=== PATIENT | female | born 1955 | race African-American/Black ===

== ENCOUNTER → 2016-11-12 | Outpatient (CLI) | payer MEDICARE, OTHER | LOC: RAD 16:34 | PROVIDERS: ATTEND Internal Medicine | DX: M25.561 Pain in right knee (principal); M17.11 Unilateral primary osteoarthritis, right knee ==

== ENCOUNTER → 2017-01-09 | Outpatient (CLI) | payer MEDICARE, OTHER ==
--- NOTE | 2017-01-10 13:13 | WOMENS IMAGING REPORT ---
EXAM DESCRIPTION: BILAT SCREENING MAMMO W/CAD COMPLETED DATE/TIME: 01/09/2017 8:06 am REASON FOR STUDY: Z12.31, ROUTINE SCREENING MAMMO Z12.31 ENCNTR SCREEN MAMMOGRAM FOR MALIGNANT NEOP LASM OF LISA COMPARISON: 2012, 2014 TECHNIQUE: Standard craniocaudal and mediolateral oblique views of each breast recorded using [employer] l acquisition. LIMITATIONS: None. FINDINGS: Findings present which are benign by mammographic criteria. No suspicious masses, calcifi cations or architectural distortion. Pertinent benign findings: Stable bilateral breast parenchymal calcifications Read with the assistance of CAD. .[facility] - R2 Cenova Version 1.3 .[facility] - R2 Cenova Version 1.3 .[facility] - R2 Cenova Version 2.4 .[facility]2 Cenova Version 2.4 .[facility] - R2 Music Artist Version 9.2 Benign mammographic findings may include one or more of the following: Smooth masses, popcorn/rim/co arse calcifications, asymmetries, post-procedure changes, and lesions with long-standing stability. IMPRESSION: BENIGN MAMMOGRAPHIC FINDINGS. BIRADS 2 BREAST DENSITY: b. There are scattered areas of fibroglandular density. BIRAD: 2 BENIGN FINDING(S) RECOMMENDATION: ROUTINE SCREENING Please consider bilateral screening tomosynthesis in January 2018 COMMENT: The patient has been notified of the results by letter per SA requirements. Additional no tification policies are in place for contacting patient with suspicious or incomplete findings. Quality ID #[id number]: The [employer] recommends an annual screening mammogram for women aged 40 years or over. This facility utilizes a reminder system to ensure that all patients receive reminder letters, and/or direct phone calls for appointments. This includes reminders for routine scr eening mammograms, diagnostic mammograms, or other Breast Imaging Interventions when appropriate. Th is patient will be placed in the appropriate reminder system. The [employer] (ACR) has developed recommendations for screening MRI of the breast s in certain patient populations, to be used in conjunction with mammography. Breast MRI surveillanc e may be appropriate for women with more than 20% lifetime risk of developing breast cancer as deter mined by genetic testing, significant family history of the disease, or history of mantle radiation f or Hodgkins Disease. ACR Practice Guidelines 2008. TECHNICAL DOCUMENTATION: FINDING NUMBER: (1) ASSESSMENT: (1) JOB ID: [id number] [employer]- All Rights Reserved
== END ==
LOC: WI 13:26
PROVIDERS: ATTEND Internal Medicine
DX: Z12.31 Encounter for screening mammogram for malignant neoplasm of breast (principal)
CPT/HCPCS: 77067; G0202

== ENCOUNTER → 2017-01-10 | Outpatient (CLI) | payer MEDICARE, OTHER ==
[2017-01-10 16:31] LABS: ANION GAP 10 (5-19); BLOOD UREA NITROGEN 34 mg/dL (7-20); CALCIUM 9.1 mg/dL (8.4-10.2); CARBON DIOXIDE 15 mmol/L (22-30); CHLORIDE 112 mmol/L (98-107); CREATININE RESULT 1.03 mg/dL (0.52-1.25); GLUCOSE 229 mg/dL (75-110); POTASSIUM 5.3 mmol/L (3.6-5.0); SODIUM 137.4 mmol/L (137-145)
== END ==
LOC: OD 15:22
PROVIDERS: ATTEND Internal Medicine
DX: E87.5 Hyperkalemia (principal)
CPT/HCPCS: 36415; 80048

== ENCOUNTER → 2017-01-20 | Outpatient (CLI) | payer MEDICARE, OTHER ==
--- NOTE | 2017-01-20 15:55 | RADIOLOGY REPORT (SQ) ---
EXAM DESCRIPTION: MRI CERVICAL SPINE WITHOUT COMPLETED DATE/TIME: 01/20/2017 12:50 pm REASON FOR STUDY: NERVE PAIN M89.9 DISORDER OF BONE, UNSPECIFIED COMPARISON: None. TECHNIQUE: Sagittal and Axial imaging includes T1, T2, STIR and gradient echo sequences. LIMITATIONS: None. FINDINGS: ALIGNMENT: Normal. VERTEBRAE: Intact. BONE MARROW: Fatty endplate changes along the inferior aspect of C6 and upper endplate of C7. DISCS: Disc space loss of height with mild anterior osteophyte formation at C6-7. Elsewhere, there i s decreased T2 weighted intervertebral disc signal with maintained disc space height. HARDWARE: None in the spine. CORD AND BASE OF BRAIN: Normal in size and signal intensity. SOFT TISSUES: No soft tissue masses. C1-C2: No significant spinal stenosis. C2-C3: No significant spinal stenosis or exit foraminal stenosis. C3-C4: No significant spinal stenosis or exit foraminal stenosis. Minimal posterior disc bulging. C4-C5: No significant spinal stenosis or exit foraminal stenosis. Minimal posterior disc bulging C5-C6: Tiny central disc protrusion/herniation with inferior migration of the extruded fragment. Th is partly effaces the ventral thecal sac and abuts the ventral cord without abnormal intrinsic cord s ignal. Minimal ventral cord flattening. Borderline central canal narrowing. No significant foramin al stenosis. C6-C7: Mild diffuse posterior disc bulge and bony spurring is present with ligamentum flavum thickeni ng. Borderline central canal narrowing with partial effacement of the CSF around the cervical cord. No cord flattening or abnormal intrinsic cord signal. Mild right foraminal narrowing from facet and uncovertebral hypertrophy. No significant left foraminal narrowing. C7-T1: No significant spinal stenosis or exit foraminal stenosis. OTHER: No other significant finding. IMPRESSION: Tiny central disc herniation with slight inferior migration of the extruded fragment at C5-6. This causes minimal ventral cord flattening without abnormal intrinsic cord signal. Borderlin e central canal narrowing. No foraminal narrowing. Broad diffuse posterior disc bulge and bony spurring at C6-7, with borderline central canal and mild right foraminal narrowing. TECHNICAL DOCUMENTATION: JOB ID: [id number]- All Rights Reserved
== END ==
LOC: RAD 11:28
PROVIDERS: ATTEND Internal Medicine
DX: M79.2 Neuralgia and neuritis, unspecified (principal); M50.222 Other cervical disc displacement at C5-C6 level
CPT/HCPCS: 72141

== ENCOUNTER → 2017-03-14 | Outpatient (CLI) | payer MEDICARE, OTHER ==
--- NOTE | 2017-03-14 12:02 | RADIOLOGY REPORT (SQ) ---
EXAM DESCRIPTION: CHEST PA/LATERAL COMPLETED DATE/TIME: 03/14/2017 11:39 am REASON FOR STUDY: PRE-OP COMPARISON: 01/06/2016 EXAM PARAMETERS: NUMBER OF VIEWS: two views TECHNIQUE: Digital Frontal and Lateral radiographic views of the chest acquired. RADIATION DOSE: NA LIMITATIONS: none FINDINGS: LUNGS AND PLEURA: No opacities, masses or pneumothorax. No pleural effusion. MEDIASTINUM AND HILAR STRUCTURES: No masses or contour abnormalities. HEART AND VASCULAR STRUCTURES: Heart normal size. No evidence for failure. BONES: No acute findings. HARDWARE: None in the chest. OTHER: No other significant finding. IMPRESSION: NO SIGNIFICANT RADIOGRAPHIC FINDING IN THE CHEST. TECHNICAL DOCUMENTATION: JOB ID: [id number] [employer]- All Rights Reserved
[2017-03-14 12:17] LABS: ABSOLUTE LYMPHOCYTES (AUTO) 1.3 10^3/uL (0.5-4.7); ABSOLUTE MONOCYTES (AUTO) 0.3 10^3/uL (0.1-1.4); BASOPHILS % (AUTO) 0.5 % (0-2); EOSINOPHILS % (AUTO) 0.4 % (0-6); HEMATOCRIT 31.9 % (36.0-47.0); HEMOGLOBIN 10.5 g/dL (12.0-15.5); HGB HCT DIFFERENCE -0.4; LYMPHOCYTES % (AUTO) 23.5 % (13-45); MEAN CORPUSCULAR HEMOGLOBIN 27.7 pg (27.0-33.4); MEAN CORPUSCULAR HGB CONC 32.7 g/dL (32.0-36.0); MEAN CORPUSCULAR VOLUME 85 fl (80-97); MONOCYTES % (AUTO) 5.8 % (3-13); RED BLOOD COUNT 3.77 10^6/uL (3.72-5.28); RED CELL DISTRIBUTION WIDTH 15.3 % (11.5-14.0); SEGMENTED NEUTROPHILS % (AUTO) 69.8 % (42-78); WHITE BLOOD COUNT 5.7 10^3/uL (4.0-10.5)
[2017-03-14 12:18] LABS: ABSOLUTE LYMPHOCYTES (AUTO) 1.3 10^3/uL (0.5-4.7); ABSOLUTE MONOCYTES (AUTO) 0.3 10^3/uL (0.1-1.4); BASOPHILS % (AUTO) 0.5 % (0-2); EOSINOPHILS % (AUTO) 0.4 % (0-6); HEMATOCRIT 31.9 % (36.0-47.0); HEMOGLOBIN 10.5 g/dL (12.0-15.5); HGB HCT DIFFERENCE -0.4; LYMPHOCYTES % (AUTO) 23.5 % (13-45); MEAN CORPUSCULAR HEMOGLOBIN 27.7 pg (27.0-33.4); MEAN CORPUSCULAR HGB CONC 32.7 g/dL (32.0-36.0); MEAN CORPUSCULAR VOLUME 85 fl (80-97); MONOCYTES % (AUTO) 5.8 % (3-13); RED BLOOD COUNT 3.77 10^6/uL (3.72-5.28); RED CELL DISTRIBUTION WIDTH 15.3 % (11.5-14.0); SEGMENTED NEUTROPHILS % (AUTO) 69.8 % (42-78); WHITE BLOOD COUNT 5.7 10^3/uL (4.0-10.5)
[2017-03-14 12:31] LABS: APPEARANCE,URINE SLIGHTLY-CLOUDY; BILIRUBIN,URINE NEGATIVE (NEGATIVE); GLUCOSE, URINE >=500 mg/dL (NEGATIVE); KETONES,URINE NEGATIVE (NEGATIVE); LEUKOCYTE ESTERASE,URINE NEGATIVE (NEGATIVE); NITRITE,URINE NEGATIVE (NEGATIVE); PROTEIN,URINE NEGATIVE (NEGATIVE); URINE SPECIFIC GRAVITY 1.018; UROBILINOGEN,URINE NEGATIVE mg/dL (<2.0)
[2017-03-14 12:45] LABS: ANION GAP 9 (5-19); BLOOD UREA NITROGEN 18 mg/dL (7-20); CALCIUM 10.3 mg/dL (8.4-10.2); CARBON DIOXIDE 25 mmol/L (22-30); CHLORIDE 107 mmol/L (98-107); CREATININE RESULT 0.97 mg/dL (0.52-1.25); GLUCOSE 98 mg/dL (75-110); MAGNESIUM 2.3 mg/dL (1.6-2.3); PHOSPHORUS 3.9 mg/dL (2.5-4.5); POTASSIUM 4.8 mmol/L (3.6-5.0); SODIUM 141.1 mmol/L (137-145)
[2017-03-14 12:46] LABS: APPEARANCE,URINE SLIGHTLY-CLOUDY; BILIRUBIN,URINE NEGATIVE (NEGATIVE); GLUCOSE, URINE >=500 mg/dL (NEGATIVE); KETONES,URINE NEGATIVE (NEGATIVE); LEUKOCYTE ESTERASE,URINE NEGATIVE (NEGATIVE); NITRITE,URINE NEGATIVE (NEGATIVE); PROTEIN,URINE NEGATIVE (NEGATIVE); URINE SPECIFIC GRAVITY 1.018; UROBILINOGEN,URINE NEGATIVE mg/dL (<2.0)
[2017-03-14 13:03] LABS: BLOOD UREA NITROGEN 18 mg/dL (7-20); CALCIUM 10.3 mg/dL (8.4-10.2); CREATININE RESULT 0.97 mg/dL (0.52-1.25); GLUCOSE 98 mg/dL (75-110); POTASSIUM 4.8 mmol/L (3.6-5.0)
[2017-03-14 13:04] LABS: ANION GAP 9 (5-19); CARBON DIOXIDE 25 mmol/L (22-30); CHLORIDE 107 mmol/L (98-107); SODIUM 141.1 mmol/L (137-145)
--- NOTE | 2017-03-14 13:16 | EKG REPORT ---
SEVERITY:- ABNORMAL ECG - SINUS RHYTHM PROBABLE LEFT VENTRICULAR HYPERTROPHY : Confirmed by: Justo Hinson MD 14-Mar-2017 13:15:36
== END ==
LOC: OD 10:16
PROVIDERS: ATTEND Surgery Trauma Surgery
DX: Z01.810 Encounter for preprocedural cardiovascular examination (principal); Z01.812 Encounter for preprocedural laboratory examination; Z01.818 Encounter for other preprocedural examination; E11.9 Type 2 diabetes mellitus without complications; Z79.899 Other long term (current) drug therapy
CPT/HCPCS: 36415; 71020; 80048; 80197; 81001; 83036; 83735; 84100; 85025; 93005; 93010

== ENCOUNTER → 2017-06-02 | Outpatient (CLI) | payer MEDICARE, OTHER ==
[2017-06-02 15:06] LABS: ABSOLUTE EOSINOPHILS # (AUTO) 0.1 10^3/uL (0.0-0.6); ABSOLUTE MONOCYTES (AUTO) 0.3 10^3/uL (0.1-1.4); ABSOLUTE NEUT (AUTO) 4.1 10^3/uL (1.7-8.2); BASOPHILS % (AUTO) 0.5 % (0-2); HEMOGLOBIN 10.6 g/dL (12.0-15.5); HGB HCT DIFFERENCE -1.2; LYMPHOCYTES % (AUTO) 18.1 % (13-45); MEAN CORPUSCULAR HEMOGLOBIN 26.8 pg (27.0-33.4); MEAN CORPUSCULAR HGB CONC 32.2 g/dL (32.0-36.0); MEAN CORPUSCULAR VOLUME 83 fl (80-97); MONOCYTES % (AUTO) 5.5 % (3-13); RED BLOOD COUNT 3.96 10^6/uL (3.72-5.28); RED CELL DISTRIBUTION WIDTH 15.3 % (11.5-14.0); SEGMENTED NEUTROPHILS % (AUTO) 74.9 % (42-78); WHITE BLOOD COUNT 5.4 10^3/uL (4.0-10.5)
[2017-06-02 15:09] LABS: APPEARANCE,URINE CLEAR; BILIRUBIN,URINE NEGATIVE (NEGATIVE); GLUCOSE, URINE NEGATIVE (NEGATIVE); KETONES,URINE NEGATIVE (NEGATIVE); LEUKOCYTE ESTERASE,URINE NEGATIVE (NEGATIVE); NITRITE,URINE NEGATIVE (NEGATIVE); PROTEIN,URINE NEGATIVE (NEGATIVE); URINE SPECIFIC GRAVITY 1.006; UROBILINOGEN,URINE NEGATIVE mg/dL (<2.0)
[2017-06-02 15:30] LABS: ANION GAP 12 (5-19); BLOOD UREA NITROGEN 19 mg/dL (7-20); CALCIUM 9.1 mg/dL (8.4-10.2); CARBON DIOXIDE 23 mmol/L (22-30); CHLORIDE 108 mmol/L (98-107); CREATININE RESULT 0.98 mg/dL (0.52-1.25); GLUCOSE 85 mg/dL (75-110); PHOSPHORUS 3.9 mg/dL (2.5-4.5); POTASSIUM 5.1 mmol/L (3.6-5.0); SODIUM 142.7 mmol/L (137-145)
== END ==
LOC: OD 14:03
PROVIDERS: ATTEND Surgery Trauma Surgery
DX: Z94.0 Kidney transplant status (principal)
CPT/HCPCS: 36415; 80048; 80197; 81001; 83735; 84100; 85025

== ENCOUNTER 2017-08-02 11:31 | Emergency (ER) | payer MEDICARE, OTHER ==
--- NOTE | 2017-08-02 12:11 | ER Document Report ---
ED General - General Chief Complaint: Knee Pain Stated Complaint: LEG PAIN Time Seen by Provider: 08/02/17 12:06 Mode of Arrival: Ambulatory Information source: Patient Notes: 61-year-old female presents with complaints of right knee calf swelling of 3 month duration. Patient notes symptoms started right after her surgery but she has not been evaluated for it except recently by primary care physician who was concerned about a possible blood clot, patient denies any chest pain sob TRAVEL OUTSIDE OF THE [place] IN LAST 30 DAYS: No - HPI Onset: Other Onset/Duration: Persistent Quality of pain: Achy Severity: Mild Pain Level: 1 Associated symptoms: Leg swelling Exacerbated by: Movement, Walking Relieved by: Denies Similar symptoms previously: No Recently seen / treated by doctor: No - Related Data Allergies/Adverse Reactions: No Known Allergies Allergy (Verified 08/02/17 11:31) Past Medical History - Social History Smoking Status: Never Smoker Cigarette use (# per day): No Chew tobacco use (# tins/day): No Smoking Education Provided: No Family History: Reviewed & Not Pertinent - Past Medical History Cardiac Medical History: Reports: Hx Hypercholesterolemia, Hx Hypertension, Hx Heart Murmur Denies: Hx Atrial Fibrillation, Hx Congestive Heart Failure, Hx Coronary Artery Disease, Hx Heart Attack, Hx Peripheral Vascular Disease, Hx Pulmonary Embolism Pulmonary Medical History: Reports: Hx Sleep Apnea - CPAP Denies: Hx Asthma, Hx Bronchitis, Hx COPD, Hx Pneumonia, Hx Respiratory Failure, Hx Tuberculosis Neurological Medical History: Denies: Hx Cerebrovascular Accident, Hx Seizures Endocrine Medical History: Reports: Hx Diabetes Mellitus Type 2. Denies: Hx Graves' Disease, Hx Hyperthyroidism, Hx Hypothyroidism Renal/ Medical History: Reports: Hx End Stage Renal Disease - prior to transplant, Hx Hemodialysis. Denies: Hx Kidney Stones, Hx Peritoneal Dialysis Malignancy Medical History: Denies: Hx Lung Cancer GI Medical History: Musculoskeltal Medical History: Reports Hx Arthritis, Denies Hx Fibromyalgia, Denies Hx Multiple Sclerosis, Denies Hx Muscular Dystrophy Psychiatric Medical History: Denies: Hx Dementia Traumatic Medical History: Denies: Hx Fractures Past Surgical History: Reports: Hx Abdominal Surgery - kidney transplant 2015, Hx Cholecystectomy, Hx Gastric Bypass Surgery, Hx Gynecologic Surgery - hysterectomy, Hx Hysterectomy, Hx Kidney (Renal Surgery) - renal transplant September 2015, Hx Orthopedic Surgery - rt knee 04/22, Hx Vascular Surgery - Left upper arm AV fistula, Other - Left vitrectomy, left carpal tunnel release, gastric bypass 04/17/2011. Denies: Hx Appendectomy, Hx Bowel Surgery, Hx Section, Hx Coronary Artery Bypass Graft, Hx Herniorrhaphy, Hx Mastectomy, Hx Pacemaker, Hx Tonsillectomy, Hx Tubal Ligation - Immunizations Immunizations up to date: Yes Hx Diphtheria, Pertussis, Tetanus Vaccination: Yes Hx Pneumococcal Vaccination: 03/07/14 Review of Systems - Review of Systems Notes: REVIEW OF SYSTEMS: CONSTITUTIONAL : Denies fever, chills, or sweats. Denies recent illness. EENT: Denies eye, ear, throat, or mouth pain or symptoms. Denies nasal or sinus congestion or discharge. Denies throat, tongue, or mouth swelling or difficulty swallowing. CARDIOVASCULAR: Denies chest pain. Denies palpitations or racing or irregular heart beat. Denies ankle edema. RESPIRATORY: Denies cough, cold, or chest congestion. Denies shortness of breath, difficulty breathing, or wheezing. GASTROINTESTINAL: Denies abdominal pain or distention. Denies nausea, vomiting , or diarrhea. Denies blood in vomitus, stools, or per rectum. Denies black, tarry stools. Denies constipation. GENITOURINARY: Denies difficulty urinating, painful urination, burning, frequency, blood in urine, or discharge. FEMALE GENITOURINARY: Denies vaginal bleeding, heavy or abnormal periods, irregular periods. Denies vaginal discharge or odor. MUSCULOSKELETAL: leg pain SKIN: Denies rash, lesions or sores. HEMATOLOGIC : Denies easy bruising or bleeding. LYMPHATIC: Denies swollen, enlarged glands. NEUROLOGICAL: Denies confusion or altered mental status. Denies passing out or loss of consciousness. Denies dizziness or lightheadedness. Denies headache. Denies weakness or paralysis or loss of use of either side. Denies problems with gait or speech. Denies sensory loss, numbness, or tingling. Denies seizures. PSYCHIATRIC: Denies anxiety or stress. Denies depression, suicidal ideation, or homicidal ideation. ALL OTHER SYSTEMS REVIEWED AND NEGATIVE. PHYSICAL EXAMINATION: GENERAL: Well-appearing, well-nourished and in no acute distress. HEAD: Atraumatic, normocephalic. EYES: Pupils equal round and reactive to light, extraocular movements intact, conjunctiva are normal. ENT: Nares patent, oropharynx clear without exudates. Moist mucous membranes. NECK: Normal range of motion, supple without lymphadenopathy LUNGS: Breath sounds clear to auscultation bilaterally and equal. No wheezes rales or rhonchi. HEART: Regular rate and rhythm without murmurs ABDOMEN: Soft, nontender, nondistended abdomen. No guarding, no rebound. No masses appreciated. Female : deferred Musculoskeletal: right leg edema, knee pain with rom NEUROLOGICAL: Cranial nerves grossly intact. Normal speech, normal gait. Normal sensory, motor exams PSYCH: Normal mood, normal affect. SKIN: post surgical Dictation was performed using [employer] recognition software Physical Exam - Vital signs Vitals: Temp Pulse Resp BP Pulse Ox 98.5 F 66 16 169/53 H 96 08/02/17 11:36 08/02/17 11:36 08/02/17 11:36 08/02/17 11:36 08/02/17 11:36 Course - Re-evaluation Re-evalutation: 08/02/17 12:11 Doppler pending this appears to be chronic for the past 4 months 08/02/17 13:43 Doppler was negative for DVT, patient will be discharged home to follow-up with orthopedics and primary care physician After performing a Medical Screening Examination, I estimate there is LOW risk for RUPTURED ESOPHAGUS, PNEUMOTHORAX, PULMONARY EMBOLISM, ACUTE CORONARY SYNDROME, OR THORACIC AORTIC DISSECTION, thus I consider the discharge disposition reasonable. I have reevaluated this patient multiple times and no significant life threatening changes are noted. The patient and I have discussed the diagnosis and risks, and we agree with discharging home with close follow-up. We also discussed returning to the Emergency Department immediately if new or worsening symptoms occur. We have discussed the symptoms which are most concerning (e.g., bloody sputum, worsening pain or shortness of breath) that necessitate immediate return. - Vital Signs Vital signs: Temp Pulse Resp BP Pulse Ox 98.5 F 66 16 169/53 H 96 08/02/17 11:36 08/02/17 11:36 08/02/17 11:36 08/02/17 11:36 08/02/17 11:36 - Diagnostic Test Radiology reviewed: Image reviewed, Reports reviewed Discharge - Discharge Clinical Impression: Right leg pain Right knee pain Qualifiers: Chronicity: acute Qualified Code(s): M25.561 - Pain in right knee Condition: Stable Disposition: HOME, SELF-CARE Instructions: Leg Pain Nonspecific ([facility]) Referrals: ESTELA MOLINA MD [ACTIVE STAFF] - Follow up tomorrow
[2017-08-02 13:54] VITALS: BP 141/51
--- NOTE | 2017-08-02 14:15 | RADIOLOGY REPORT (SQ) ---
EXAM DESCRIPTION: VENOUS UNILATERAL LOWER COMPLETED DATE/TIME: 08/02/2017 1:56 pm REASON FOR STUDY: right leg edema, replacement knee 3 months ago COMPARISON: 10/17/2015. TECHNIQUE: Dynamic and static chavez scale and color images acquired of the right leg venous system. S elected spectral images acquired with additional compression and augmentation maneuvers. The contrala teral common femoral vein and saphenofemoral junction were also imaged. Images stored on PACS. LIMITATIONS: None. FINDINGS: COMMON FEMORAL: Normal phasicity, compression and augmentation. No visualized echogenic ma terial on chavez scale. No defects on color images. FEMORAL: Normal compression and augmentation. No visualized echogenic material on chavez scale. No defe cts on color images. POPLITEAL: Normal compression, augmentation. No visualized echogenic material on chavez scale. No defec ts on color images. CALF VESSELS: Normal compression, augmentation. No visualized echogenic material on chavez scale. No de fects on color images. GSV and SSV: Normal compression, augmentation. No visualized echogenic material on chavez scale. No def ects on color images. OTHER: Minimal soft tissue interstitial edema noted right lower leg. CONTRALATERAL COMMON FEMORAL VEIN AND SAPHENOFEMORAL JUNCTION: Normal phasicity, compression and augmentation. No visualized echogenic material on chavez scale. No de fects on color images. IMPRESSION: MINIMAL SOFT TISSUE EDEMA RIGHT LOWER LEG. NO EVIDENCE OF DEEP VEIN THROMBOSIS. TECHNICAL DOCUMENTATION: JOB ID: [id number] [employer]- All Rights Reserved
== END 2017-08-02 13:54 | disposition home or self-care (01) ==
LOC: ER 11:31
DX: M25.561 Pain in right knee (principal); M79.604 Pain in right leg; R60.0 Localized edema; I10 Essential (primary) hypertension; E11.9 Type 2 diabetes mellitus without complications; Z94.0 Kidney transplant status
CPT/HCPCS: 93971; 99283

== ENCOUNTER → 2017-09-01 | Outpatient (CLI) | payer MEDICARE, OTHER ==
--- NOTE | 2017-09-01 13:43 | RADIOLOGY REPORT (SQ) ---
EXAM DESCRIPTION: MRI THORACIC SPINE COMBO COMPLETED DATE/TIME: 09/01/2017 11:08 am REASON FOR STUDY: ABN FINDINGS ON DX IMAGING OF OTHER SPECIFIED BODY STRUCTURES (R93.8) R93.8 ABNOR MAL FINDINGS ON DIAGNOSTIC IMAGING OF BODY STRUCT COMPARISON: Bone scan 06/27/2014, 08/16/2015 CT lumbar spine 01/31/2015 Lumbar spine plain films 02/14/2015 MRI lumbar spine 09/01/2017 MRI cervical spine 01/20/2017 TECHNIQUE: Sagittal and Axial imaging includes T1, T2, STIR and gradient echo sequences. T1 post ga dolinium sequences. CONTRAST TYPE AND DOSE: 10 mL Multihance. RENAL FUNCTION: GFR > 60. LIMITATIONS: Mild motion artifact throughout the study FINDINGS: LOCALIZER: No worrisome findings. ALIGNMENT: Normal. VERTEBRAE: No compression deformities. There is patchy sclerosis in the T12 vertebral body, similar compared to prior studies BONE MARROW: Sclerosis in the T12 vertebral body without dorsal bowing of the bony cortex or epidural spread of tumor. Advanced fatty degenerative endplate changes at T8-9. HARDWARE: None in the spine. CORD: Normal in size and signal intensity. SOFT TISSUES: No soft tissue masses. THORACIC DISCS T1-T12: No significant central or foraminal stenosis. No disc herniation. LOWER CERVICAL: Not well-visualized UPPER LUMBAR: Please see MRI report from lumbar spine same date ENHANCEMENT: No abnormal thoracic cord or conus enhancement. No definite abnormal vertebral body enh ancement. OTHER: No other significant finding. IMPRESSION: No MR evidence of significant central canal stenosis or cord impingement. No abnormal c onus or thoracic cord contrast enhancement. TECHNICAL DOCUMENTATION: JOB ID: [id number] [employer]- All Rights Reserved Reading location - IP/workstation name: [email or web address]
--- NOTE | 2017-09-01 13:53 | RADIOLOGY REPORT (SQ) ---
EXAM DESCRIPTION: MRI LUMBAR SPINE COMBO COMPLETED DATE/TIME: 09/01/2017 11:08 am REASON FOR STUDY: ABN FINDINGS ON DX IMAGING OF OTHER SPECIFIED BODY STRUCTURES (R93.8) R93.8 ABNOR MAL FINDINGS ON DIAGNOSTIC IMAGING OF BODY STRUCT COMPARISON: Bone scan 06/27/2014, 08/16/2015 CT lumbar spine 01/31/2015, 06/01/2014 Lumbar spine plain films 02/14/2015 MRI thoracic spine 09/01/2017 MRI cervical spine 01/20/2017 TECHNIQUE: Sagittal and Axial imaging includes T1, T1 post gadolinium, T2, STIR and gradient echo se quences. Coronal T2/HASTE imaging. CONTRAST TYPE AND DOSE: 10 mL Multihance. RENAL FUNCTION: GFR > 60. LIMITATIONS: None. 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 SEGMENTATION: No transitional anatomy. The lowest well-developed disc space is labeled L5-S1. ALIGNMENT: Anatomic. VERTEBRAE: Diffuse sclerosis in the T12 vertebral body, similar compared to previous studies BONE MARROW: Stable sclerosis of the T12 vertebral body. Fatty marrow changes at the anterior superi or corner of L1, and L2, and along the inferior endplate of L4. DISC SIGNAL: Diffuse decreased T2 weighted intervertebral disc signal POSTERIOR ELEMENTS: Generally intact. No pars defect evident. HARDWARE: None in the spine. CORD AND CONUS: Normal in size and signal intensity. Conus at the L2 level. SOFT TISSUES: No aortic aneurysm seen. No bulky retroperitoneal adenopathy or mass. No paraspinal mas s or fluid. T10-11, T11-12 and T12-L1 exhibit bilateral facet arthropathy without central or foraminal encroachme nt. L1-L2: No significant spinal stenosis or exit foraminal stenosis. L2-L3: No significant spinal stenosis or exit foraminal stenosis. Mild bilateral facet arthropathy L3-L4: Minimal posterior disc bulging, mild bilateral facet arthropathy. No significant central or f oraminal encroachment. L4-L5: Broad diffuse posterior disc bulging right greater than left and moderate bilateral facet and ligament hypertrophy. Borderline central canal narrowing. Mild bilateral inferior foraminal narrowi ng without exiting L4 nerve root impingement. L5-S1: Mild posterior disc bulging is present, mild bilateral facet hypertrophy. No central or broderick inal encroachment. SACRUM: Visualized upper sacrum intact. ENHANCEMENT: No abnormal conus or lumbar nerve root enhancement. No abnormal vertebral body marrow e nhancement. OTHER: No other significant findings. IMPRESSION: Stable T12 vertebral body sclerosis compared to previous exams. No abnormal conus or lumbar nerve root enhancement or nodules TECHNICAL DOCUMENTATION: JOB ID: [id number] [employer]- All Rights Reserved Reading location - IP/workstation name: [email or web address]
== END ==
LOC: RAD 09:07
PROVIDERS: ATTEND Internal Medicine Medical Oncology
DX: G95.89 Other specified diseases of spinal cord (principal); R93.8 Abnormal findings on diagnostic imaging of other specified body structures
CPT/HCPCS: 82565; 72157; 72158; A9577

== ENCOUNTER → 2017-09-09 | Outpatient (CLI) | payer MEDICARE, OTHER ==
[2017-09-09 13:41] LABS: ABSOLUTE EOSINOPHILS # (AUTO) 0.1 10^3/uL (0.0-0.6); ABSOLUTE LYMPHOCYTES (AUTO) 1.1 10^3/uL (0.5-4.7); ABSOLUTE MONOCYTES (AUTO) 0.3 10^3/uL (0.1-1.4); ABSOLUTE NEUT (AUTO) 3.8 10^3/uL (1.7-8.2); BASOPHILS % (AUTO) 0.6 % (0-2); HEMATOCRIT 34.9 % (36.0-47.0); HEMOGLOBIN 11.3 g/dL (12.0-15.5); MEAN CORPUSCULAR HEMOGLOBIN 27.3 pg (27.0-33.4); MEAN CORPUSCULAR HGB CONC 32.3 g/dL (32.0-36.0); MEAN CORPUSCULAR VOLUME 85 fl (80-97); MONOCYTES % (AUTO) 6.2 % (3-13); PLATELET COUNT 176 10^3/uL (150-450); RED BLOOD COUNT 4.12 10^6/uL (3.72-5.28); RED CELL DISTRIBUTION WIDTH 16.4 % (11.5-14.0); SEGMENTED NEUTROPHILS % (AUTO) 71.2 % (42-78); TOTAL CELLS COUNTED % (AUTO) 100 %; WHITE BLOOD COUNT 5.4 10^3/uL (4.0-10.5)
[2017-09-09 13:43] LABS: ABSOLUTE EOSINOPHILS # (AUTO) 0.1 10^3/uL (0.0-0.6); ABSOLUTE MONOCYTES (AUTO) 0.3 10^3/uL (0.1-1.4); ABSOLUTE NEUT (AUTO) 3.7 10^3/uL (1.7-8.2); BASOPHILS % (AUTO) 0.5 % (0-2); HEMATOCRIT 34.9 % (36.0-47.0); HEMOGLOBIN 11.3 g/dL (12.0-15.5); MEAN CORPUSCULAR HEMOGLOBIN 27.6 pg (27.0-33.4); MEAN CORPUSCULAR HGB CONC 32.5 g/dL (32.0-36.0); MEAN CORPUSCULAR VOLUME 85 fl (80-97); MONOCYTES % (AUTO) 5.8 % (3-13); PLATELET COUNT 182 10^3/uL (150-450); RED CELL DISTRIBUTION WIDTH 16.3 % (11.5-14.0); SEGMENTED NEUTROPHILS % (AUTO) 71.7 % (42-78); TOTAL CELLS COUNTED % (AUTO) 100 %; WHITE BLOOD COUNT 5.2 10^3/uL (4.0-10.5)
[2017-09-09 14:02] LABS: ALANINE AMINOTRANSFERASE 30 U/L (9-52); ALBUMIN 4.1 g/dL (3.5-5.0); ALKALINE PHOSPHATASE 199 U/L (38-126); ANION GAP 9 (5-19); ASPARTATE AMINO TRANSFERASE 22 U/L (14-36); BILIRUBIN,DIRECT 0.4 mg/dL (0.0-0.4); BILIRUBIN,TOTAL 0.4 mg/dL (0.2-1.3); BLOOD UREA NITROGEN 20 mg/dL (7-20); CARBON DIOXIDE 26 mmol/L (22-30); CHLORIDE 104 mmol/L (98-107); GLUCOSE 175 mg/dL (75-110); PHOSPHORUS 3.6 mg/dL (2.5-4.5); POTASSIUM 5.2 mmol/L (3.6-5.0); SODIUM 138.8 mmol/L (137-145)
[2017-09-09 14:13] LABS: ANION GAP 9 (5-19); BLOOD UREA NITROGEN 20 mg/dL (7-20); CARBON DIOXIDE 26 mmol/L (22-30); CHLORIDE 104 mmol/L (98-107); GLUCOSE 175 mg/dL (75-110); PHOSPHORUS 3.6 mg/dL (2.5-4.5); POTASSIUM 5.2 mmol/L (3.6-5.0); SODIUM 138.8 mmol/L (137-145)
[2017-09-09 14:15] LABS: APPEARANCE,URINE SLIGHTLY-CLOUDY; BILIRUBIN,URINE NEGATIVE (NEGATIVE); COLOR,URINE YELLOW; GLUCOSE, URINE NEGATIVE (NEGATIVE); KETONES,URINE NEGATIVE (NEGATIVE); LEUKOCYTE ESTERASE,URINE NEGATIVE (NEGATIVE); NITRITE,URINE NEGATIVE (NEGATIVE); PROTEIN,URINE 30 mg/dL (NEGATIVE); URINE SPECIFIC GRAVITY 1.015; UROBILINOGEN,URINE NEGATIVE mg/dL (<2.0)
[2017-09-09 14:21] LABS: APPEARANCE,URINE SLIGHTLY-CLOUDY; BILIRUBIN,URINE NEGATIVE (NEGATIVE); COLOR,URINE YELLOW; GLUCOSE, URINE NEGATIVE (NEGATIVE); KETONES,URINE NEGATIVE (NEGATIVE); LEUKOCYTE ESTERASE,URINE NEGATIVE (NEGATIVE); NITRITE,URINE NEGATIVE (NEGATIVE); PROTEIN,URINE 30 mg/dL (NEGATIVE); URINE SPECIFIC GRAVITY 1.015; UROBILINOGEN,URINE NEGATIVE mg/dL (<2.0)
[2017-09-09 14:42] LABS: UR PRO/CREAT RATIO RESULT 0.3 mg/mg (0.0-0.2); URINE CREATININE 113.5 mg/dL (15-278); URINE PROTEIN 33.8 mg/dL (<12)
[2017-09-11 16:40] LABS: MYCOPHENOLIC ACID 3.8 ug/mL (1.0-3.5)
[2017-09-12 08:16] LABS: TACROLIMUS (FK506) 3.4 ng/mL (2.0-20.0)
== END ==
LOC: OD 12:54
PROVIDERS: ATTEND Surgery Trauma Surgery
DX: N18.2 Chronic kidney disease, stage 2 (mild) (principal); E11.29 Type 2 diabetes mellitus with other diabetic kidney complication; D63.1 Anemia in chronic kidney disease; R80.9 Proteinuria, unspecified; N25.81 Secondary hyperparathyroidism of renal origin; Z79.899 Other long term (current) drug therapy; Z94.0 Kidney transplant status
CPT/HCPCS: 36415; 80048; 80053; 80197; 81001; 82542; 82570; 83735; 83970; 84100; 84156; 85025

== ENCOUNTER → 2017-12-08 | Outpatient (CLI) | payer MEDICARE, OTHER ==
--- NOTE | 2017-12-09 08:22 | RADIOLOGY REPORT (SQ) ---
EXAM DESCRIPTION: MRI HEAD WITHOUT COMPLETED DATE/TIME: 12/08/2017 8:04 pm REASON FOR STUDY: R41.1 ANTEROGRADE AMNESIA R41.1 ANTEROGRADE AMNESIA COMPARISON: None. TECHNIQUE: Multiplanar imaging includes non-contrasted T1, T2, FLAIR, and diffusion with ADC map seq uences. Images stored on PACS. LIMITATIONS: None. FINDINGS: ANATOMY: No anomalies. Normal vascular flow voids. Pituitary fossa normal. CSF SPACES: Normal in size and contour. No hemorrhage. CEREBRUM: Sulci and gyri normal in size and contour. Normal white matter signal on FLAIR imaging. No evidence of hemorrhage, mass, or extraaxial fluid collection. POSTERIOR FOSSA: No signal alteration. No hemorrhage. No edema, masses or mass effect. Internal franklyn tory canals, cerebello-pontine angles, mastoids normal. DIFFUSION IMAGING: Negative for acute or sub-acute infarction. ORBITS: No masses. Globes normal. PARANASAL SINUSES: No fluid levels. Mucosa normal. OTHER: No other significant finding. IMPRESSION: NORMAL MRI OF THE BRAIN WITHOUT INTRAVENOUS GADOLINIUM CONTRAST. EVIDENCE OF ACUTE STROKE: NO. TECHNICAL DOCUMENTATION: JOB ID: [id number] [employer]- All Rights Reserved Reading location - IP/workstation name: [email or web address]
== END ==
LOC: RAD 19:23
PROVIDERS: ATTEND Internal Medicine
DX: R41.1 Anterograde amnesia (principal)
CPT/HCPCS: 70551

== ENCOUNTER 2018-02-11 08:51 | Inpatient (IN) | payer MEDICARE, OTHER ==
[2018-02-11] MEDS ORDERED: NORMAL SALINE 1000 ML 1,000 ML IV ONE (09:24)
[2018-02-11] MEDS ORDERED: ONDANSETRON HCL INJ/PF 4 MG/2 ML SDV IV ONE (09:24)
--- NOTE | 2018-02-11 09:25 | ER Document Report ---
ED General - General Stated Complaint: NAUSEA,VOMITING Time Seen by Provider: 02/11/18 09:18 Notes: This is a 62-year-old female patient emergency department chief complaint of nausea vomiting generally feeling weak. States that she does not feel well. Has been vomiting all day. Patient is status post renal transplant. Status post dialysis. Followed by Dr. Calix. Intermittent fevers at home. Having some low back pain as well. TRAVEL OUTSIDE OF THE [place] IN LAST 30 DAYS: No - HPI Onset: Yesterday Onset/Duration: Gradual, Persistent, Worse Quality of pain: Achy Severity: Moderate Pain Level: 3 Associated symptoms: Body/muscle aches, Nausea, Vomiting - Related Data Allergies/Adverse Reactions: No Known Allergies Allergy (Verified 08/02/17 11:31) Past Medical History - General Information source: Patient - Social History Smoking Status: Never Smoker Frequency of alcohol use: None Drug Abuse: None Lives with: Family Family History: Reviewed & Not Pertinent - Past Medical History Cardiac Medical History: Reports: Hx Hypercholesterolemia, Hx Hypertension, Hx Heart Murmur Denies: Hx Atrial Fibrillation, Hx Congestive Heart Failure, Hx Coronary Artery Disease, Hx Heart Attack, Hx Peripheral Vascular Disease, Hx Pulmonary Embolism Pulmonary Medical History: Reports: Hx Sleep Apnea - CPAP Denies: Hx Asthma, Hx Bronchitis, Hx COPD, Hx Pneumonia, Hx Respiratory Failure, Hx Tuberculosis Neurological Medical History: Denies: Hx Cerebrovascular Accident, Hx Seizures Endocrine Medical History: Reports: Hx Diabetes Mellitus Type 2. Denies: Hx Graves' Disease, Hx Hyperthyroidism, Hx Hypothyroidism Renal/ Medical History: Reports: Hx End Stage Renal Disease - prior to transplant, Hx Hemodialysis. Denies: Hx Kidney Stones, Hx Peritoneal Dialysis Malignancy Medical History: Denies: Hx Lung Cancer GI Medical History: Musculoskeletal Medical History: Reports Hx Arthritis, Denies Hx Fibromyalgia, Denies Hx Multiple Sclerosis, Denies Hx Muscular Dystrophy Psychiatric Medical History: Denies: Hx Dementia Traumatic Medical History: Denies: Hx Fractures Past Surgical History: Reports: Hx Abdominal Surgery - kidney transplant 2015, Hx Cholecystectomy, Hx Gastric Bypass Surgery, Hx Gynecologic Surgery - hysterectomy, Hx Hysterectomy, Hx Kidney (Renal Surgery) - renal transplant September 2015, Hx Orthopedic Surgery - rt knee 04/22, Hx Vascular Surgery - Left upper arm AV fistula, Other - Left vitrectomy, left carpal tunnel release, gastric bypass 04/17/2011. Denies: Hx Appendectomy, Hx Bowel Surgery, Hx Section, Hx Coronary Artery Bypass Graft, Hx Herniorrhaphy, Hx Mastectomy, Hx Pacemaker, Hx Tonsillectomy, Hx Tubal Ligation - Immunizations Immunizations up to date: Yes Hx Diphtheria, Pertussis, Tetanus Vaccination: Yes Hx Pneumococcal Vaccination: 03/07/14 Review of Systems - Review of Systems Constitutional: Malaise, Weakness. denies: Fever EENT: denies: Double vision, Difficulty swallowing, Throat swelling Cardiovascular: Syncope. denies: Chest pain, Palpitations, Heart racing, Dyspnea Respiratory: denies: Cough, Hurts to breathe, Short of breath Gastrointestinal: Diarrhea, Nausea, Vomiting. denies: Abdominal pain Genitourinary: Flank pain. denies: Burning, Dysuria, Discharge Musculoskeletal: Back pain, Muscle pain, Muscle stiffness. denies: Joint pain, Neck pain, Leg swelling Skin: denies: Dryness, Lesions, Lumps, Rash Hematologic/Lymphatic: denies: Anemia, Blood clots, Easy bleeding, Easy bruising Neurological/Psychological: Weakness. denies: Confusion, Numbness Physical Exam - Vital signs Vitals: Temp Resp BP Pulse Ox 98.1 F 14 154/85 H 96 02/11/18 09:15 02/11/18 09:15 02/11/18 09:15 02/11/18 09:15 Interpretation: Normal - General General appearance: Appears well, Alert - HEENT Head: Normocephalic, Atraumatic Eyes: Normal Pupils: PERRL - Respiratory Respiratory status: No respiratory distress Chest status: Nontender Breath sounds: Normal Chest palpation: Normal - Cardiovascular Rhythm: Regular Heart sounds: Normal auscultation Murmur: No - Abdominal Inspection: Normal Distension: No distension Bowel sounds: Normal Tenderness: Nontender Organomegaly: No organomegaly - Back Back: Normal, Nontender - Extremities General upper extremity: Normal inspection, Nontender, Normal color, Normal ROM , Normal temperature General lower extremity: Normal inspection, Nontender, Normal color, Normal ROM , Normal temperature, Normal weight bearing. No: Ashwin's sign - Neurological Neuro grossly intact: Yes Cognition: Normal Orientation: AAOx4 Lan Coma Scale Eye Opening: Spontaneous [place] Coma Scale Verbal: Oriented [place] Coma Scale Motor: Obeys Commands Lan Coma Scale Total: 15 Speech: Normal Motor strength normal: LUE, RUE, LLE, RLE Sensory: Normal - Psychological Associated symptoms: Normal affect, Normal mood - Skin Skin Temperature: Warm Skin Moisture: Dry Skin Color: Normal Course - Re-evaluation Re-evalutation: 02/11/18 12:40 Potassium elevated at 5.8. Starting potassium lowering measures at this time. Head CT negative. Possible infection. Will discuss the case with Dr. Calix with nephrology. Will discuss the case with Dr. Gamez. Patient has been given Kayexalate and albuterol at this time. 02/11/18 12:[address] Calix. She is comfortable consulting. Did speak with Dr. Gamez. Will admit at this time. - Vital Signs Vital signs: Temp Pulse Resp BP Pulse Ox 98.1 F 82 13 163/65 H 98 02/11/18 09:15 02/11/18 09:42 02/11/18 11:01 02/11/18 11:01 02/11/18 11:01 - Laboratory Result Diagrams: 02/11/18 09:43 02/11/18 09:43 Laboratory results interpreted by me: 02/11/18 02/11/18 02/11/18 09:43 09:43 10:48 Hgb 10.1 L Hct 32.6 L MCH 26.5 L MCHC 31.0 L RDW 16.6 H Seg Neutrophils % 84.7 H Lymphocytes % 12.6 L Monocytes % 2.4 L Potassium 5.8 H Chloride 108 H BUN 23 H Glucose 316 H Alkaline Phosphatase 187 H Urine Protein 30 H Urine Glucose (UA) >=500 H Urine Ketones TRACE H Ur Leukocyte Esterase TRACE H - EKG Interpretation by Dc EKG shows normal: Sinus rhythm, Intervals, QRS Complexes, ST-T Waves [place]/QRS: Left axis deviation When compared to previous EKG there are: No significant change Discharge - Discharge Clinical Impression: Hyperkalemia, Dehydration Urinary tract infection Qualifiers: Urinary tract infection type: site unspecified Hematuria presence: without hematuria Qualified Code(s): N39.0 - Urinary tract infection, site not specified Condition: Good Disposition: ADMITTED INPATIENT Admitting Provider: Dequan Unit Admitted: Telemetry Referrals: DAMIAN GAMEZ MD [Primary Care Provider] - Follow up as needed
[2018-02-11 10:26] LABS: ABSOLUTE LYMPHOCYTES (AUTO) 0.7 10^3/uL (0.5-4.7); ABSOLUTE MONOCYTES (AUTO) 0.1 10^3/uL (0.1-1.4); ABSOLUTE NEUT (AUTO) 4.7 10^3/uL (1.7-8.2); BASOPHILS % (AUTO) 0.3 % (0-2); HEMATOCRIT 32.6 % (36.0-47.0); HEMOGLOBIN 10.1 g/dL (12.0-15.5); LYMPHOCYTES % (AUTO) 12.6 % (13-45); MEAN CORPUSCULAR HEMOGLOBIN 26.5 pg (27.0-33.4); MEAN CORPUSCULAR VOLUME 86 fl (80-97); MONOCYTES % (AUTO) 2.4 % (3-13); PLATELET COUNT 186 10^3/uL (150-450); RED BLOOD COUNT 3.81 10^6/uL (3.72-5.28); RED CELL DISTRIBUTION WIDTH 16.6 % (11.5-14.0); SEGMENTED NEUTROPHILS % (AUTO) 84.7 % (42-78); TOTAL CELLS COUNTED % (AUTO) 100 %; WHITE BLOOD COUNT 5.5 10^3/uL (4.0-10.5)
[2018-02-11 10:29] LABS: ALANINE AMINOTRANSFERASE 15 U/L (9-52); ALKALINE PHOSPHATASE 187 U/L (38-126); ASPARTATE AMINO TRANSFERASE 17 U/L (14-36); BILIRUBIN,DIRECT 0.3 mg/dL (0.0-0.4); BILIRUBIN,TOTAL 0.5 mg/dL (0.2-1.3); CREATINE KINASE 41 U/L (30-135)
[2018-02-11 10:35] LABS: CREATINE KINASE MB 0.45 ng/mL (<4.55)
[2018-02-11 10:42] LABS: TROPONIN I < 0.012 ng/mL
[2018-02-11 10:49] LABS: ALBUMIN 4.3 g/dL (3.5-5.0); ANION GAP 11 (5-19); BLOOD UREA NITROGEN 23 mg/dL (7-20); CALCIUM 9.5 mg/dL (8.4-10.2); CARBON DIOXIDE 22 mmol/L (22-30); CHLORIDE 108 mmol/L (98-107); GLUCOSE 316 mg/dL (75-110); POTASSIUM 5.8 mmol/L (3.6-5.0); SODIUM 141.4 mmol/L (137-145); TOTAL PROTEIN 7.3 g/dL (6.3-8.2)
--- NOTE | 2018-02-11 11:15 | RADIOLOGY REPORT (SQ) ---
EXAM DESCRIPTION: CT HEAD WITHOUT COMPLETED DATE/TIME: 02/11/2018 10:37 am REASON FOR STUDY: lower ext weakness COMPARISON: MRI brain 12/08/2017 CT brain 03/01/2015 TECHNIQUE: Axial images acquired through the brain without intravenous contrast. Images reviewed wi th bone, brain and subdural windows. Additional sagittal and coronal reconstructions were generated. Images stored on PACS. All CT scanners at this facility use dose modulation, iterative reconstruction, and/or weight based d osing when appropriate to reduce radiation dose to as low as reasonably achievable (ALARA). [facility]: Dose Right [facility]: CareDose [facility]: Dose Right [facility]: Teradose 4D [facility]: Keemotion RADIATION DOSE: CT Rad equipment meets quality standard of care and radiation dose reduction techniq ues were employed. CTDIvol: 53.2 mGy. DLP: 991 mGy-cm. mGy. LIMITATIONS: None. FINDINGS: VENTRICLES: Normal size and contour. CEREBRUM: No masses. No hemorrhage. No midline shift. No evidence for acute infarction. Normal gra y/white matter differentiation. No areas of low density in the white matter. CEREBELLUM: No masses. No hemorrhage. No alteration of density. No evidence for acute infarction. EXTRAAXIAL SPACES: No fluid collections. No masses. ORBITS AND GLOBE: No intra- or extraconal masses. Normal contour of globe without masses. CALVARIUM: No fracture. PARANASAL SINUSES: No fluid or mucosal thickening. SOFT TISSUES: No mass or hematoma. OTHER: No other significant finding. IMPRESSION: NORMAL BRAIN CT WITHOUT CONTRAST. EVIDENCE OF ACUTE STROKE: NO. COMMENT: Quality ID # [id number]: Final reports with documentation of one or more dose reduction techniques (e.g., Automated exposure control, adjustment of the mA and/or kV according to patient size, use of iterative reconstruction technique) TECHNICAL DOCUMENTATION: JOB ID: [id number] [employer]- All Rights Reserved Reading location - IP/workstation name: [email or web address]
--- NOTE | 2018-02-11 11:32 | EKG REPORT ---
SEVERITY:- OTHERWISE NORMAL ECG - SINUS RHYTHM BORDERLINE LEFT AXIS DEVIATION : Confirmed by: Cecilia Thompson MD 11-Feb-2018 11:31:55
[2018-02-11] MEDS ORDERED: ALBUTEROL SULFATE 0.083% NEB 2.5 MG/3 ML AMPUL NEB ONE (11:33)
[2018-02-11] MEDS ORDERED: SODIUM POLYSTYRENE SULFONATE 15 GM/60 ML PO ONE (11:33)
[2018-02-11 11:42] LABS: APPEARANCE,URINE SLIGHTLY-CLOUDY; BILIRUBIN,URINE NEGATIVE (NEGATIVE); COLOR,URINE YELLOW; GLUCOSE, URINE >=500 mg/dL (NEGATIVE); KETONES,URINE TRACE mg/dL (NEGATIVE); LEUKOCYTE ESTERASE,URINE TRACE (NEGATIVE); NITRITE,URINE NEGATIVE (NEGATIVE); PROTEIN,URINE 30 mg/dL (NEGATIVE); URINE SPECIFIC GRAVITY 1.013; UROBILINOGEN,URINE NEGATIVE mg/dL (<2.0)
[2018-02-11] MEDS ORDERED: CEFTRIAXONE 1 GM/D5W RTU 1 GM/50 ML RTUPB IV ONE (12:23)
[2018-02-11] MEDS ORDERED: CEFTRIAXONE SODIUM 1,000 MG in DEXTROSE 5%-WATER 50 ML IV ONE (12:50)
[2018-02-11] MEDS ORDERED: GLUCAGON,HUMAN RECOMB 1 MG INJ IM PRN (17:22)
[2018-02-11] MEDS ORDERED: DEXTROSE 50%-WATER 25 GM/50 ML DISP.SYRIN IV PRN ×2 (17:22)
[2018-02-11] MEDS ORDERED: DEXTROSE 40% GEL 15 GM TUBE PO PRN ×2 (17:22)
[2018-02-11] MEDS ORDERED: (PENDING PHARMACY ID) (Liraglutide [Victoza 2-Pak] 1.2 MG) SQ SCH (17:30)
[2018-02-11] MEDS ORDERED: (PENDING PHARMACY ID) (Mycophenolate Sodium 360 MG) PO SCH (17:30)
[2018-02-11] MEDS ORDERED: (PENDING PHARMACY ID) (Diltiazem Hcl [Diltiazem Hcl] 120 MG) PO SCH (17:30)
[2018-02-11 18:43] LABS: INTERNATIONAL RATION (INR) 1.03
[2018-02-11 18:44] LABS: PARTIAL THROMBOPLASTIN TIME 28.4 SEC (23.5-35.8)
[2018-02-11 18:56] LABS: ALANINE AMINOTRANSFERASE 15 U/L (9-52); ALBUMIN 3.8 g/dL (3.5-5.0); ALKALINE PHOSPHATASE 148 U/L (38-126); AMYLASE 55 U/L (30-110); ANION GAP 12 (5-19); ASPARTATE AMINO TRANSFERASE 17 U/L (14-36); BILIRUBIN,DIRECT 0.2 mg/dL (0.0-0.4); BILIRUBIN,TOTAL 0.3 mg/dL (0.2-1.3); BLOOD UREA NITROGEN 20 mg/dL (7-20); CALCIUM 9.2 mg/dL (8.4-10.2); CARBON DIOXIDE 20 mmol/L (22-30); CHLORIDE 110 mmol/L (98-107); GLUCOSE 307 mg/dL (75-110); PHOSPHORUS 3.9 mg/dL (2.5-4.5); POTASSIUM 5.2 mmol/L (3.6-5.0); SODIUM 141.7 mmol/L (137-145); TOTAL PROTEIN 6.8 g/dL (6.3-8.2)
[2018-02-11] MEDS: METOPROLOL TARTRATE 50 MG TABLET PO SCH (19:06)
[2018-02-11] MEDS: DILTIAZEM HCL 120 MG CAP.SR.24H PO SCH (19:06)
[2018-02-11] MEDS: ASPIRIN 81 MG TABLET, ENT COATED PO SCH (19:06)
[2018-02-11 19:07] LABS: CREATINE KINASE MB 0.32 ng/mL (<4.55)
[2018-02-11] MEDS: INSULIN LISPRO 100 UNIT/ML 3 ML VIAL SUBCUT PRN (19:07)
[2018-02-11 19:10] LABS: FREE T4 (FREE THYROXINE) 1.15 ng/dL (0.78-2.19)
[2018-02-11 19:13] LABS: TROPONIN I < 0.012 ng/mL
[2018-02-11] MEDS: FUROSEMIDE 20 MG TABLET PO SCH (19:17)
[2018-02-11 19:24] LABS: THYROID STIMULATING HORMONE 0.39 uIU/mL (0.47-4.68)
[2018-02-11] MEDS ORDERED: ENOXAPARIN SODIUM INJ 40 MG/0.4 ML DISP.SYRIN SUBCUT ONE (19:30)
--- NOTE | 2018-02-11 19:39 | PDOC H&P ---
History of Present Illness Admission Date/PCP: 02/11/18 14:06 DAMIAN GAMEZ MD History of Present Illness: MONIQUE CRUZ is a 62 year old female,She came to the emergency room for evaluation of generalized body weakness/muscle weakness she said she woke up she could not move ,she had episode of nausea and vomiting, in the emergency room she was evaluated CT head was done which was negative she was found to UTI ,was given a dose of Rocephin. I saw patient in the emergency room the etiology of this generalized muscle weakness is not clear. She was also found to have hyperkalemia, she had a dose of Kayexalate in the ER subsequent basic metabolic panel was normal, history of kidney transplant, diabetes mellitus Past Medical History Cardiac Medical History: Reports: Hyperlipidema, Hypertension, Heart Murmur Pulmonary Medical History: Reports: Sleep Apnea - CPAP Endocrine Medical History: Reports: Diabetes Mellitus Type 2 Renal/ Medical History: Reports: End Stage Renal Disease - prior to transplant GI Medical History: Musculoskeltal Medical History: Reports: Arthritis Hematology: Reports: Anemia Past Surgical History Past Surgical History: Reports: Cholecystectomy, Gastric Bypass Surgery, Hysterectomy, Orthopedic Surgery - rt knee 04/22, Vascular Surgery - Left upper arm AV fistula, Other - Left vitrectomy, left carpal tunnel release, gastric bypass 04/17/2011 Social History Lives with: Family Smoking Status: Never Smoker Frequency of Alcohol Use: None Hx Recreational Drug Use: No Hx Prescription Drug Abuse: No Family History Family History: Reviewed & Not Pertinent Parental Family History Reviewed: Yes Children Family History Reviewed: Yes Sibling(s) Family History Reviewed.: Yes Medication/Allergy Home Medications: Insulin Detemir [Levemir Flextouch] 18 units SUBCUT BID 08/08/14 Metoprolol Tartrate [Lopressor] 100 mg PO Q12 10/17/15 Tacrolimus [Prograf] 4 mg PO Q12 10/17/15 Amlodipine Besylate 5 mg PO QHS 04/15/17 Diltiazem HCl 120 mg PO DAILY 04/15/17 Mycophenolate Sodium [Myfortic 180 mg Tablet.dr] 360 mg PO Q12 04/15/17 Aspirin [Aspirin EC] 81 mg PO DAILY 02/11/18 Furosemide [Lasix 20 mg Tablet] 20 mg PO QAM 02/11/18 Insulin Aspart [Novolog Flexpen] 0 units IM .SLIDING SCALE 02/11/18 Liraglutide [Victoza 2-Chrsi] 1.2 mg SQ DAILY 02/11/18 Allergies/Adverse Reactions: No Known Allergies Allergy (Verified 08/02/17 11:31) Review of Systems Eyes: ABSENT: visual disturbances Ears: ABSENT: hearing changes Cardiovascular: ABSENT: chest pain, dyspnea on exertion, edema, orthropnea, palpitations Respiratory: ABSENT: cough, hemoptysis Gastrointestinal: ABSENT: abdominal pain, constipation, diarrhea, hematemesis, hematochezia, nausea, vomiting Genitourinary: ABSENT: dysuria, hematuria Musculoskeletal: ABSENT: joint swelling Integumentary: ABSENT: rash, wounds Neurological: PRESENT: weakness. ABSENT: abnormal gait, abnormal speech, confusion, dizziness, focal weakness, syncope Psychiatric: ABSENT: anxiety, depression, homidical ideation, suicidal ideation Endocrine: ABSENT: cold intolerance, heat intolerance, menstrual abnormalities, polydipsia, polyuria Hematologic/Lymphatic: ABSENT: easy bleeding, easy bruising, lymphadenopathy Physical Exam Vital Signs: Temp Pulse Resp BP Pulse Ox 96.5 F L 87 23 H 156/68 H 100 02/11/18 16:07 02/11/18 16:07 02/11/18 16:07 02/11/18 16:07 02/11/18 16:07 General appearance: PRESENT: no acute distress, well-developed, well-nourished Head exam: PRESENT: atraumatic, normocephalic Eye exam: PRESENT: conjunctiva pink, EOMI, PERRLA Ear exam: PRESENT: normal external ear exam Mouth exam: PRESENT: moist, tongue midline Neck exam: PRESENT: full ROM Respiratory exam: PRESENT: clear to auscultation brennan Cardiovascular exam: PRESENT: RRR, +S1, +S2 Pulses: PRESENT: normal dorsalis pedis pul, +2 pedal pulses bilateral Vascular exam: PRESENT: normal capillary refill GI/Abdominal exam: PRESENT: normal bowel sounds, soft Rectal exam: PRESENT: deferred Neurological exam: PRESENT: alert, awake, oriented to person, oriented to place , oriented to time, oriented to situation, CN II-XII grossly intact. ABSENT: motor sensory deficit Psychiatric exam: PRESENT: appropriate affect, normal mood Skin exam: PRESENT: dry, intact, warm Results Laboratory Results: 02/11/18 18:20 08/02/2102/11/18 02/11/18 18:20 18:20 18:20 Sodium 141.7 Potassium 5.2 H Chloride 110 H Carbon Dioxide 20 L Anion Gap 12 BUN 20 Creatinine 0.85 Est GFR ( Amer) > 60 Est GFR (Non-Af Amer) > 60 Glucose 307 H Calcium 9.2 Phosphorus 3.9 Magnesium 2.1 Total Bilirubin 0.3 AST 17 ALT 15 Alkaline Phosphatase 148 H Ammonia < 8.7 L Total Protein 6.8 Albumin 3.8 Amylase 55 Lipase 94.0 TSH 0.39 L Free T4 1.15 02/11/18 02/11/18 18:20 18:20 Creatine Kinase 37 CK-MB (CK-2) 0.32 Troponin I < 0.012 Impressions: Head CT 02/11/18 09:23 IMPRESSION: NORMAL BRAIN CT WITHOUT CONTRAST. EVIDENCE OF ACUTE STROKE: NO. Assessment & Plan - Diagnosis (1) Generalized muscle weakness Is this a current diagnosis for this admission?: Yes Plan: The etiology of the generalized weakness is not clear (2) Urinary tract infection Qualifiers: Urinary tract infection type: site unspecified Hematuria presence: without hematuria Qualified Code(s): N39.0 - Urinary tract infection, site not specified Is this a current diagnosis for this admission?: Yes Plan: Start IV antibiotic (3) Renal transplant recipient Is this a current diagnosis for this admission?: Yes (4) Type 2 diabetes mellitus Qualifiers: Diabetes mellitus keno terminal operator insulin use: with penitentiary use Diabetes mellitus complication status: with kidney complications Diabetes mellitus complication detail: with other kidney complication Qualified Code(s): E11.29 - Type 2 diabetes mellitus with other diabetic kidney complication; Z79.4 - supervisor intermediates (current) use of insulin; Z79.4 - assisted (current) use of insulin; Z79.4 - supervisor intermediates (current) use of insulin; Z79.4 - assisted (current) use of insulin Is this a current diagnosis for this admission?: Yes (5) Hyperkalemia Is this a current diagnosis for this admission?: Yes
[2018-02-11] MEDS: MYCOPHENOLATE SODIUM 180 MG PO SCH (22:36)
[2018-02-11] MEDS: AMLODIPINE BESYLATE 5 MG TABLET PO SCH (22:37)
[2018-02-11] MEDS: TACROLIMUS ANHYDROUS 1 MG CAPSULE PO SCH (22:38)
[2018-02-11] MEDS: INSULIN DETEMIR 100 UNIT/ML 3 ML PEN SUBCUT SCH (22:39)
[2018-02-12] MEDS: LIRAGLUTIDE SUBCUT SCH ×2 (00:34→09:47)
[2018-02-12 00:57] LABS: CREATINE KINASE MB 0.35 ng/mL (<4.55)
[2018-02-12 01:01] LABS: TROPONIN I < 0.012 ng/mL
[2018-02-12 01:07] LABS: APPEARANCE,URINE CLOUDY; BILIRUBIN,URINE NEGATIVE (NEGATIVE); COLOR,URINE STRAW; GLUCOSE, URINE 150 mg/dL (NEGATIVE); KETONES,URINE NEGATIVE (NEGATIVE); LEUKOCYTE ESTERASE,URINE LARGE (NEGATIVE); NITRITE,URINE NEGATIVE (NEGATIVE); PROTEIN,URINE 30 mg/dL (NEGATIVE); UROBILINOGEN,URINE NEGATIVE mg/dL (<2.0)
[2018-02-12 01:14] LABS: URINE AMPHETAMINES SCREEN NEGATIVE; URINE BARBITURATES SCREEN NEGATIVE; URINE BENZODIAZEPINES SCREEN NEGATIVE; URINE COCAINE SCREEN NEGATIVE; URINE MARIJUANA (THC) SCREEN NEGATIVE; URINE METHADONE SCREEN NEGATIVE; URINE PHENCYCLIDINE SCREEN NEGATIVE
[2018-02-12 07:08] LABS: ABSOLUTE LYMPHOCYTES (AUTO) 1.2 10^3/uL (0.5-4.7); ABSOLUTE MONOCYTES (AUTO) 0.4 10^3/uL (0.1-1.4); BASOPHILS % (AUTO) 0.6 % (0-2); EOSINOPHILS % (AUTO) 0.3 % (0-6); HEMATOCRIT 30.6 % (36.0-47.0); HEMOGLOBIN 9.9 g/dL (12.0-15.5); LYMPHOCYTES % (AUTO) 18.8 % (13-45); MEAN CORPUSCULAR HEMOGLOBIN 27.2 pg (27.0-33.4); MEAN CORPUSCULAR HGB CONC 32.3 g/dL (32.0-36.0); MEAN CORPUSCULAR VOLUME 84 fl (80-97); MONOCYTES % (AUTO) 5.7 % (3-13); PLATELET COUNT 179 10^3/uL (150-450); RED BLOOD COUNT 3.63 10^6/uL (3.72-5.28); RED CELL DISTRIBUTION WIDTH 16.3 % (11.5-14.0); SEGMENTED NEUTROPHILS % (AUTO) 74.6 % (42-78); TOTAL CELLS COUNTED % (AUTO) 100 %; WHITE BLOOD COUNT 6.6 10^3/uL (4.0-10.5)
[2018-02-12 07:24] LABS: ALANINE AMINOTRANSFERASE 21 U/L (9-52); ALBUMIN 3.6 g/dL (3.5-5.0); ALKALINE PHOSPHATASE 134 U/L (38-126); ANION GAP 11 (5-19); ASPARTATE AMINO TRANSFERASE 14 U/L (14-36); BILIRUBIN,DIRECT 0.2 mg/dL (0.0-0.4); BILIRUBIN,TOTAL 0.3 mg/dL (0.2-1.3); BLOOD UREA NITROGEN 19 mg/dL (7-20); CALCIUM 9.2 mg/dL (8.4-10.2); CARBON DIOXIDE 23 mmol/L (22-30); CHLORIDE 109 mmol/L (98-107); CREATINE KINASE 37 U/L (30-135); GLUCOSE 113 mg/dL (75-110); POTASSIUM 4.5 mmol/L (3.6-5.0); SODIUM 143.3 mmol/L (137-145); TOTAL PROTEIN 6.4 g/dL (6.3-8.2); TRIGLYCERIDES 95 mg/dL (<150)
[2018-02-12 07:34] LABS: CREATINE KINASE MB 0.29 ng/mL (<4.55)
[2018-02-12 07:35] LABS: DIRECT LDL 86 mg/dL (<100)
[2018-02-12 07:39] LABS: TROPONIN I < 0.012 ng/mL
[2018-02-12] MEDS: FUROSEMIDE 20 MG TABLET PO SCH (08:50)
[2018-02-12] MEDS: METOPROLOL TARTRATE 50 MG TABLET PO SCH ×2 (09:44→22:44)
[2018-02-12] MEDS: TACROLIMUS ANHYDROUS 1 MG CAPSULE PO SCH ×2 (09:46→22:46)
[2018-02-12] MEDS: ASPIRIN 81 MG TABLET, ENT COATED PO SCH (09:46)
[2018-02-12] MEDS: MYCOPHENOLATE SODIUM 180 MG PO SCH ×2 (09:46→22:45)
[2018-02-12] MEDS: DILTIAZEM HCL 120 MG CAP.SR.24H PO SCH (09:46)
[2018-02-12] MEDS: ENOXAPARIN SODIUM INJ 40 MG/0.4 ML DISP.SYRIN SUBCUT SCH (09:47)
[2018-02-12] MEDS: INSULIN DETEMIR 100 UNIT/ML 3 ML PEN SUBCUT SCH ×2 (09:48→22:37)
[2018-02-12] MEDS ORDERED: CEFTRIAXONE 1 GM/D5W RTU 1 GM/50 ML RTUPB IV SCH (19:00)
--- NOTE | 2018-02-12 19:26 | PDOC CONSULTATION ---
Consultation Consult Date: 02/12/18 Attending physician:: DAMIAN GAMEZ Consult reason:: I was asked by Dr. Gamez to see the patient because of hyperkalemia in a patient with kidney transplant. History of Present Illness Admission Date/PCP: 02/11/18 14:06 DAMIAN GAMEZ MD History of Present Illness: MONIQUE CRUZ is a 62 year old female known to me with history of donor kidney transplant in September 2015 due to end-stage renal disease previously on hemodialysis, hypertension, diabetes mellitus type 2, and sleep apnea who presented to the emergency room yesterday because onset of generalized weakness associated with nausea and vomiting. Patient said that about 2 nights ago at around 11 PM she was trying to get out of bed and she could not move for hours so she needed to call her granddaughter to help her move a little bit. When she is finally able to move she had her granddaughter help her to the bathroom and she started having nausea, vomiting and diarrhea. She denies any dizziness or lightheadedness although she does have her chronic balance issues. She also complains of some headache and neck pains. She denies any fever no chills. Her symptoms persisted yesterday so she presented to the emergency room. She denies any significant precipitating factors or any eating anything unusual to her. In the emergency room patient was noted to have hyperkalemia with potassium of 5.8 and she was given Kayexalate and albuterol and started with IV fluids. Her kidney function is really within normal limits. She had a CT scan which was negative. Urine culture was sent and today it was going gram-negative rods. She was initially given a dose of IV ceftriaxone yesterday. Today the patient said she is able to move and at least go to the bathroom in her room. She still a bit nauseated somewhat but she ate a good dinner. She denies any other complaints today. 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 Endocrine Medical History: Reports: Diabetes Mellitus Type 2 Complications of Diabetes: Reports: Nephropathy, Retinopathy Renal/ Medical History: Reports: End Stage Renal Disease - prior to transplant , Renal Transplant GI Medical History: Musculoskeltal Medical History: Reports: Arthritis, Other - Chronic low back pain Hematology Medical History: Reports Anemia Past Surgical History Past Surgical History: Reports: Cholecystectomy, Dialysis Access Surgery AVF - Left upper arm, Gastric Bypass Surgery - April 17, 2011, Hysterectomy, Orthopedic Surgery - rt knee 04/22, Other - Left vitrectomy, left carpal tunnel release Social History Information Source: Patient, H Records Lives with: Family Smoking Status: Never Smoker Frequency of Alcohol Use: None Hx Recreational Drug Use: No Hx Prescription Drug Abuse: No - Advance Directive Resuscitation Status: Full Code Family History Family History: Reviewed & Not Pertinent Parental Family History Reviewed: Yes Children Family History Reviewed: Unknown Sibling(s) Family History Reviewed.: Unknown Medication/Allergy Home Medications: Insulin Detemir [Levemir Flextouch] 18 units SUBCUT BID 08/08/14 Metoprolol Tartrate [Lopressor] 100 mg PO Q12 10/17/15 Tacrolimus [Prograf] 4 mg PO Q12 10/17/15 Amlodipine Besylate 5 mg PO QHS 04/15/17 Diltiazem HCl 120 mg PO DAILY 04/15/17 Mycophenolate Sodium [Myfortic 180 mg Tablet.dr] 360 mg PO Q12 04/15/17 Aspirin [Aspirin EC] 81 mg PO DAILY 02/11/18 Furosemide [Lasix 20 mg Tablet] 20 mg PO QAM 02/11/18 Insulin Aspart [Novolog Flexpen] 0 units IM .SLIDING SCALE 02/11/18 Liraglutide [Victoza 2-Chris] 1.2 mg SQ DAILY 02/11/18 Allergies/Adverse Reactions: No Known Allergies Allergy (Verified 08/02/17 11:31) Review of Systems All systems: reviewed and no additional remarkable complaints except as stated Review of Systems: Constitutional: ABSENT: chills, fatigue, fever(s), weight gain, weight loss; admits headache Eyes: ABSENT: visual disturbances Ears: ABSENT: hearing changes Cardiovascular: ABSENT: chest pain, dyspnea on exertion, edema, orthropnea, palpitations Respiratory: ABSENT: cough, dyspnea, hemoptysis Gastrointestinal: ABSENT: abdominal pain, constipation, hematemesis, hematochezia; admits nausea, vomiting, and diarrhea Genitourinary: ABSENT: dysuria, hematuria Musculoskeletal: ABSENT: joint swelling Integumentary: ABSENT: rash, wounds Neurological: ABSENT: abnormal gait, abnormal speech, confusion, dizziness, focal weakness, numbness, syncope; admits generalized weakness per history Psychiatric: ABSENT: anxiety, depression Endocrine: ABSENT: Heat intolerance, polydipsia, polyuria; she has cold intolerance Hematologic/Lymphatic: ABSENT: easy bleeding, easy bruising, lymphadenopathy Physical Exam Vital Signs: Temp Pulse Resp BP Pulse Ox 98.5 F 80 14 134/55 H 95 02/12/18 15:59 02/12/18 15:59 02/12/18 15:59 02/12/18 15:59 02/12/18 15:59 Intake & Output 02/11/18 02/12/18 02/13/18 06:59 06:59 06:59 Intake Total 422 Output Total 800 250 Balance -800 172 Weight 59.2 kg Exam: General appearance: no acute distress, cooperative, well-developed, well- nourished Head exam: PRESENT: atraumatic, normocephalic Eye exam: PRESENT: Conjunctiva [place], EOMI, PERRLA. ABSENT: conjunctival injection, scleral icterus Mouth exam: PRESENT: moist, neck supple, tongue midline Neck exam: PRESENT: full ROM. ABSENT: carotid bruit, JVD, lymphadenopathy, thyromegaly Respiratory exam: PRESENT: Diminished butclear to auscultation bilaterally. ABSENT: rales, rhonchi, stridor, wheezes Cardiovascular exam: PRESENT: RRR, +S1, +S2. ABSENT: systolic murmur Pulses: PRESENT: normal radial pulses, normal dorsalis pedis pulses GI/Abdominal exam: PRESENT: normal bowel sounds, soft. Right kidney transplant graft without any tenderness or bruit ABSENT: guarding, mass, tenderness Rectal exam: deferred Extremities exam: PRESENT: full ROM. ABSENT: calf tenderness, pedal edema Musculoskeletal: PRESENT: full ROM. ABSENT: deformity Neurological exam: PRESENT: alert, Awake, Oriented to person, Oriented to place , Oriented to time, reflexes normal, CN II-XII grossly intact. ABSENT: motor sensory deficit Psychiatric exam: PRESENT: appropriate affect, normal mood. ABSENT: homicidal ideation, suicidal ideation Skin exam: PRESENT: intact, dry, warm. ABSENT: rash Results Laboratory Results: 02/12/18 06:51 02/12/18 06:51 02/11/18 02/11/18 02/11/18 18:20 18:20 22:15 WBC RBC Hgb Hct MCV MCH MCHC RDW Plt Count Seg Neutrophils % Lymphocytes % Monocytes % Eosinophils % Basophils % Absolute Neutrophils Absolute Lymphocytes Absolute Monocytes Absolute Eosinophils Absolute Basophils Sodium 141.7 Potassium 5.2 H Chloride 110 H Carbon Dioxide 20 L Anion Gap 12 BUN 20 Creatinine 0.85 Est GFR ( Amer) > 60 Est GFR (Non-Af Amer) > 60 Glucose 307 H Calcium 9.2 Phosphorus 3.9 Magnesium 2.1 Total Bilirubin 0.3 AST 17 ALT 15 Alkaline Phosphatase 148 H Total Protein 6.8 Albumin 3.8 Triglycerides Cholesterol LDL Cholesterol Direct VLDL Cholesterol HDL Cholesterol Amylase 55 Lipase 94.0 TSH 0.39 L Free T4 1.15 Urine Color STRAW Urine Appearance CLOUDY Urine pH 5.0 Ur Specific [place] 1.010 Urine Protein 30 H Urine Glucose (UA) 150 H Urine Ketones NEGATIVE Urine Blood SMALL H Urine Nitrite NEGATIVE Ur Leukocyte Esterase LARGE H Urine WBC (Auto) >182 Urine RBC (Auto) 4 02/12/18 02/12/18 06:51 06:51 WBC 6.6 RBC 3.63 L Hgb 9.9 L Hct 30.6 L MCV 84 MCH 27.2 MCHC 32.3 RDW 16.3 H Plt Count 179 Seg Neutrophils % 74.6 Lymphocytes % 18.8 Monocytes % 5.7 Eosinophils % 0.3 Basophils % 0.6 Absolute Neutrophils 5.0 Absolute Lymphocytes 1.2 Absolute Monocytes 0.4 Absolute Eosinophils 0.0 Absolute Basophils 0.0 Sodium 143.3 Potassium 4.5 Chloride 109 H Carbon Dioxide 23 Anion Gap 11 BUN 19 Creatinine 0.90 Est GFR ( Amer) > 60 Est GFR (Non-Af Amer) > 60 Glucose 113 H Calcium 9.2 Phosphorus Magnesium Total Bilirubin 0.3 AST 14 ALT 21 Alkaline Phosphatase 134 H Total Protein 6.4 Albumin 3.6 Triglycerides 95 Cholesterol 179.10 LDL Cholesterol Direct 86 VLDL Cholesterol 19.0 HDL Cholesterol 48 Amylase Lipase TSH Free T4 Urine Color Urine Appearance Urine pH Ur Specific [place] Urine Protein Urine Glucose (UA) Urine Ketones Urine Blood Urine Nitrite Ur Leukocyte Esterase Urine WBC (Auto) Urine RBC (Auto) 02/11/18 02/11/18 02/12/18 18:20 18:20 00:23 Creatine Kinase 37 37 CK-MB (CK-2) 0.32 Troponin I < 0.012 02/12/18 02/12/18 02/12/18 00:23 06:51 06:51 Creatine Kinase 37 CK-MB (CK-2) 0.35 0.29 Troponin I < 0.012 < 0.012 Impressions: Head CT 02/11/18 09:23 IMPRESSION: NORMAL BRAIN CT WITHOUT CONTRAST. EVIDENCE OF ACUTE STROKE: NO. Assessment & Plan - Diagnosis (1) Episode of generalized weakness Is this a current diagnosis for this admission?: Yes Plan: Etiology uncertain. Differential diagnosis could be due to urinary tract infection, atonic seizure, or any myopathic syndromes. Her electrolytes were within normal limits except for mild hyperkalemia. On the contrary hypokalemia can produce symptoms like this but patient has the opposite. Further workup may be needed as an outpatient. Agree with Neurology referral as an outpatient. (2) Hyperkalemia Is this a current diagnosis for this admission?: Yes Plan: Patient has tendency to have mild hyperkalemia even in the past post kidney transplant. Currently it is resolved. (3) Renal transplant recipient Is this a current diagnosis for this admission?: Yes (4) Urinary tract infection Qualifiers: Urinary tract infection type: site unspecified Hematuria presence: without hematuria Qualified Code(s): N39.0 - Urinary tract infection, site not specified Is this a current diagnosis for this admission?: Yes Plan: Due to Gram negative rods. Continue ceftriaxone IV daily while here in the hospital. Follow-up urine culture results. (5) Anemia Qualifiers: Anemia type: other cause Is this a current diagnosis for this admission?: Yes (6) Chronic low back pain Is this a current diagnosis for this admission?: Yes (7) Hypertension Qualifiers: Hypertension type: essential hypertension Qualified Code(s): I10 - Essential (primary) hypertension Is this a current diagnosis for this admission?: Yes (8) Type 2 diabetes mellitus Is this a current diagnosis for this admission?: Yes - Notes Notes: Thank you very much for this consultation. Discussed the case with Dr. Gamez. - Time Time Spent: 50 to 70 Minutes
--- NOTE | 2018-02-12 21:50 | PDOC PROGRESS REPORT ---
Subjective Progress Note for:: 02/12/18 Subjective:: Patient was seen by the bedside she has E. coli UTI on IV antibiotic the bacteria is resistant to fluoroquinolones Reason For Visit: GENERALIZED WEAKNESS,HYPERKALEMIA,S/P KIDNEY Physical Exam Vital Signs: Temp Pulse Resp BP Pulse Ox 98.7 F 85 20 155/53 H 96 02/12/18 19:17 02/12/18 19:17 02/12/18 19:17 02/12/18 19:17 02/12/18 19:17 Intake & Output 02/11/18 02/12/18 02/13/18 06:59 06:59 06:59 Intake Total 422 Output Total 800 250 Balance -800 172 Weight 59.2 kg General appearance: PRESENT: no acute distress, well-developed, well-nourished Head exam: PRESENT: atraumatic, normocephalic Eye exam: PRESENT: conjunctiva pink, EOMI, PERRLA. ABSENT: scleral icterus Ear exam: PRESENT: normal external ear exam Mouth exam: PRESENT: moist, tongue midline Neck exam: PRESENT: full ROM Respiratory exam: PRESENT: clear to auscultation [place]rennan Cardiovascular exam: PRESENT: RRR, +S1, +S2 Pulses: PRESENT: normal dorsalis pedis pul, +2 pedal pulses bilateral Vascular exam: PRESENT: normal capillary refill GI/Abdominal exam: PRESENT: normal bowel sounds, soft Rectal exam: PRESENT: deferred Neurological exam: PRESENT: alert, awake, oriented to person, oriented to place , oriented to time, oriented to situation, CN II-XII grossly intact Psychiatric exam: PRESENT: appropriate affect, normal mood Skin exam: PRESENT: dry, intact, warm. ABSENT: cyanosis, rash Results Laboratory Results: 02/12/18 06:51 02/12/18 06:51 02/11/18 02/12/18 02/12/18 22:15 06:51 06:51 WBC 6.6 RBC 3.63 L Hgb 9.9 L Hct 30.6 L MCV 84 MCH 27.2 MCHC 32.3 RDW 16.3 H Plt Count 179 Seg Neutrophils % 74.6 Lymphocytes % 18.8 Monocytes % 5.7 Eosinophils % 0.3 Basophils % 0.6 Absolute Neutrophils 5.0 Absolute Lymphocytes 1.2 Absolute Monocytes 0.4 Absolute Eosinophils 0.0 Absolute Basophils 0.0 Sodium 143.3 Potassium 4.5 Chloride 109 H Carbon Dioxide 23 Anion Gap 11 BUN 19 Creatinine 0.90 Est GFR ( Amer) > 60 Est GFR (Non-Af Amer) > 60 Glucose 113 H Calcium 9.2 Total Bilirubin 0.3 AST 14 ALT 21 Alkaline Phosphatase 134 H Total Protein 6.4 Albumin 3.6 Triglycerides 95 Cholesterol 179.10 LDL Cholesterol Direct 86 VLDL Cholesterol 19.0 HDL Cholesterol 48 Urine Color STRAW Urine Appearance CLOUDY Urine pH 5.0 Ur Specific [place] 1.010 Urine Protein 30 H Urine Glucose (UA) 150 H Urine Ketones NEGATIVE Urine Blood SMALL H Urine Nitrite NEGATIVE Ur Leukocyte Esterase LARGE H Urine WBC (Auto) >182 Urine RBC (Auto) 4 02/11/18 02/11/18 02/12/18 18:20 18:20 00:23 Creatine Kinase 37 37 CK-MB (CK-2) 0.32 Troponin I < 0.012 02/12/18 02/12/18 02/12/18 00:23 06:51 06:51 Creatine Kinase 37 CK-MB (CK-2) 0.35 0.29 Troponin I < 0.012 < 0.012 Impressions: Head CT 02/11/18 09:23 IMPRESSION: NORMAL BRAIN CT WITHOUT CONTRAST. EVIDENCE OF ACUTE STROKE: NO. Assessment & Plan - Diagnosis (1) Generalized muscle weakness Is this a current diagnosis for this admission?: Yes (2) Urinary tract infection Qualifiers: Urinary tract infection type: site unspecified Hematuria presence: without hematuria Qualified Code(s): N39.0 - Urinary tract infection, site not specified Is this a current diagnosis for this admission?: Yes (3) Renal transplant recipient Is this a current diagnosis for this admission?: Yes (4) Type 2 diabetes mellitus Qualifiers: Diabetes mellitus buttermaker continuous churn insulin use: with skilled nursing use Diabetes mellitus complication status: with kidney complications Diabetes mellitus complication detail: with other kidney complication Qualified Code(s): E11.29 - Type 2 diabetes mellitus with other diabetic kidney complication; Z79.4 - joint terminal attack controller (current) use of insulin; Z79.4 - alf (current) use of insulin; Z79.4 - alf (current) use of insulin; Z79.4 - joint terminal attack controller (current) use of insulin Is this a current diagnosis for this admission?: Yes (5) Hyperkalemia Is this a current diagnosis for this admission?: Yes (6) E. coli UTI Is this a current diagnosis for this admission?: Yes
[2018-02-12] MEDS ORDERED: CEFTRIAXONE SODIUM 1,000 MG in NORMAL SALINE 50 ML IV SCH (22:00)
[2018-02-12] MEDS ORDERED: CEFTRIAXONE SODIUM 1,000 MG in DEXTROSE 5%-WATER 50 ML IV SCH (22:00)
[2018-02-12] MEDS: AMLODIPINE BESYLATE 5 MG TABLET PO SCH (22:44)
[2018-02-13] MEDS ORDERED: ACETAMINOPHEN 325 MG TABLET ONE (04:07)
[2018-02-13] MEDS ORDERED: ACETAMINOPHEN 325 MG TABLET PO PRN (04:11)
[2018-02-13 06:49] LABS: ABSOLUTE EOSINOPHILS # (AUTO) 0.1 10^3/uL (0.0-0.6); ABSOLUTE LYMPHOCYTES (AUTO) 1.4 10^3/uL (0.5-4.7); ABSOLUTE MONOCYTES (AUTO) 0.3 10^3/uL (0.1-1.4); ABSOLUTE NEUT (AUTO) 2.8 10^3/uL (1.7-8.2); BASOPHILS % (AUTO) 0.4 % (0-2); EOSINOPHILS % (AUTO) 1.2 % (0-6); HEMOGLOBIN 9.6 g/dL (12.0-15.5); LYMPHOCYTES % (AUTO) 31.1 % (13-45); MEAN CORPUSCULAR HEMOGLOBIN 26.9 pg (27.0-33.4); MEAN CORPUSCULAR HGB CONC 31.9 g/dL (32.0-36.0); MEAN CORPUSCULAR VOLUME 85 fl (80-97); MONOCYTES % (AUTO) 6.7 % (3-13); PLATELET COUNT 174 10^3/uL (150-450); RED BLOOD COUNT 3.56 10^6/uL (3.72-5.28); SEGMENTED NEUTROPHILS % (AUTO) 60.6 % (42-78); TOTAL CELLS COUNTED % (AUTO) 100 %; WHITE BLOOD COUNT 4.5 10^3/uL (4.0-10.5)
[2018-02-13] MEDS: FUROSEMIDE 20 MG TABLET PO SCH (08:59)
[2018-02-13] MEDS: TACROLIMUS ANHYDROUS 1 MG CAPSULE PO SCH (10:59)
[2018-02-13] MEDS: MYCOPHENOLATE SODIUM 180 MG PO SCH (11:00)
[2018-02-13] MEDS: METOPROLOL TARTRATE 50 MG TABLET PO SCH (11:00)
[2018-02-13] MEDS: ASPIRIN 81 MG TABLET, ENT COATED PO SCH (11:00)
[2018-02-13] MEDS: DILTIAZEM HCL 120 MG CAP.SR.24H PO SCH (11:00)
[2018-02-13] MEDS: ENOXAPARIN SODIUM INJ 40 MG/0.4 ML DISP.SYRIN SUBCUT SCH (11:02)
[2018-02-13] MEDS: INSULIN DETEMIR 100 UNIT/ML 3 ML PEN SUBCUT SCH (11:03)
[2018-02-13] MEDS: INSULIN LISPRO 100 UNIT/ML 3 ML VIAL SUBCUT PRN ×2 (12:27→16:24)
[2018-02-13] MEDS: LIRAGLUTIDE SUBCUT SCH (16:27)
--- NOTE | 2018-02-13 17:17 | PDOC DISCHARGE SUMMARY ---
General - Admit/Disc Date/PCP Admission Date/Primary Care Provider: 02/11/18 14:06 DAMIAN GAMEZ MD Discharge Date: 02/13/18 - Discharge Diagnosis (1) Generalized muscle weakness Is this a current diagnosis for this admission?: Yes (2) Urinary tract infection Is this a current diagnosis for this admission?: Yes (3) Renal transplant recipient Is this a current diagnosis for this admission?: Yes (4) Type 2 diabetes mellitus Is this a current diagnosis for this admission?: Yes (5) Hyperkalemia Is this a current diagnosis for this admission?: Yes - Additional Information Resuscitation Status: Full Code Prescriptions: Nitrofurantoin Monohyd/M-Cryst [Macrobid 100 mg Capsule] 100 mg PO BID #14 capsule Home Medications: Insulin Detemir [Levemir Flextouch] 18 units SUBCUT BID 08/08/14 Metoprolol Tartrate [Lopressor] 100 mg PO Q12 10/17/15 Tacrolimus [Prograf] 4 mg PO Q12 10/17/15 Amlodipine Besylate 5 mg PO QHS 04/15/17 Diltiazem HCl 120 mg PO DAILY 04/15/17 Mycophenolate Sodium [Myfortic 180 mg Tablet.dr] 360 mg PO Q12 04/15/17 Aspirin [Aspirin EC] 81 mg PO DAILY 02/11/18 Furosemide [Lasix 20 mg Tablet] 20 mg PO QAM 02/11/18 Insulin Aspart [Novolog Flexpen] 0 units IM .SLIDING SCALE 02/11/18 Liraglutide [Victoza 2-Chris] 1.2 mg SQ DAILY 02/11/18 Nitrofurantoin Monohyd/M-Cryst [Macrobid 100 mg Capsule] 100 mg PO BID #14 capsule 02/13/18 History of Present Illness History of Present Illness: MONIQUE CRUZ is a 62 year old female,She came to the emergency room for evaluation of generalized body weakness/muscle weakness she said she woke up she could not move ,she had episode of nausea and vomiting, in the emergency room she was evaluated CT head was done which was negative she was found to UTI ,was given a dose of Rocephin. I saw patient in the emergency room the etiology of this generalized muscle weakness is not clear. She was also found to have hyperkalemia, she had a dose of Kayexalate in the ER subsequent basic metabolic panel was normal, history of kidney transplant, diabetes mellitus Hospital Course Hospital Course: Patient was admitted for the management of generalized muscle weakness of unknown etiology, the urine culture grew E. coli sensitive to ceftriaxone, resistant to fluoroquinolones, she was treated with IV ceftriaxone patient is much better she regained some of her muscle power this suggest that her symptoms is most likely related to UTI Physical Exam Vital Signs: Temp Pulse Resp BP Pulse Ox 98.1 F 88 20 124/49 L 97 02/13/18 15:42 02/13/18 15:42 02/13/18 15:42 02/13/18 15:42 02/13/18 15:42 Intake & Output 02/12/18 02/13/18 02/14/18 06:59 06:59 06:59 Intake Total 772 418 Output Total 800 250 500 Balance -800 522 -82 Weight 59.2 kg 60.7 kg General appearance: PRESENT: no acute distress, well-developed, well-nourished Head exam: PRESENT: atraumatic, normocephalic Eye exam: PRESENT: conjunctiva pink, EOMI, PERRLA. ABSENT: scleral icterus Ear exam: PRESENT: normal external ear exam Mouth exam: PRESENT: moist, tongue midline Neck exam: PRESENT: full ROM Respiratory exam: PRESENT: clear to auscultation brennan Cardiovascular exam: PRESENT: RRR, +S1, +S2 Pulses: PRESENT: normal dorsalis pedis pul, +2 pedal pulses bilateral Vascular exam: PRESENT: normal capillary refill GI/Abdominal exam: PRESENT: normal bowel sounds, soft Rectal exam: PRESENT: deferred Neurological exam: PRESENT: alert, awake, oriented to person, oriented to place , oriented to time, oriented to situation, CN II-XII grossly intact Psychiatric exam: PRESENT: appropriate affect, normal mood Skin exam: PRESENT: dry, intact, warm Results Laboratory Results: 02/13/18 06:22 02/12/18 06:51 02/13/18 06:22 WBC 4.5 RBC 3.56 L Hgb 9.6 L Hct 30.0 L MCV 85 MCH 26.9 L MCHC 31.9 L RDW 16.0 H Plt Count 174 Seg Neutrophils % 60.6 Lymphocytes % 31.1 Monocytes % 6.7 Eosinophils % 1.2 Basophils % 0.4 Absolute Neutrophils 2.8 Absolute Lymphocytes 1.4 Absolute Monocytes 0.3 Absolute Eosinophils 0.1 Absolute Basophils 0.0 02/11/18 02/11/18 02/12/18 18:20 18:20 00:23 Creatine Kinase 37 37 CK-MB (CK-2) 0.32 Troponin I < 0.012 02/12/18 02/12/18 02/12/18 00:23 06:51 06:51 Creatine Kinase 37 CK-MB (CK-2) 0.35 0.29 Troponin I < 0.012 < 0.012 Impressions: Head CT 02/11/18 09:23 IMPRESSION: NORMAL BRAIN CT WITHOUT CONTRAST. EVIDENCE OF ACUTE STROKE: NO. Qualifiers - * PATIENT BEING DISCHARGED WITH ANY OF THE FOLLOWING DIAGNOSIS: No
[2018-02-13 17:48] VITALS: BP 151/50
== END 2018-02-13 19:04 | disposition home or self-care (01) | DRG 690 ==
LOC: ER 08:51 → EH 14:06 → INTOOBSV 14:06 → UNDOADMOB 14:06 → EH 20:11 → 3S 20:11 → EH 02-13 14:31 → OBSVTOIN 02-13 14:31
PROVIDERS: ADMIT Internal Medicine; ATTEND Internal Medicine
DX: N39.0 Urinary tract infection, site not specified (principal); Z94.0 Kidney transplant status; I10 Essential (primary) hypertension; E87.5 Hyperkalemia; E78.5 Hyperlipidemia, unspecified; E86.0 Dehydration; E11.319 Type 2 diabetes mellitus with unspecified diabetic retinopathy without macular edema; D64.9 Anemia, unspecified; M54.5 Low back pain; B96.20 Unspecified Escherichia coli [E. coli] as the cause of diseases classified elsewhere; Z98.84 Bariatric surgery status; Z79.82 Long term (current) use of aspirin; Z79.4 Long term (current) use of insulin; Z79.899 Other long term (current) drug therapy
CPT/HCPCS: 36415; 70450; 80053; 80061; 80307; 81001; 82140; 82150; 82550; 82553; 82962; 83036; 83690; 83735; 84100; 84439; 84443; 84484; 85025; 85610; 85730; 87040; 87086; 87088; 87186; 93005; 93010; 94640; 96374; 99285; G0378; G8978-GP; G8979-GP; G8987-GO; G8988-GO; G8989-GO; J0696; J1650; J1815; J2405; J7030; J7507

== ENCOUNTER 2018-07-03 12:43 | Emergency (ER) | payer OTHER, MEDICARE ==
[2018-07-03] MEDS ORDERED: NORMAL SALINE 1000 ML 1,000 ML IV ONE (13:30)
--- NOTE | 2018-07-03 13:33 | ER Document Report ---
ED GI/ - General Chief Complaint: Flank Pain Stated Complaint: FLANK PAIN Time Seen by Provider: 07/03/18 13:27 Information source: Patient Notes: Patient is a 62-year-old female with past medical history as recorded including status post kidney transplant 2 years ago secondary to being on end-stage renal disease on dialysis, with the onset last night of some intermittent "sharp" abdominal discomfort just right of the umbilicus to the lower abdomen. She is afraid it is coming from her transplanted kidney. She has had no fevers, or vomiting. She had multiple bouts of nonbloody diarrhea yesterday with 2 bouts today. No recent antibiotics. No recent trips or travel. Patient states she has been compliant with her immunosuppressive medications. TRAVEL OUTSIDE OF THE [place] IN LAST 30 DAYS: No - HPI Patient complains to provider of: Other - See above Onset: Other - See above Timing/Duration: Gradual Quality of pain: Other - See above Severity at maximum: Mild Severity in ED: None Pain Level: Denies Location: Other - See above Associated symptoms: Other - See above Exacerbated by: Denies Relieved by: Denies Similar symptoms previously: Yes Recently seen / treated by doctor: No - Related Data Allergies/Adverse Reactions: No Known Allergies Allergy (Verified 07/03/18 12:46) Past Medical History - Social History Smoking Status: Never Smoker Frequency of alcohol use: None Drug Abuse: None Family History: Reviewed & Not Pertinent Patient has suicidal ideation: No Patient has homicidal ideation: No - Past Medical History Cardiac Medical History: Reports: Hx Hypercholesterolemia, Hx Hypertension, Hx Heart Murmur Denies: Hx Atrial Fibrillation, Hx Congestive Heart Failure, Hx Coronary Artery Disease, Hx Heart Attack, Hx Peripheral Vascular Disease, Hx Pulmonary Embolism Pulmonary Medical History: Reports: Hx COPD, Hx Sleep Apnea - CPAP Denies: Hx Asthma, Hx Bronchitis, Hx Pneumonia, Hx Respiratory Failure, Hx Tuberculosis Neurological Medical History: Denies: Hx Cerebrovascular Accident, Hx Seizures Endocrine Medical History: Reports: Hx Diabetes Mellitus Type 1, Hx Diabetes Mellitus Type 2. Denies: Hx Graves' Disease, Hx Hyperthyroidism, Hx Hypothyroidism Renal/ Medical History: Reports: Hx End Stage Renal Disease - prior to transplant, Hx Hemodialysis. Denies: Hx Kidney Stones, Hx Peritoneal Dialysis Malignancy Medical History: Denies: Hx Lung Cancer GI Medical History: Musculoskeletal Medical History: Reports Hx Arthritis, Denies Hx Fibromyalgia, Denies Hx Multiple Sclerosis, Denies Hx Muscular Dystrophy Psychiatric Medical History: Denies: Hx Dementia Traumatic Medical History: Denies: Hx Fractures Past Surgical History: Reports: Hx Abdominal Surgery - kidney transplant 2016, Hx Cholecystectomy, Hx Gastric Bypass Surgery, Hx Gynecologic Surgery - hysterectomy, Hx Hysterectomy, Hx Kidney (Renal Surgery) - right kidney transplant in 2016, Hx Orthopedic Surgery - rt knee 04/22, Hx Vascular Surgery - Left upper arm AV fistula, Other - Left vitrectomy, left carpal tunnel release, gastric bypass 04/17/2011. Denies: Hx Appendectomy, Hx Bowel Surgery, Hx Section, Hx Coronary Artery Bypass Graft, Hx Herniorrhaphy, Hx Mastectomy, Hx Pacemaker, Hx Tonsillectomy, Hx Tubal Ligation - Immunizations Immunizations up to date: Yes Hx Diphtheria, Pertussis, Tetanus Vaccination: Yes Hx Pneumococcal Vaccination: 03/07/14 Review of Systems - Review of Systems Constitutional: denies: Fever EENT: denies: Eye discharge, Nose discharge Respiratory: denies: Short of breath Gastrointestinal: denies: Vomiting Genitourinary: denies: Dysuria Musculoskeletal: denies: Leg swelling Skin: Other - no hives. denies: Rash Neurological/Psychological: Other - no slurred speech -: Yes All other systems reviewed and negative Physical Exam - Vital signs Vitals: Temp Pulse Resp BP Pulse Ox 98.6 F 77 18 151/61 H 97 07/03/18 12:50 07/03/18 12:50 07/03/18 12:50 07/03/18 12:50 07/03/18 12:50 Notes: Reviewed vital signs and nursing note as charted by RN. CONSTITUTIONAL: Alert and oriented and responds appropriately to questions. Well-appearing; well-nourished HEAD: Normocephalic; atraumatic EYES: Sclerae non-icteric CARD: Regular rate and rhythm; no murmurs; symmetric distal pulses RESP: Normal chest excursion without splinting or tachypnea; breath sounds clear and equal bilaterally; no wheezes, no rhonchi, no rales ABD/GI: Normal bowel sounds; non-distended; soft, non-tender currently to deep palpation of all 4 quadrants of the abdomen; no palpable organomegaly or masses BACK: The back appears normal and is non-tender to palpation EXT: Normal ROM in all joints; non-tender to palpation; no edema SKIN: No acute lesions noted NEURO: CN 2-12 intact; 5/5 bilateral upper and lower extremity strength with sensation intact to light touch PSYCH: The patient's mood and manner are appropriate. Grooming and personal hyg iene are appropriate. Course - Re-evaluation Re-evalutation: 07/03/18 13:32 Given the above history and physical examination, we will obtain basic labs, liver panel and lipase, white blood cell count, and stool studies. Patient cur rently has no abdominal pain. Vital signs are stable. No recent trips, travel, recent antibiotics. Given the possibility of the immunosuppressive state, we will order ova and parasites. 07/03/18 14:59 Labs as recorded. Still no pain. Vital signs are stable. Given the history of kidney transplant, I will obtain a noncontrast CT scan of the abdomen and pelvis. 07/03/18 16:[address] as recorded. Normal appendix. We will perform an ultrasound of the abdominal kidney. 07/03/18 17:48 I was able to talk with the covering magazine hand at [facility], Dr Soria. I explained the full history and physical examination, creatinine level, CT scan, and urine analysis. He actually does not believe that ultrasound would be beneficial at this time. Patient is already had ultrasound. Patient currently denies any and all pain. Vital signs are stable. White count as recorded. Urine analysis shows no infection. CT scan shows a normal appendix. Patient will be discharged home with strict return precautions and follow-up. Patient was not able to provide a stool sample here during her stay. - Vital Signs Vital signs: Temp Pulse Resp BP Pulse Ox 98.6 F 77 19 151/61 H 97 07/03/18 12:50 07/03/18 12:50 07/03/18 15:00 07/03/18 12:50 07/03/18 15:00 - Laboratory Result Diagrams: 07/03/18 13:30 07/03/18 14:34 Laboratory results interpreted by me: 07/03/18 07/03/18 07/03/18 13:30 14:34 16:00 Hgb 11.0 L Hct 34.1 L RDW 17.6 H Chloride 108 H BUN 24 H Est GFR (Non-Af Amer) 53 L Glucose 211 H Alkaline Phosphatase 157 H Urine Glucose (UA) 50 H Discharge - Discharge Clinical Impression: Abdominal tenderness Qualifiers: Abdominal location: right lower quadrant Presence of rebound: absent Qualified Code(s): R10.813 - Right lower quadrant abdominal tenderness Condition: Good Disposition: HOME, SELF-CARE Additional Instructions: Come back immediately with any return of pain, fevers, vomiting, return or worsening diarrhea, inability or difficulty urinating, or any other acute problems. I called and spoke directly to you magazine hand who states that they will attempt to call you to have you be reseen for reevaluation and laboratory work this coming week. Referrals: DAMIAN GAMEZ MD [Primary Care Provider] - Follow up as needed
[2018-07-03 13:55] LABS: ABSOLUTE EOSINOPHILS # (AUTO) 0.1 10^3/uL (0.0-0.6); ABSOLUTE LYMPHOCYTES (AUTO) 1.4 10^3/uL (0.5-4.7); ABSOLUTE MONOCYTES (AUTO) 0.3 10^3/uL (0.1-1.4); ABSOLUTE NEUT (AUTO) 3.5 10^3/uL (1.7-8.2); BASOPHILS % (AUTO) 0.7 % (0-2); EOSINOPHILS % (AUTO) 1.3 % (0-6); HEMATOCRIT 34.1 % (36.0-47.0); LYMPHOCYTES % (AUTO) 26.6 % (13-45); MEAN CORPUSCULAR HEMOGLOBIN 27.7 pg (27.0-33.4); MEAN CORPUSCULAR HGB CONC 32.3 g/dL (32.0-36.0); MEAN CORPUSCULAR VOLUME 86 fl (80-97); MONOCYTES % (AUTO) 5.8 % (3-13); PLATELET COUNT 205 10^3/uL (150-450); RED BLOOD COUNT 3.97 10^6/uL (3.72-5.28); RED CELL DISTRIBUTION WIDTH 17.6 % (11.5-14.0); SEGMENTED NEUTROPHILS % (AUTO) 65.6 % (42-78); TOTAL CELLS COUNTED % (AUTO) 100 %; WHITE BLOOD COUNT 5.3 10^3/uL (4.0-10.5)
[2018-07-03 14:55] LABS: ALANINE AMINOTRANSFERASE 17 U/L (9-52); ALBUMIN 3.5 g/dL (3.5-5.0); ALKALINE PHOSPHATASE 157 U/L (38-126); ANION GAP 5 (5-19); ASPARTATE AMINO TRANSFERASE 21 U/L (14-36); BILIRUBIN,DIRECT 0.2 mg/dL (0.0-0.4); BILIRUBIN,TOTAL 0.3 mg/dL (0.2-1.3); BLOOD UREA NITROGEN 24 mg/dL (7-20); CARBON DIOXIDE 25 mmol/L (22-30); CHLORIDE 108 mmol/L (98-107); GLUCOSE 211 mg/dL (75-110); LIPASE 111.2 U/L (23-300); POTASSIUM 4.8 mmol/L (3.6-5.0); SODIUM 138.2 mmol/L (137-145); TOTAL PROTEIN 6.3 g/dL (6.3-8.2)
--- NOTE | 2018-07-03 15:33 | RADIOLOGY REPORT (SQ) ---
EXAM DESCRIPTION: CT ABD/PELVIS NO ORAL OR IV COMPLETED DATE/TIME: 07/03/2018 3:22 pm REASON FOR STUDY: 19; right lower quadrant pain; history of a kidney COMPARISON: None. TECHNIQUE: CT scan of the abdomen and pelvis performed without intravenous or oral contrast. Images reviewed with lung, soft tissue, and bone windows. Reconstructed coronal and sagittal MPR images revi ewed. All images stored on PACS. All CT scanners at this facility use dose modulation, iterative reconstruction, and/or weight based d osing when appropriate to reduce radiation dose to as low as reasonably achievable (ALARA). [facility]: Dose Right [facility]: CareDose [facility]: Dose Right [facility]: Teradose 4D [facility]: Smart Cydcor RADIATION DOSE: CT Rad equipment meets quality standard of care and radiation dose reduction techniq ues were employed. CTDIvol: 7.4 mGy. DLP: 369 mGy-cm.mGy. LIMITATIONS: None. FINDINGS: LOWER CHEST: Coronary artery calcifications. NON-CONTRASTED LIVER, SPLEEN, ADRENALS: Evaluation limited by lack of IV contrast. No identified sign ificant masses. PANCREAS: No masses. No peripancreatic inflammatory changes. GALLBLADDER: Surgically absent. RIGHT KIDNEY AND URETER: Atrophic. No suspicious masses. Assessment limited by lack of IV contrast. No significant calcifications. No hydronephrosis or hydroureter. LEFT KIDNEY AND URETER: Atrophic. No suspicious masses. Assessment limited by lack of IV contrast. No significant calcifications. No hydronephrosis or hydroureter. AORTA AND RETROPERITONEUM: No aneurysm. No retroperitoneal masses or adenopathy. Pipe like atheroscl erosis. BOWEL AND PERITONEAL CAVITY: Status post Josefina-en-Y gastric bypass. No obvious masses or inflammator y changes. No free fluid. APPENDIX: Normal. PELVIS, BLADDER, AND ABDOMINAL WALL:Right lower quadrant renal transplant graft. No abnormal masses. No free fluid. Bladder normal. BONES: No significant findings. OTHER: No other significant finding. IMPRESSION: 1. Normal appendix in the right lower quadrant. 2. Right lower quadrant renal transplant graft, unremarkable in noncontrast CT appearance. Renal tr ansplant may be further evaluated by ultrasound if desired. 3. Status post Josefina-en-Y gastric bypass. COMMENT: Quality ID # [id number]: Final reports with documentation of one or more dose reduction techniques (e.g., Automated exposure control, adjustment of the mA and/or kV according to patient size, use of iterative reconstruction technique) TECHNICAL DOCUMENTATION: JOB ID: [id number] [employer]- All Rights Reserved Reading location - IP/workstation name: [email or web address]
[2018-07-03 16:29] LABS: APPEARANCE,URINE CLEAR; BILIRUBIN,URINE NEGATIVE (NEGATIVE); COLOR,URINE YELLOW; GLUCOSE, URINE 50 mg/dL (NEGATIVE); KETONES,URINE NEGATIVE (NEGATIVE); LEUKOCYTE ESTERASE,URINE NEGATIVE (NEGATIVE); NITRITE,URINE NEGATIVE (NEGATIVE); PROTEIN,URINE NEGATIVE (NEGATIVE); URINE SPECIFIC GRAVITY 1.012; UROBILINOGEN,URINE NEGATIVE mg/dL (<2.0)
--- NOTE | 2018-07-03 18:28 | RADIOLOGY REPORT (SQ) ---
EXAM DESCRIPTION: U/S RETROPERITON LTD COMPLETED DATE/TIME: 07/03/2018 6:12 pm REASON FOR STUDY: 19; evaluate abdominal transplant kidney COMPARISON: None. TECHNIQUE: Dynamic and static grayscale images acquired of the [place] kidneys, right lower quadrant transplant graft, and bladder and recorded on PACS. Additional selected color Doppler and spectral im ages recorded. LIMITATIONS: None. FINDINGS: RIGHT LOWER QUADRANT TRANSPLANT GRAFT: Normal in size and appearance. No hydronephrosis; anastomotic urinary jet is visualized. Patent Doppler flow in the main graft renal artery and vein. No perinephric fluid collection. RIGHT KIDNEY: Very atrophic. No solid or suspicious masses. No hydronephrosis. No calcification s. LEFT KIDNEY: Very atrophic. No solid or suspicious masses. No hydronephrosis. No calcifications . BLADDER: No masses. OTHER FINDINGS: No other significant finding. IMPRESSION: No ultrasound abnormality of the right lower quadrant renal transplant graft. No hydron ephrosis. Anastomotic urinary jet is visualized. Patent Doppler flow in the main graft renal artery and vein. No perinephric fluid collection. Complete Doppler evaluation including branch resistive indices is not performed on this limited examination. TECHNICAL DOCUMENTATION: JOB ID: [id number] [employer]- All Rights Reserved Reading location - IP/workstation name: [email or web address]
[2018-07-03 18:45] VITALS: BP 152/63
== END 2018-07-03 18:49 | disposition home or self-care (01) ==
LOC: ER 12:43
DX: R10.813 Right lower quadrant abdominal tenderness (principal); E78.00 Pure hypercholesterolemia, unspecified; I10 Essential (primary) hypertension; J44.9 Chronic obstructive pulmonary disease, unspecified; E11.9 Type 2 diabetes mellitus without complications; Z90.49 Acquired absence of other specified parts of digestive tract; Z94.0 Kidney transplant status; Z98.84 Bariatric surgery status
CPT/HCPCS: 99284; 96360; 96361; 36415; 83690; 85025; 80053; 81001; 76775; 74176; J7030

== ENCOUNTER → 2018-07-16 | Outpatient (CLI) | payer MEDICARE, OTHER ==
--- NOTE | 2018-07-16 10:00 | WOMENS IMAGING REPORT ---
EXAM DESCRIPTION: 3D SCREENING MAMMO BILAT COMPLETED DATE/TIME: 07/16/2018 9:29 am REASON FOR STUDY: ROUTINE BILATERAL SCREENING;Z12.31 Z12.31 ENCNTR SCREEN MAMMOGRAM FOR MALIGNANT N EOPLASM OF LISA COMPARISON: 2012- 2016 TECHNIQUE: Standard craniocaudal and mediolateral oblique views of each breast recorded using digita l acquisition and breast tomosynthesis. LIMITATIONS: None. FINDINGS: RIGHT BREAST MASSES: No suspicious masses. CALCIFICATIONS: No new or suspicious calcifications. ARCHITECTURAL DISTORTION: None. DEVELOPING DENSITY: None. ASYMMETRY: None noted. OTHER: No other significant findings. LEFT BREAST MASSES: No suspicious masses. CALCIFICATIONS: 6 o'clock position about 5.5 cm deep to the nipple. ARCHITECTURAL DISTORTION: None. DEVELOPING DENSITY: None. ASYMMETRY: None noted. OTHER: No other significant findings. Read with the assistance of CAD. .[facility] - R2 Cenova Version 1.3 .[facility] Imaging - R2 Cenova Version 1.3 .[facility] Imaging - R2 Cenova Version 2.4 .[facility] - R2 Cenova Version 2.4 .[facility] - R2 Washcloth Folder Version 9.2 IMPRESSION: Calcifications left breast. BREAST DENSITY: b. There are scattered areas of fibroglandular density. BIRAD: 0 Incomplete: Needs Additional Imaging Evaluation and/or prior Mammograms for Comparison. RECOMMENDATION: RECOMMENDED FOLLOW-UP: True lateral and magnification views left breast. The patient will be contacted for additional imaging. COMMENT: The patient has been notified of the results by letter per SA requirements. Additional no tification policies are in place for contacting patient with suspicious or incomplete findings. Quality ID #225: The [employer] recommends an annual screening mammogram for women aged 40 years or over. This facility utilizes a reminder system to ensure that all patients receive reminder letters, and/or direct phone calls for appointments. This includes reminders for routine scr eening mammograms, diagnostic mammograms, or other Breast Imaging Interventions when appropriate. Th is patient will be placed in the appropriate reminder system. The [employer] (ACR) has developed recommendations for screening MRI of the breast s in certain patient populations, to be used in conjunction with mammography. Breast MRI surveillanc e may be appropriate for women with more than 20% lifetime risk of developing breast cancer as deter mined by genetic testing, significant family history of the disease, or history of mantle radiation f or Hodgkins Disease. ACR Practice Guidelines 2008. DBT Technology DBT is a type of tomographic mammography. With conventional mammography, overlapping breast tissue ma y make lesions difficult to detect, even with good compression. DBT uses an x-ray tube that rotates a round the breast, taking images at different angles. These images are then combined to create thin sl ices of the breast that the radiologist can view as a 3D reconstruction. The Kik unit can perform full-field digital mammograms (2D imaging); or DBT (3D imaging); or both, in a combination mode that quickly performs both the mammogram and the tomosynthesis scan while the breast is still compressed. PQRS 6045F: Fluoroscopic imaging is not utilized for breast tomosynthesis. TECHNICAL DOCUMENTATION: FINDING NUMBER: (1) ASSESSMENT: (1) JOB ID: [id number] [employer]- All Rights Reserved Reading location - IP/workstation name: [email or web address]
== END ==
LOC: WI 09:26
PROVIDERS: ATTEND Internal Medicine
DX: Z12.31 Encounter for screening mammogram for malignant neoplasm of breast (principal); R92.0 Mammographic microcalcification found on diagnostic imaging of breast
CPT/HCPCS: 77063; 77067

== ENCOUNTER → 2018-07-24 | Outpatient (CLI) | payer MEDICARE, OTHER ==
--- NOTE | 2018-07-27 17:23 | WOMENS IMAGING REPORT ---
EXAM DESCRIPTION: LEFT DIAGNOSTIC MAMMO W/CAD COMPLETED DATE/TIME: 07/24/2018 1:30 pm REASON FOR STUDY: R92.0 MAMMOGRAPHIC MICROCALCIFICATION FOUND ON DIAGNOSTIC IMAGING OF BREAST R92.0 MAMMOGRAPHIC MICROCALCIFICATION FOUND ON DX IMAGING OF COMPARISON: Multiple since 2015 TECHNIQUE: Compression magnification craniocaudal, 90 mediolateral and whole breast 90 mediolatera l images of the left breast recorded with digital acquisition. LIMITATIONS: None. FINDINGS: BREAST: Left MASSES: No suspicious masses. CALCIFICATIONS: Cluster of calcifications in the left breast deep central 6 o'clock position, 5 cm fr om the nipple, marked with a triangle. These are variable in size shape and density. Stereotactic b iopsy of these calcifications should be considered (BI-RADS 4A). Coarse dense benign appearing calcifications are present in the far upper outer quadrant left breast, 7 cm from the nipple these are benign in appearance and similar compared to prior films from 2015. ARCHITECTURAL DISTORTION: None. DEVELOPING DENSITY: None. ASYMMETRY: None noted. OTHER: No other significant findings. Read with the assistance of CAD. .[facility] - R2 Cenova Version 1.3 .[facility] Imaging - R2 Cenova Version 1.3 .[facility] Imaging - R2 Cenova Version 2.4 .[facility] - R2 Cenova Version 2.4 .[facility] - R2 Box [employer] Buffer Version 9.2 IMPRESSION: Calcifications in the deep left 6 o'clock position 5 cm from the nipple, for which stere otactic biopsy is indicated. BREAST DENSITY: b. There are scattered areas of fibroglandular density. BIRAD: 4 Suspicious. Biopsy should be considered. RECOMMENDATION: RECOMMENDED FOLLOW UP: Stereotactic biopsy recommended, left breast deep central lea cifications 6 o'clock position SPECIFIC INTERVENTION/IMAGING/CONSULTATION RECOMMENDED:No additional intervention/ imaging/consultati on needed at this time. COMMUNICATION:Patient notified by letter COMMENT: The patient has been notified of the results by letter per SA requirements. Additional no tification policies are in place for contacting patient with suspicious or incomplete findings. Quality ID #225: The [employer] recommends an annual screening mammogram for women aged 40 years or over. This facility utilizes a reminder system to ensure that all patients receive reminder letters, and/or direct phone calls for appointments. This includes reminders for routine scr eening mammograms, diagnostic mammograms, or other Breast Imaging Interventions when appropriate. Th is patient will be placed in the appropriate reminder system. The [employer] (ACR) has developed recommendations for screening MRI of the breast s in certain patient populations, to be used in conjunction with mammography. Breast MRI surveillanc e may be appropriate for women with more than 20% lifetime risk of developing breast cancer as deter mined by genetic testing, significant family history of the disease, or history of mantle radiation f or Hodgkins Disease. ACR Practice Guidelines 2008. TECHNICAL DOCUMENTATION: FINDING NUMBER: (1) ASSESSMENT: (1) JOB ID: [id number] [employer]- All Rights Reserved Reading location - IP/workstation name: [email or web address]
== END ==
LOC: WI 13:08
PROVIDERS: ATTEND Internal Medicine
DX: R92.0 Mammographic microcalcification found on diagnostic imaging of breast (principal)

== ENCOUNTER → 2018-08-12 | Day surgery (SDC) | payer MEDICARE, OTHER ==
[~2018-08-12] MED LIST: LIDOCAINE 1%/EPINEPHRINE INJ 20 ML VIAL ONE; LIDOCAINE 2% INJ (20 MG/ML) 20 ML MDV ONE
--- NOTE | 2018-08-14 12:23 | RADIOLOGY REPORT (SQ) ---
EXAM DESCRIPTION: STEREO BREAST BX; LEFT DIG DX MAMMO NO CHG COMPLETED DATE/TIME: 08/12/2018 12:18 pm; 08/12/2018 11:06 am REASON FOR STUDY: N63.21 UNSPECIFIED LUMP IN THE LEFT BREAST, UPPER OUTER QUADRANT; POST STEREO N63. 21 UNSPECIFIED LUMP IN THE LEFT BREAST, UPPER OUTER QUAD R92.0 MAMMOGRAPHIC MICROCALCIFICATION FOUN D ON DX IMAGING OF COMPARISON: Multiple previous mammograms most recently 07/24/2018 TECHNIQUE: Vacuum-assisted stereotactic-guided biopsy of the lesion in the left breast. Serial progr ess stereotactic and single digital images acquired. PROCEDURE: The procedure was discussed with the patient, including possible complications such as bleeding, infection, nondiagnostic sample or possible findings such as atypical ductal hyperplasia wh ich would require additional surgery. Possible clip placement was explained. The patient agreed t o the procedure. The patient was placed prone on the stereotactic table. The lesion in the breast was localized ster eotactically. The skin of the breast was prepped in sterile fashion. Superficial and deep local an esthesia was provided. A small incision was made in the skin and the biopsy probe was advanced to t he target. Using the vacuum-assisted core biopsy device, multiple core specimens were obtained. Continuous low dose infusion of local anesthesia was used during the procedure. A specimen radiograph was obtained. The radiograph demonstrated calcifications of concern in the bio psy tissue. Using [id number] technique a pellet clip was deployed at the biopsy site. Mammographic image confirmed presence of the clip. The probe was then removed and hemostasis obtained with manua l compression. A compression bandage was applied. Postoperative instructions were explained to th e patient. POST-PROCEDURE TWO VIEW DIGITAL MAMMOGRAM: An additional two view mammogram was recorded in the [facility] mammographic suite. Marker clip is present at the biopsy site. LIMITATIONS: None. FINDINGS: PATHOLOGY: Benign stromal microcalcifications. No carcinoma in situ or invasive carcinoma identified. CONCORDANT: Yes POST PROCEDURE MAMMOGRAMS FOR MARKER PLACEMENT: Yes IMPRESSION: SUCCESSFUL STEREOTACTIC-GUIDED BIOPSY OF THE LESION IN THE LEFT BREAST. BIOPSY RESULTS ARE CONCORDANT WITH IMAGING FINDINGS. BI-RADS 2, BENIGN FINDINGS FOLLOW-UP: PATIENT SHOULD CONTINUE YEARLY BILATERAL SCREENING MAMMOGRAPHY/ TOMOSYNTHESIS IN JULY 08. NOTIFICATION: THESE RESULTS HAVE BEEN DISCUSSED DIRECTLY WITH THE PATIENT, 08/13/2018 1600 HOURS. SHE UNDERSTANDS THIS WAS A BENIGN BIOPSY AND THAT SHE IS TO RETURN TO YEARLY SCREENING COMMENT: Patient medication list reviewed: Yes- Quality ID# [id number]:Eligible professional attests to doc umenting in the medical record they obtained, updated, or reviewed the patient's current medications. TECHNICAL DOCUMENTATION: JOB ID: [id number] [employer]- All Rights Reserved Reading location - IP/workstation name: [email or web address]
== END ==
LOC: RAD 09:19
PROVIDERS: ATTEND Internal Medicine
DX: N63.21 Unspecified lump in the left breast, upper outer quadrant (principal); R92.0 Mammographic microcalcification found on diagnostic imaging of breast; Z12.31 Encounter for screening mammogram for malignant neoplasm of breast
CPT/HCPCS: 88305 ×2; 88342; 19081; J3490 ×2

== ENCOUNTER → 2020-05-18 | Outpatient (CLI) | payer MEDICARE, OTHER ==
--- NOTE | 2020-05-18 08:43 | WOMENS IMAGING REPORT ---
EXAM DESCRIPTION: 3D SCREENING MAMMO BILAT IMAGES COMPLETED DATE/TIME: 05/18/2020 7:13 am REASON FOR STUDY: ROUTINE BILATERAL SCREENING;Z12.31 Z12.31 ENCNTR SCREEN MAMMOGRAM FOR MALIGNANT N EOPLASM OF LISA COMPARISON: Priors back to 2014 EXAM PARAMETERS: Views: Standard craniocaudal and mediolateral oblique views of each breast recorded using digital acquisition and breast tomosynthesis. Read with the assistance of CAD. .[facility] - [employer] Version 9.2 LIMITATIONS: None. FINDINGS: No suspicious masses, suspicious calcifications or architectural distortion. No areas of c oncern. IMPRESSION: NEGATIVE MAMMOGRAM. BIRADS 1. BREAST DENSITY: b. There are scattered areas of fibroglandular density. BIRAD: ASSESSMENT: 1 NEGATIVE RECOMMENDATION: ROUTINE SCREENING COMMENT: The patient has been notified of the results by letter per MQSA requirements. Additional no tification policies are in place for contacting patient with suspicious or incomplete findings. Quality ID #225: The [employer] recommends an annual screening mammogram for women aged 40 years or over. This facility utilizes a reminder system to ensure that all patients receive reminder letters, and/or direct phone calls for appointments. This includes reminders for routine scr eening mammograms, diagnostic mammograms, or other Breast Imaging Interventions when appropriate. Th is patient will be placed in the appropriate reminder system. TECHNICAL DOCUMENTATION: FINDING NUMBER: (1) ASSESSMENT: (1) JOB ID: [id number] [employer]- All Rights Reserved Reading location - IP/workstation name: [email or web address]
--- OUTSIDE RECORDS SUMMARY | 2020-05-19 15:18 | XMS REPORT ---
:1955 [facility] [address] [place] [id number] Care Team Providers Name Role Phone MaryanicolekielgricelTamiko Primary Care Physician Unavailable Rashmi Attending Clinician Unavailable Gage Attending Clinician Unavailable Peter Attending Clinician Unavailable Dakotah Attending Clinician Unavailable Geo Attending Clinician Unavailable Jonh Attending Clinician Unavailable Allergies, Adverse Reactions, Alerts This patient has no known allergies or adverse reactions. Medications Ordered Filled Start Stop Current Ordering Indication Dosage Frequency Signature Comments Components Medication Medication Date Date Medication? Clinician (SIG) Name Name Cyanocobala No QD 1 tablet min 1000 6-27 under the MCG 00:00: tongue and 00 allow to dissolve Sublingual Once a day Ergocalcife 0 No 1 capsule rol 26262 6-27 Orally UNIT 00:00: weekly 00 Atorvastati 0 No QD 1 tablet n Calcium 2-12 Orally 40 mg 00:00: Once a day 00 Victoza 18 0 No QD 1.8 mg MG/3ML 6-26 Subcutaneo 00:00: us daily 00 Synjardy XR 0 No QD 1 tablet 25-1000 MG 6-26 with 00:00: breakfast 00 Orally Once a day diltiazem No 1 TID diltiazem 120 mg 120 mg tablet Take tablet 1 tablet 3 Take 1 times a day tablet 3 by oral times a route. day by oral route. Mobic 7.5 No 1 Q1D Mobic 7.5 mg tablet mg tablet Take 1 Take 1 tablet tablet every day every day by oral by oral route for route for 30 days. 30 days. NovoLog Yes TID 1 units Flexpen 100 with meals UNIT/ML Subcutaneo us/250.62 three times a day Lisinopril No QD 1 tablet 10 MG Orally Once a day Prograf 1 No BID 3 tablets MG Orally twice a day Amlodipine No QD 1 tablet Besylate 5 Orally MG Once a day Levemir No BID 13 units FlexTouch Subcutaneo 100 UNIT/ML us twice a day Diltiazem No QD 1 capsule HCl ER 120 Orally MG Once a day Famotidine No QD 1 tablet 20 MG Orally Once a day Docusate No BID 1 capsule Sodium 100 as needed MG Orally twice a day Aspirin 81 No BID 1/2 tablet MG Orally Twice a day Metoprolol No BID 1 tablet Tartrate with food 100 MG Orally Twice a day PredniSONE No QD 1 tablet 5 MG Orally Once a day Myfortic No BID 4 tablets 180 MG Orally twice a day Problems Condition Condition Condition Status Onset Resolution Last Treatin g Comments Name Details Category Date Date Treatment Clinician Date Vaccination Encounter Problem Active given for 04-01 immunizatio 00:00: n 00 Screening Encounter Problem Active for for 03-08 malignant screening 00:00: neoplasm of mammogram 00 breast for malignant neoplasm of breast Anterograde Anterograde Problem Active amnesia amnesia 12-04 00:00: 00 Limitation Limitation Problem Active 2016-07 of joint of Joint 07-13 movement Movement 00:00: 00 Difficulty Difficulty Problem Active 2016-07 walking up Walking up 1-07 stairs Stairs 00:00: 00 Difficulty Difficulty Problem Active 2016-07 walking Walking 107 down stairs Down Stairs 00:00: 00 Pain in Pain in Problem Active 2016-07 right knee Right Knee 07-13 00:00: 00 Pain in Pain in Problem Active right knee right knee 12-21 00:00: 00 History of Kidney Problem Active renal transplant 12-21 transplant status 00:00: 00 Diabetes Diabetes Problem Active mellitus Mellitus 11-28 00:00: 00 Hypertensiv Hypertensiv Problem Active e disorder e Disorder 11-28 00:00: 00 History of History of Problem Active renal Renal 11-28 transplant Transplant 00:00: 00 Polyneuropa 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 09-26 type 2 mellitus 00:00: diabetes with 00 mellitus diabetic polyneuropa thy Essential Essential Problem Active hypertensio (primary) 8-27 n hypertensio 00:00: n 00 Depression Depression Problem Active 03-09 00:00: 00 Hypertensio Hypertensio Problem Active n n 03-09 00:00: 00 Pure hypercholes Problem Active hypercholes terolemai 03-09 terolemia 00:00: 00 Hemodialysi Hemodialysi Problem Active s s 03-09 00:00: 00 Anemia in Anemia in Problem Active chronic chronic 03-09 kidney kidney 00:00: disease disease 00 Diabetic Diabetes Problem Active renal with renal 03-09 disease manifestati 00:00: ons, type 00 II or unspecified type, not stated as uncontrolle d Nephrotic Nephrotic Problem Active syndrome syndrome 03-09 with 00:00: unspecified 00 pathologica l lesion in kidney End stage End stage Problem Active renal renal 03-09 disease disease 00:00: 00 Neurologic Diabetes Problem Active disorder with 06 associated neurologica 00:00: with type l 00 II diabetes manifestati mellitus ons, type II or unspecified type, uncontrolle d Diabetic Diabetes Problem Active oculopathy with 4-19 ophthalmic 00:00: manifestati 00 ons, type II or unspecified type, not stated as uncontrolle d Procedures Procedure Date / Time Performed Performing Clinician Devic e ADMN PNEUMCOC VAC NO FEE 2019-04-01 00:00:00 PNEUMOCOCCAL VACC, 13 ALICIA IM 2019-04-01 00:00:00 ADMN FLU VAC NO FEE SCHED 2019-04-01 00:00:00 FLU VAC NO PRSV 4 ALICIA 3 YRS+ 2019-04-01 00:00:00 DSCHRG MED/CURRENT MED MERGE 2018-12-31 00:00:00 RADIOLOGIC EXAM KNEE 1 OR 2 VIEWS 2018-06-19 00:00:00 OFFICE OUTPATIENT VISIT 40 MINUTES 2017-06-16 09:31:00 Total Knee Arthroplasty 2017-04-21 00:00:00 OFFICE OUTPATIENT VISIT 40 MINUTES 2017-04-10 10:48:00 MRI neck limited ([id number]) 2017-01-08 13:58:00 OFFICE OUTPATIENT VISIT 40 MINUTES 2017-01-08 13:20:00 Bone Density ([id number]) 2016-11-18 16:13:00 OFFICE OUTPATIENT VISIT 40 MINUTES 2016-07-18 09:50:00 JERROD Appointment for Procrit ([id number]) 2016-01-02 10:37:00 Administration of EPO ([id number]) 2016-01-02 10:31:00 JERROD Appointment for Procrit ([id number]) 2015-12-19 11:51:00 Administration of JERROD ([id number]) 2015-12-19 11:50:00 JERROD Appointment for Procrit ([id number]) 2015-12-12 11:21:00 Administration of EPO ([id number]) 2015-12-12 11:21:00 JERROD Appointment for Procrit ([id number]) 2015-12-05 13:21:00 Administration of EPO ([id number]) 2015-12-05 13:21:00 JERROD Appointment for Procrit ([id number]) 2015-11-21 10:57:00 Administration of EPO ([id number]) 2015-11-21 10:56:00 JERROD Appointment for Procrit ([id number]) 2015-10-10 11:40:00 Administration of EPO ([id number]) 2015-10-10 11:39:00 KIDNEY ENDOSCOPY 2015-07-07 00:00:00 LAP GASTRIC BYPASS/MICHAEL-EN-Y 2010-07-07 00:00:00 Cataract Surgery 2003-07-07 00:00:00 Gallbladder Surgery 2001-07-07 00:00:00 Hysterectomy 1991-07-07 00:00:00 Results Test Description Test Time Test Comments Text Results Atomic Results Result Comments CBC + AUTOMATED DIFF 2019-04-01 00:00:00 Test Item Value Reference Range Comments WBC (test code = WBC) 5.2 4.2-11.8 RBC (test code = RBC) 3.68 3.8-5.0 HEMOGLOBIN (test code = HEMOGLOBIN) 10.0 11.3-14.9 HEMATOCRIT (test code = HEMATOCRIT) 33 34-44.3 MCV (test code = MCV) 89 80.8-97.4 MCH (test code = MCH) 27.2 26.6-33.0 MCHC (test code = MCHC) 30.6 32-34.9 RDW (test code = RDW) 17.9 11.8-15.5 PLATELET (test code = PLATELET) 213 147-365 MPV (test code = MPV) 8.13 6.00-12.00 SEGMENTED% (test code = SEGMENTED%) 71.8 43.7-73.5 SEGMENTED# (test code = SEGMENTED#) 3.7 1.9-7.5 LYMPHOCYTES% (test code = LYMPHOCYTES%) 21.18 17.9-45. 1 LYMPHOCYTES# (test code = LYMPHOCYTES#) 1.1 1-4 MONOCYTES% (test code = MONOCYTES%) 5.9 3.8-10 MONOCYTES# (test code = MONOCYTES#) 0.3 0.2-0.9 EOSINOPHILS% (test code = EOSINOPHILS%) 0.85 0.0-6.1 EOSINOPHILS# (test code = EOSINOPHILS#) 0.04 0.0-0.5 BASOPHILS% (test code = BASOPHILS%) 0.27 0.0-0.9 BASOPHILS# (test code = BASOPHILS#) 0.01 0.0-0.1 [facility] [id number] 00:00:00 Test Item Value Reference Range Comments SODIUM (test code = SODIUM) 143 136-145 POTASSIUM (test code = POTASSIUM) 4.7 3.5-5.1 CHLORIDE (test code = CHLORIDE) 111 98-107 CARBONDIOXIDE (test code = CARBONDIOXIDE) 23.0 17-32 GLUCOSE (test code = GLUCOSE) 63 70-99 BUN (test code = BUN) 28 7-25 CREATININESERUM (test code = CREATININESERUM) 0.96 0. 5-1.2 BUN/CREATININERATIO (test code = BUN/CREATININERATIO) 29 8-28 BILIRUBIN,Total (test code = BILIRUBIN,Total) 0.3 0. 2-1.0 CALCIUM (test code = CALCIUM) 9.1 8.6-10.5 PROTEINTOTAL (test code = PROTEINTOTAL) 6.5 6.6-8.2 ALBUMIN (test code = ALBUMIN) 3.9 3.5-5.7 ALK.PHOSPHATASE (test code = ALK.PHOSPHATASE) 134 34 -104 ALT(SGPT) (test code = ALT(SGPT)) 11 7-52 AST(SGOT) (test code = AST(SGOT)) 14 11-39 GLOBULIN (test code = GLOBULIN) 2.6 1.8-4.0 A/GRATIO (test code = A/GRATIO) 1.5 0.8-2.7 GLOMERULARFILT.RATE (test code = GLOMERULARFILT.RATE) 62 >60 HEMOGLOBIN A1c (HGB AIC)2019-04-01 00:00:00 Test Item Value Reference Range Comments [id number](HGBAIC) (test code = 4548-4) 9.9 4.0-5 .6 LIPID [id number] 00:00:00 Test Item Value Reference Range Comments CHOLESTEROL (test code = CHOLESTEROL) 188 <200 TRIGLYCERIDES (test code = TRIGLYCERIDES) 106 10-149 HDLCHOLESTEROL (test code = HDLCHOLESTEROL) 57 40-1 99 LDL/HDLRATIO (test code = LDL/HDLRATIO) 1.93 0.00-4.9 7 LDLCHOLESTEROL,calc. (test code = 110 <100 LDLCHOLESTEROL,calc.) VLDLCHOLESTEROL,calc. (test code = 21 5-40 VLDLCHOLESTEROL,calc.) CHOLESTEROL/HDLRATIO (test code = 3.30 2.00-5.00 CHOLESTEROL/HDLRATIO) NON-HDLCHOLESTEROL (test code = NON-HDLCHOLESTEROL) 131 0-159 URIC [id number] 00:00:00 Test Item Value Reference Range Comments URICACID (test code = URICACID) 4.8 2.3-6.6 [id number] 00:00:00 Test Item Value Reference Range Comments COLOR (test code = COLOR) YELLOW YELLOW CLARITY (test code = CLARITY) HAZY CLEAR SPECIFICGRAVITY (test code = SPECIFICGRAVITY) 1.015 1. 005-1.025 pH (test code = pH) 5.0 5.0-8.5 URINEPROTEIN (test code = URINEPROTEIN) NEGATIVE NEGATIVE URINEGLUCOSE (test code = URINEGLUCOSE) NEGATIVE NEGATIVE URINEKETONE (test code = URINEKETONE) NEGATIVE NEGATIVE URINEBILIRUBIN (test code = URINEBILIRUBIN) NEGATIVE NEGA TIVE URINEBLOOD (test code = URINEBLOOD) NEGATIVE NEGATIVE URINENITRITE (test code = URINENITRITE) NEGATIVE NEGATIVE UROBILINOGEN (test code = UROBILINOGEN) 0.2 0.2-1.0 LEUKOCYTE (test code = LEUKOCYTE) NEGATIVE NEGATIVE *PleaseNote: (test code = *PleaseNote:) MICROALBUMIN/CREATINE [id number] 00:00:00 Test Item Value Reference Range Comments MICROALB/CREATRATIO (test code = 21597-0) 360 0-29 CREATININE,URINE (test code = CREATININE,URINE) 76 20-300 TSH + FREE [id number] 00:00:00 Test Item Value Reference Range Comments [id number] (test code = [id number]) 1.156 0.340-4.410 FREET4 (test code = FREET4) 1.06 0.61-1.12 LAB [id number] 00:00:00 Test Item Value Reference Range Comments PDF (test code = PDF) LAB BK Quantitation PCR ([facility]: [id number]) ([id number])2017-04-15 00:00:00 Test Item Value Reference Range Comments BK Quantitation PCR (test code = Negative copies/mL Negative 040067) log10 BK Qn PCR (test code = Test Not Performed. 927981) mmn39sfkh/mL JING and PE, Serum (SPEP) ([facility]: [id number]) (25037)2017-04-15 00:00:00 Test Item Value Reference Range Comments Protein, Total, Serum (test code = 461237) 6.9 g/dL 6.0-8 .5 Please note: (test code = 194719) Comment Immunoglobulin M, Qn, Serum (test code = 61 mg/dL 26-217 198962) Immunoglobulin G, Qn, Serum (test code = 778 mg/dL 700-160 0 632906) Albumin (test code = 392690) 4.0 g/dL 2.9-4.4 Ufgcc-2-Qnolqpty (test code = 566510) 0.2 g/dL 0.0-0.4 M-Nathan (test code = 691409) Not Observed g/dL Not Observed Bfhnw-3-Zoanyzkr (test code = 527236) 0.8 g/dL 0.4-1.0 A/G Ratio (test code = 906200) 1.4 0.7-1.7 Beta Globulin (test code = 828963) 1.1 g/dL 0.7-1.3 Globulin, Total (test code = 420623) 2.9 g/dL 2.2-3.9 Immunoglobulin A, Qn, Serum (test code = 182 mg/dL 87-352 999053) Immunofixation Result, Serum (test code = Comment 156712) Gamma Globulin (test code = 863796) 0.8 g/dL 0.4-1.8 Mycophenolic Acid and Metabolism ([facility]: [id number]) (63003)2017-04-14 00:00:00 Test Item Value Reference Range Comments Mycophenolic Acid (test code = 361154) 0.3 ug/mL 1.0-3.5 Mycophenolic Acid Glucuronide (test code = 416809) 9 ug/mL 15-125 ImmuKnow ([facility]: [id number]) (68853)2017-04-14 00:00:00 Test Item Value Reference Range Comments ImmuKnow (R) (test code = 564534) 204 ng/mL ATP Hepatitis B, Surface Ag, EIA (09335)2017-04-11 00:00:00 Test Item Value Reference Range Comments HBsAg Screen (test code = 665785) Negative Negative Urinalysis, Complete ([facility]: [id number])2017-04-10 00:00:00 Test Item Value Reference Range Comments Bacteria (test code = Bacteria) None Seen None Seen Other (test code = Other) None Seen None Seen Casts (test code = Casts) Rare Hyaline /LPF None Seen Crystals (test code = Crystals) None Seen None Seen Epithelial (test code = Epithelial) Few /HPF None Seen Clarity (test code = Clarity) Clear Clear Ketone (test code = Ketone) Negative mg/dL Negative Leukocytes (test code = Leukocytes) Negative Negative Urobiliogen (test code = Urobiliogen) 0.2 E.U./dL E.U./dL WBCU (test code = WBCU) None Seen /HPF None Seen Bilirubin (test code = Bilirubin) Negative mg/dL Negative Blood (test code = Blood) Negative Negative RBCU (test code = RBCU) None Seen /HPF None Seen Specific Sarah (test code = Specific 1.020 Sarah) Nitrite (test code = Nitrite) Negative Negative GlucoseU (test code = GlucoseU) 100 mg/dL mg/dL Negative Color (test code = Color) Light yellow pH (test code = pH) 5.5 Protein (test code = Protein) Trace mg/dL Tacrolimus (FK506, Prograf), Blood ([facility]: [id number]) (56024)2017-04-10 00:00:00 Test Item Value Reference Range Comments Tacrolimus (test code = Tacrolimus) 4.2 ng/ml DOSE (test code = DOSE) 2mg TIME (test code = TIME) 04/10/17 10:30pm Hemoglobin A1c ([facility]: [id number]) (77270)2017-04-10 00:00:00 Test Item Value Reference Range Comments HBA1C (test code = HBA1C) 10.8 % 4.5-6.2 Intact PTH ([facility]: [id number]) (08916)2017-04-10 00:00:00 Test Item Value Reference Range Comments IPTH (test code = IPTH) 117.5 pg/mL 8.2-83.5 CBC with Differential/Platelets ([facility]: [id number])2017-04-10 00:00:00 Test Item Value Reference Range Comments Hematocrit (test code = Hematocrit) 35.7 % 34.1-44.9 WBC (test code = WBC) 7.4 x10-3/uL 4.0-10.0 Hemoglobin (test code = Hemoglobin) 10.9 g/dL 11.2-15.7 Platelet count (test code = Platelet count) 181 x10-3/uL 182- 369 MCH (test code = MCH) 26.7 pg/cell 25.6-32.2 MCV (test code = MCV) 88 fL 79-95 RDWC (test code = RDWC) 14.4 % 11.7-14.4 MPV (test code = MPV) 10.6 fl RBC (test code = RBC) 4.08 x10-6/uL 3.93-5.22 MCHC (test code = MCHC) 30.5 g/dL 32.2-35.5 NEUT% (test code = NEUT%) 80.5 % 34.0-71.1 EOS% (test code = EOS%) 0.1 % 0.7-5.8 MONO% (test code = MONO%) 4.5 % 4.7-12.5 NEUT# (test code = NEUT#) 5.9 /mm-3 1.6-6.1 BASO% (test code = BASO%) 0.1 % 0.1-1.2 EOS# (test code = EOS#) 0.01 /mm-3 0.04-0.36 BASO# (test code = BASO#) 0.01 /mm-3 0.01-0.08 LYMP# (test code = LYMP#) 1.1 /mm-3 1.2-3.7 LYMP% (test code = LYMP%) 14.8 % 19.3-51.7 MONO# (test code = MONO#) 0.3 /mm-3 0.2-0.9 Comp. Metabolic Panel (14) ([facility]: [id number])2017-04-10 00:00:00 Test Item Value Reference Range Comments eGFR Non (test code = 55.07 mL/min/1.73m2 eGFR Non ) BUN/CREA Ratio (test code = BUN/CREA 26.17 Ratio) BUN (test code = BUN) 28 mg/dL 7-18 eGFR (test code = eGFR >60 mL/min/1.73m2 >60 ) Total Protein (test code = Total 7.1 g/dL 6.4-8.2 Protein) Potassium (test code = Potassium) 4.2 mEq/L 3.5-5.1 ALT (test code = ALT) 19 IU/L 14-59 Chloride (test code = Chloride) 107 mEq/L 98-107 Total Bilirubin (test code = Total 0.2 mg/dL 0.2-1.0 Bilirubin) Alb/Glob Ratio (test code = Alb/Glob 1.45 Ratio) AST (test code = AST) 16 IU/L 15-37 Calcium (test code = Calcium) 9.1 mg/dL 8.5-10.1 Albumin (test code = Albumin) 4.2 g/dL 3.4-5.0 Glucose (test code = Glucose) 65 mg/dL 74-106 Alkaline Phosphatase (test code = 182 IU/L 46-116 Alkaline Phosphatase) Sodium (test code = Sodium) 140 mEq/L 136-145 Carbon dioxide (test code = Carbon 25.6 mEq/L 21.0-32.0 dioxide) Creatinine (test code = Creatinine) 1.1 mg/dL 0.6-1.0 Phosphorus, Serum ([facility]: [id number])2017-04-10 00:00:00 Test Item Value Reference Range Comments Phosphorus (test code = Phosphorus) 3.6 mg/dL 2.6-4.7 Protein+Creatinine Urine (Random) ([facility]: [id number]) (36824)2017-04-10 00:00:00 Test Item Value Reference Range Comments Urine/CFP Protein Random (test code = Urine/CFP 30.0 mg/dL Protein Random) Protein/Creat Urine Ratio (test code = 64328-3) 471.70 mg/g 0.00-200.00 Urine Creatinine Random (test code = Urine 63.6 mg/dL Creatinine Random) Cytomegalovirus [place] determined by PCR ([facility]: [id number])2017-01-10 00:00:00 Test Item Value Reference Range Comments log10 CMV Qn DNA Pl (test Test Not Performed. log10 IU/mL code = 461831) CMV Quant DNA PCR (Plasma) Positive < 200 IU/mL Negative (test code = 777884) BK Quantitation PCR ([facility]: [id number])2017-01-10 00:00:00 Test Item Value Reference Range Comments BK Quantitation PCR (test code = Negative copies/mL Negative 740410) log10 BK Qn PCR (test code = Test Not Performed. 658272) wvx43cxbt/mL Protein+Creatinine Urine (Random) ([facility]: 709042) (64620)2017-01-08 00:00:00 Test Item Value Reference Range Comments Urine/CFP Protein Random (test code = Urine/CFP 30.8 mg/dL Protein Random) Urine Creatinine Random (test code = Urine 85.5 mg/dL Creatinine Random) Protein/Creat Urine Ratio (test code = 45370-8) 360.44 mg/g 0.00-200.00 CBC with Differential/Platelets ([facility]: [id number])2017-01-08 00:00:00 Test Item Value Reference Range Comments LYMP% (test code = LYMP%) 11.6 % 19.3-51.7 RDWC (test code = RDWC) 14.9 % 11.7-14.4 NEUT# (test code = NEUT#) 6.0 /mm-3 1.6-6.1 RBC (test code = RBC) 3.87 x10-6/uL 3.93-5.22 Platelet count (test code = Platelet count) 158 x10-3/uL 182- 369 LYMP# (test code = LYMP#) 0.8 /mm-3 1.2-3.7 Hemoglobin (test code = Hemoglobin) 10.4 g/dL 11.2-15.7 MPV (test code = MPV) 10.7 fl EOS# (test code = EOS#) 0.00 /mm-3 0.04-0.36 MONO# (test code = MONO#) 0.3 /mm-3 0.2-0.9 NEUT% (test code = NEUT%) 84.8 % 34.0-71.1 EOS% (test code = EOS%) 0.0 % 0.7-5.8 WBC (test code = WBC) 7.1 x10-3/uL 4.0-10.0 Hematocrit (test code = Hematocrit) 34.2 % 34.1-44.9 MCV (test code = MCV) 88 fL 79-95 BASO% (test code = BASO%) 0.1 % 0.1-1.2 BASO# (test code = BASO#) 0.01 /mm-3 0.01-0.08 MCHC (test code = MCHC) 30.4 g/dL 32.2-35.5 MONO% (test code = MONO%) 3.5 % 4.7-12.5 MCH (test code = MCH) 26.9 pg/cell 25.6-32.2 Tacrolimus (FK506, Prograf), Blood ([facility]: [id number])2017-01-08 00:00:00 Test Item Value Reference Range Comments TIME (test code = TIME) 01/07/17 10:00pm DOSE (test code = DOSE) 8mg Tacrolimus (test code = Tacrolimus) 5.3 ng/ml Comp. Metabolic Panel (14) ([facility]: [id number])2017-01-08 00:00:00 Test Item Value Reference Range Comments Creatinine (test code = Creatinine) 1.3 mg/dL 0.6-1.0 Calcium (test code = Calcium) 8.7 mg/dL 8.5-10.1 Albumin (test code = Albumin) 3.8 g/dL 3.4-5.0 Glucose (test code = Glucose) 391 mg/dL 74-106 Potassium (test code = Potassium) 6.2 mEq/L 3.5-5.1 Alkaline Phosphatase (test code = 142 IU/L 46-116 Alkaline Phosphatase) Sodium (test code = Sodium) 135 mEq/L 136-145 Chloride (test code = Chloride) 105 mEq/L 98-107 BUN (test code = BUN) 29 mg/dL 7-18 Alb/Glob Ratio (test code = Alb/Glob 1.41 Ratio) eGFR Non (test code = 44.00 mL/min/1.73m2 eGFR Non ) Total Protein (test code = Total 6.5 g/dL 6.4-8.2 Protein) eGFR (test code = eGFR 53.25 mL/min/1.73m2 ) AST (test code = AST) 17 IU/L 15-37 Total Bilirubin (test code = Total 0.3 mg/dL 0.2-1.0 Bilirubin) Carbon dioxide (test code = Carbon 21.3 mEq/L 21.0-32.0 dioxide) ALT (test code = ALT) 25 IU/L 14-59 BUN/CREA Ratio (test code = BUN/CREA 22.48 Ratio) BK Quantitation PCR ([facility]: [id number])2016-07-24 00:00:00 Test Item Value Reference Range Comments BK Quantitation PCR (test code = 19307-2) Negative copies/mL Neg ative Cytomegalovirus Viral Load determined by PCR ([facility]: [id number])2016-07-24 00:00:00 Test Item Value Reference Range Comments CMV PCR (test code = 5000-5) Negative Negative Urine Culture, Comprehensive ([facility]: [id number]) ([id number])2016-07-20 00:00:00 Test Item Value Reference Range Comments Urine Culture,Comprehensive (test code = 630-4) Final report Tacrolimus (FK506, Prograf), Blood ([facility]: [id number])2016-07-19 00:00:00 Test Item Value Reference Range Comments DOSE (test code = DOSE) 1mg TIME (test code = TIME) 07/17/2016 9:00pm Tacrolimus (test code = Tacrolimus) 3.6 mcg/L Urinalysis, Complete ([facility]: [id number]) ([id number])2016-07-18 00:00:00 Test Item Value Reference Range Comments pH (test code = pH) 5.5 Nitrite (test code = Nitrite) Negative Negative Bilirubin (test code = Bilirubin) Negative mg/dL Negative Casts (test code = Casts) Few Hyaline /LPF None Seen GlucoseU (test code = GlucoseU) Negative mg/dL Negative Protein (test code = Protein) Negative mg/dL Crystals (test code = Crystals) None Seen None Seen Color (test code = Color) Yellow WBCU (test code = WBCU) 0-5 /HPF None Seen Blood (test code = Blood) Negative Negative Bacteria (test code = Bacteria) None Seen None Seen Epithelial (test code = Epithelial) Few /HPF None Seen RBCU (test code = RBCU) None Seen /HPF None Seen Ketone (test code = Ketone) Negative mg/dL Negative Urobiliogen (test code = Urobiliogen) 0.2 E.U./dL E.U./dL Other (test code = Other) Few Mucous Threads None Seen Leukocytes (test code = Leukocytes) Negative Negative Clarity (test code = Clarity) Clear Clear Specific Sarah (test code = Specific 1.025 Sarah) Iron and TIBC ([facility]: [id number])2016-07-18 00:00:00 Test Item Value Reference Range Comments Iron (test code = Iron) 64 mcg/dL 50-170 %SAT (test code = %SAT) 30.8 % 20.0-50.0 TIBC (test code = TIBC) 208 mcg/dL 250-450 CBC with Differential/Platelets ([facility]: [id number])2016-07-18 00:00:00 Test Item Value Reference Range Comments RBC (test code = RBC) 3.55 x10-6/uL 3.93-5.22 MONO% (test code = MONO%) 7.1 % 4.7-12.5 NEUT# (test code = NEUT#) 2.7 /mm-3 1.6-6.1 MPV (test code = MPV) 10.0 fl LYMP% (test code = LYMP%) 26.6 % 19.3-51.7 Hemoglobin (test code = Hemoglobin) 9.4 g/dL 11.2-15.7 Platelet count (test code = Platelet count) 148 x10-3/uL 182- 369 LYMP# (test code = LYMP#) 1.1 /mm-3 1.2-3.7 MCH (test code = MCH) 26.5 pg/cell 25.6-32.2 EOS% (test code = EOS%) 1.2 % 0.7-5.8 NEUT% (test code = NEUT%) 64.6 % 34.0-71.1 MCHC (test code = MCHC) 30.1 g/dL 32.2-35.5 RDWC (test code = RDWC) 14.0 % 11.7-14.4 Hematocrit (test code = Hematocrit) 31.2 % 34.1-44.9 MCV (test code = MCV) 88 fL 79-95 BASO% (test code = BASO%) 0.5 % 0.1-1.2 WBC (test code = WBC) 4.1 x10-3/uL 4.0-10.0 EOS# (test code = EOS#) 0.05 /mm-3 0.04-0.36 MONO# (test code = MONO#) 0.3 /mm-3 0.2-0.9 BASO# (test code = BASO#) 0.02 /mm-3 0.01-0.08 Vitamin D, 25-Hydroxy ([facility]: [id number]) ([id number])2016-07-18 00:00:00 Test Item Value Reference Range Comments Vitamin D (test code = Vitamin D) 26.2 ng/mL 30.0-100.0 Comp. Metabolic Panel (14) ([facility]: [id number])2016-07-18 00:00:00 Test Item Value Reference Range Comments Albumin (test code = Albumin) 3.8 g/dL 3.4-5.0 eGFR Non (test code = 54.73 mL/min/1.73m2 eGFR Non ) Total Bilirubin (test code = Total 0.3 mg/dL 0.2-1.0 Bilirubin) eGFR (test code = eGFR >60 mL/min/1.73m2 >60 ) BUN/CREA Ratio (test code = BUN/CREA 22.22 Ratio) Calcium (test code = Calcium) 8.6 mg/dL 8.5-10.1 ALT (test code = ALT) 27 IU/L 14-59 Alkaline Phosphatase (test code = 148 IU/L 46-116 Alkaline Phosphatase) Potassium (test code = Potassium) 5.0 mEq/L 3.5-5.1 Total Protein (test code = Total 6.5 g/dL 6.4-8.2 Protein) Carbon dioxide (test code = Carbon 29.6 mEq/L 21.0-32.0 dioxide) Glucose (test code = Glucose) 227 mg/dL 74-106 Chloride (test code = Chloride) 106 mEq/L 98-107 BUN (test code = BUN) 24 mg/dL 7-18 Sodium (test code = Sodium) 141 mEq/L 136-145 AST (test code = AST) 16 IU/L 15-37 Alb/Glob Ratio (test code = Alb/Glob 1.41 Ratio) Creatinine (test code = Creatinine) 1.1 mg/dL 0.6-1.0 Ferritin, Serum ([facility]: [id number])2016-07-18 00:00:00 Test Item Value Reference Range Comments Ferritin (test code = Ferritin) 948 ng/mL 8-252 Protein+Creatinine Urine (Random) ([facility]: [id number]) ([id number])2016-07-18 00:00:00 Test Item Value Reference Range Comments Urine/CFP Protein Random (test code = Urine/CFP 35.1 mg/dL Protein Random) Protein/Creat Urine Ratio (test code = 43864-4) 485.48 mg/g 0.00-200.00 Urine Creatinine Random (test code = Urine 72.3 mg/dL Creatinine Random) Assessments Condition Name Status Diagnosis Date Treating Clinici an - Type 2 diabetes mellitus with Active [place], [place] diabetic polyneuropathy E11.42 - Encounter for immunization Z23 Active [place], [place] - Essential (primary) hypertension I10 Active Ojebuoboh, [place] - Kidney transplant status Z94.0 Active [place], [place] - Essential (primary) hypertension I10 Active [place], [place] - Kidney transplant status Z94.0 Active [place], [place] - 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 [place] u[place]oh, [place] - Type 2 diabetes mellitus with Active [place], [place] diabetic polyneuropathy E11.42 - Chest pain, unspecified R07.9 Active [place], [place] Pain in right knee Active 2018-06-19 09:27:44 Replacement of total knee joint Active 2018-06-25 15:26 :08 Mass of soft tissue Active 2018-06-25 15:26:37 - Type 2 diabetes mellitus with Active [place], [place] diabetic polyneuropathy E11.42 - Type 2 diabetes mellitus with Active [place], [place] diabetic polyneuropathy E11.42 - Type 2 diabetes mellitus with Active [place], [place] diabetic polyneuropathy E11.42 - Encounter for screening mammogram Active [place], [place] for malignant neoplasm of breast Z12.31 - Essential (primary) hypertension I10 Active [place]uoboh, [place] - Kidney transplant status Z94.0 Active [place], [place] - Type 2 diabetes mellitus with Active [place], [place] diabetic polyneuropathy E11.42 - Type 2 diabetes mellitus with Active [place], [place] diabetic polyneuropathy E11.42 - Type 2 diabetes mellitus with Active [place], [place] diabetic polyneuropathy E11.42 - Encounter for screening mammogram Active [place]oboh, [place] for malignant neoplasm of breast Z12.31 - Essential (primary) hypertension I10 Active [place]oboh, [place] - Kidney transplant status Z94.0 Active [place], [place] - Urinary tract infection, site not Active [place], [place] specified N39.0 - 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 [place]eb u[place]oh, [place] Cervical spondylosis Active Non-nephrotic range proteinuria Active Cervical spondylosis Active Non-nephrotic range proteinuria Active Chronic renal disease, stage 2, mildly Active decreased glomerular filtration rate between 60-89 mL/min/1.73 square meter Hypertensive kidney disease with Active chronic kidney disease, stage 1-4 Osteoporosis Active Chronic stable angina Active Chronic renal disease, stage 2, mildly Active decreased glomerular filtration rate between 60-89 mL/min/1.73 square meter Hypertensive kidney disease with Active chronic kidney disease, stage 1-4 Osteoporosis Active Chronic stable angina Active - Type 2 diabetes mellitus with Active [place]oh, [place] diabetic polyneuropathy E11.42 - Kidney transplant status Z94.0 Active [place]uoboh, [place] - Essential (primary) hypertension I10 Active [place]oh, [place] Herniated cervical disc Active Herniated cervical disc Active Hyperkalemia Active Hyperkalemia Active Hyperkalemia Active Nerve pain Active Nerve pain Active Nerve pain Active Type II diabetes mellitus with renal Active manifestations Type II diabetes mellitus with renal Active manifestations Type II diabetes mellitus with renal Active manifestations - Type 2 diabetes mellitus with Active [place], [place] diabetic polyneuropathy E11.42 - Type 2 diabetes mellitus with Active [place], [place] diabetic polyneuropathy E11.42 - Pain in right knee M25.561 Active Oje buoboh, [place] - Kidney transplant status Z94.0 Active [place]oboh, [place] - Essential (primary) hypertension I10 Active [place]oboh, [place] - Type 2 diabetes mellitus with Active [place], [place] diabetic polyneuropathy E11.42 Hypertension Active Hypertension Active Hypertension Active Hypertension Active Hypertension Active Kidney transplant recipient Active Candidiasis, esophageal Active Kidney transplant recipient Active Candidiasis, esophageal Active Kidney transplant recipient Active Candidiasis, esophageal Active Kidney transplant recipient Active Candidiasis, esophageal Active Kidney transplant recipient Active Candidiasis, esophageal Active High risk medication use Active High risk medication use Active High risk medication use Active High risk medication use Active High risk medication use Active Secondary hyperparathyroidism of renal Active origin Anemia Active Secondary hyperparathyroidism of renal Active origin Anemia Active Secondary hyperparathyroidism of renal Active origin Anemia Active Secondary hyperparathyroidism of renal Active origin Anemia Active Secondary hyperparathyroidism of renal Active origin Anemia Active - Encounter for general adult medical Active [place]oh, [place] examination with abnormal findings Z00.01 - Essential (primary) hypertension I10 Active [place]oboh, [place] - Chronic systolic (congestive) heart Active [place]oboh, [place] failure I50.22 - Diarrhea, unspecified R19.7 Active Oj ebuoboh, [place] - Type 2 diabetes mellitus with Active [place]oh, [place] diabetic nephropathy E11.21 - Kidney transplant status Z94.0 Active [place]oh, [place] Anemia in chronic renal disease Active Anemia in chronic renal disease Active Anemia in chronic renal disease Active Anemia in chronic renal disease Active Anemia in chronic renal disease Active Anemia in chronic renal disease Active Anemia in chronic renal disease Active Anemia in chronic renal disease Active Anemia in chronic renal disease Active Anemia in chronic renal disease Active Anemia in chronic renal disease Active Anemia, chronic disease Active Anemia, chronic disease Active Anemia, chronic disease Active Anemia, chronic disease Active Anemia, chronic disease Active Anemia, chronic disease Active Anemia, chronic disease Active Anemia, chronic disease Active Anemia, chronic disease Active Anemia, chronic disease Active Anemia, chronic disease Active - Pain in left foot M79.672 Active Ojeb uoboh, [place] - Generalized abdominal pain R10.84 Active [place]oh, [place] - Diabetes with ophthalmic Active [place]u oboh, [place] manifestations, type II or unspecified type, not stated as uncontrolled 250.50 - Depression 311 Active [place]uoboh, [place] - Paraplegia 344.1 Active O[place]ebuoboh, [place] - Diabetes with ophthalmic Active [place] oboh, [place] manifestations, type II or unspecified type, not stated as uncontrolled 250.50 - Abdominal pain, right lower quadrant Active [place]oh, [place] 789.03 - Diabetes with ophthalmic Active [place] oboh, [place] manifestations, type II or unspecified type, not stated as uncontrolled 250.50 - End stage renal disease 585.6 Active [place], [place] - Diabetes with ophthalmic Active [place] oboh, [place] manifestations, type II or unspecified type, not stated as uncontrolled 250.50 - Diabetes with ophthalmic Active [place] oboh, [place] manifestations, type II or unspecified type, not stated as uncontrolled 250.50 - Diabetes with ophthalmic Active [place] oboh, [place] manifestations, type II or unspecified type, not stated as uncontrolled 250.50 - Diabetes with ophthalmic Active [place] oboh, [place] manifestations, type II or unspecified type, not stated as uncontrolled 250.50 - Diabetes with neurological Active Oje bu[place]oh, [place] manifestations, type II or unspecified type, uncontrolled 250.62 - Depression 311 Active O[place]eb[place]oboh, [place] - Diabetes with ophthalmic Active [place]u oboh, [place] manifestations, type II or unspecified type, not stated as uncontrolled 250.50 - Memory loss 780.93 Active [place]oboh, [place] Encounters Start End Encounter Admission Attending Care Care Encounter Date/Time Date/Time Type Type Clinicians Facility Department ID 2019-09-30 2019-09-30 [facility] [id number] 00:00:00 00:00:00 PA 2019-04-01 2019-04-01 [id number] 00:00:00 00:00:00 PA PA 2018-12-31 2018-12-31 [facility] [id number] 00:00:00 00:00:00 PA PA 2018-08-18 2018-08-18 [facility] 28 [id number] 00:00:00 00:00:00 PA PA 2018-08-03 2018-08-03 [facility] [id number] 00:00:00 00:00:00 PA PA 2018-06-19 2018-06-19 Memo Bright [id number] 00:00:00 00:00:00 [facility] [id number] MD [facility] [address] [place] [address], [facility] [address] [address], Ph. 2018-06-16 2018-06-16 [facility] [id number] 00:00:00 00:00:00 PA PA 2018-06-16 2018-06-16 [facility] 28 [id number] 00:00:00 00:00:00 PA PA 2018-06-12 2018-06-12 [facility] 28 [id number] 00:00:00 00:00:00 PA PA 2018-06-04 2018-06-04 [facility] 26 [id number] 00:00:00 00:00:00 PA PA 2018-03-05 2018-03-05 [facility] 26 [id number] 00:00:00 00:00:00 PA PA 2017-12-30 2017-12-30 [facility] 25 [id number] 00:00:00 00:00:00 PA PA 2017-12-29 2017-12-29 [facility] 25 [id number] 00:00:00 00:00:00 PA PA 2017-12-25 2017-12-25 [facility] 25 [id number] 00:00:00 00:00:00 PA PA 2017 2017 [facility] 25 [id number] 00:00:00 00:00:00 PA PA 2017-06-16 2017-06-16 Outpatient WALI Carab[place] [id number] 09:31:00 09:31:00 [facility] 2017-04-10 2017-04-10 Outpatient WALI Almonte [place] [id number] 10:48:00 10:48:00 [facility] 2017-02-06 2017-02-06 [facility] [id number] 00:00:00 00:00:00 PA PA 2017-01-08 2017-01-08 Outpatient WALI Caraballo [place] [id number] 13:20:00 13:20:00 [facility] 2017-01-06 2017-01-06 [facility] [id number] 00:00:00 00:00:00 PA PA 2016-12-27 2016-12-27 [facility] 22 [id number] 00:00:00 00:00:00 PA PA 2016-11-18 2016-11-18 Outpatient WALI Green [place] [id number] 16:09:00 16:09:00 [facility] 2016-11-11 2016-11-11 [facility] [id number] 00:00:00 00:00:00 PA PA 2016-11-08 2016-11-08 [facility] 22 [id number] 00:00:00 00:00:00 PA PA 2016-11-07 2016-11-07 [facility] 21 [id number] 00:00:00 00:00:00 PA PA 2016-10-16 2016-10-16 [facility] 22 [id number] 00:00:00 00:00:00 PA PA 2016-09-26 2016-09-26 [facility] 21 [id number] 00:00:00 00:00:00 PA PA 2016-07-18 2016-07-18 Outpatient WALI Claire [place] [id number] 09:50:00 09:50:00 [facility] 2016-03-14 2016-03-14 [facility] [id number] 00:00:00 00:00:00 PA PA 2016-01-29 2016-01-29 [facility] 19 [id number] 00:00:00 00:00:00 PA PA 2016-01-04 2016-01-04 [facility] 18 [id number] 00:00:00 00:00:00 PA PA 2016-01-02 2016-01-02 Outpatient WALI Guardado [place] [id number] 10:27:00 10:27:00 [facility] 2015-12-19 2015-12-19 Outpatient Jonh, [facility] [id number] 11:34:00 11:34:00 [facility] 2015-12-15 2015-12-15 [facility] [id number] 00:00:00 00:00:00 PA PA 2015-12-12 2015-12-[address] [facility] [id number] 11:08:00 11:08:00 [facility] 2015-12-05 2015-12-[address] [facility] [id number] 13:16:00 13:16:00 [facility] 2015-11-24 2015-11-24 [facility] 19 [id number] 00:00:00 00:00:00 PA PA 2015-11-21 2015-11-21 Outpatient Jonh, [facility] [id number] 10:31:00 10:31:00 [facility] 2015-11-18 2015-11-18 [facility] [id number] 00:00:00 00:00:00 PA PA 2015-10-30 2015-10-30 [facility] 18 [id number] 00:00:00 00:00:00 PA PA 2015-10-24 2015-10-24 [facility] 19 [id number] 00:00:00 00:00:00 PA PA 2015-10-10 2015-10-10 Outpatient Jonh, [facility] [id number] 11:38:00 11:38:00 [facility] 2015-09-06 2015-09-06 [facility] [id number] 00:00:00 00:00:00 PA PA 2015-06-23 2015-06-23 [facility] 18 [id number] 00:00:00 00:00:00 PA PA 2015-06-15 2015-06-15 [facility] 17 [id number] 00:00:00 00:00:00 PA PA 2015-06-06 2015-06-06 [facility] 17 [id number] 00:00:00 00:00:00 PA PA 2015-02-28 2015-02-28 [facility] 16 [id number] 00:00:00 00:00:00 PA PA 2015-01-31 2015-01-31 [facility] 16 [id number] 00:00:00 00:00:00 PA PA 2015-01-31 2015-01-31 [facility] 16 [id number] 00:00:00 00:00:00 PA PA 2014-07-12 2014-07-12 [facility] 15 [id number] 00:00:00 00:00:00 PA PA 2014-07-12 2014-07-12 [facility] 15 [id number] 00:00:00 00:00:00 PA PA 2014-07-12 2014-07-12 [facility] 14 [id number] 00:00:00 00:00:00 PA PA 2014-06-20 2014-06-20 [facility] 14 [id number] 00:00:00 00:00:00 PA PA 2014-05-27 2014-05-27 [facility] 14 [id number] 00:00:00 00:00:00 PA PA 2014-04-06 2014-04-06 [facility] 14 [id number] 00:00:00 00:00:00 PA PA 2014-03-01 2014-03-01 [facility] 14 [id number] 00:00:00 00:00:00 PA PA 2013-03-22 2013-03-22 [facility] 11 [id number] 00:00:00 00:00:00 PA PA 2013-03-11 2013-03-11 [facility] 11 [id number] 00:00:00 00:00:00 PA PA 2013-03-11 2013-03-11 [facility] 10 [id number] 00:00:00 00:00:00 PA PA 2013-02-03 2013-02-03 [facility] 11 [id number] 00:00:00 00:00:00 PA PA 2013-02-03 2013-02-03 [facility] 11 [id number] 00:00:00 00:00:00 PA PA 2013-02-03 2013-02-03 [facility] 11 [id number] 00:00:00 00:00:00 PA PA 2013-02-03 2013-02-03 [facility] 10 [id number] 00:00:00 00:00:00 PA PA 2012-12-30 2012-12-30 [facility] 10 [id number] 00:00:00 00:00:00 PA PA 2012-12-16 2012-12-16 [facility] 10 [id number] 00:00:00 00:00:00 PA PA 2012-12-16 2012-12-16 [facility] 10 [id number] 00:00:00 00:00:00 PA PA 2012-12-10 2012-12-10 [facility] 10 [id number] 00:00:00 00:00:00 PA PA 2012-10-27 2012-10-27 [facility] 10 [id number] 00:00:00 00:00:00 PA PA 2012-10-26 2012-10-26 [facility] 10 [id number] 00:00:00 00:00:00 PA PA 2012-10-23 2012-10-23 [facility] 10 [id number] 00:00:00 00:00:00 PA PA Immunizations Ordered Immunization Filled Immunization Date Status Commen ts Refusal Reason Name Name Prevnar 13 2019-04-01 Completed 10:40:00 afluria Quadrivalent 2019-04-01 Completed 10:39:00 Social History Smoking Status Start Date Stop Date Never Smoker Vital Signs Vital Name Observation Time Observation Value Comments height 2019-04-01 09:30:00 58 [in_us] weight 2019-04-01 09:30:00 138.2 [lb_av] bmi 2019-04-01 09:30:00 28.88 kg/m2 heart rate 2019-04-01 09:30:00 82 /min blood pressure systolic 2019-04-01 09:30:00 144 mm[Hg] blood pressure diastolic 2019-04-01 09:30:00 65 mm[Hg] height 2018-12-31 10:00:00 58 [in_us] weight 2018-12-31 10:00:00 142.8 [lb_av] bmi 2018-12-31 10:00:00 29.84 kg/m2 heart rate 2018-12-31 10:00:00 83 /min blood pressure systolic 2018-12-31 10:00:00 148 mm[Hg] blood pressure diastolic 2018-12-31 10:00:00 69 mm[Hg] Height 2018-06-19 00:00:00 55 [in_i] Hospital Discharge Instructions 1. Pain in right knee XR, knee, 1 or 2 view Mobic 7.5 mg tablet 2. Replacement of total kneejoint 3. Mass of soft tissue Discussion Note: None recorded. Patient educational handouts: No information available.
== END ==
LOC: WI 10:32
PROVIDERS: ATTEND Internal Medicine
DX: Z12.31 Encounter for screening mammogram for malignant neoplasm of breast (principal)
CPT/HCPCS: 77063; 77067

== ENCOUNTER 2020-06-16 14:11 | Inpatient (IN) | payer MEDICARE, OTHER ==
--- NOTE | 2020-06-16 14:32 | ER Document Report ---
ED Medical Screen (RME) - General Chief Complaint: Weakness Stated Complaint: COUGH,BACK PAIN,WEAKNESS Time Seen by Provider: 06/16/20 14:18 Primary Care Provider: DAMIAN GAMEZ MD [Primary Care Provider] - Follow up as needed Notes: Patient presents complaining of cough and generalized weakness. Patient reports a 30 pound weight loss over the past 2 weeks. Patient reports low back pain and occasional shortness of breath. Patient denies any fever. Patient tested positive for Covid last week. Patient has a history of hypertension, diabetes as well as history of kidney transplant in 2016. I have greeted and performed a rapid initial assessment of this patient. A comprehensive ED assessment and evaluation of the patient, analysis of test results and completion of the medical decision making process will be conducted by additional ED providers. TRAVEL OUTSIDE OF THE [place] IN LAST 30 DAYS: No - Related Data Allergies/Adverse Reactions: No Known Allergies Allergy (Verified 07/03/18 12:46) Past Medical History - Past Medical History Cardiac Medical History: Reports: Hx Hypercholesterolemia, Hx Hypertension, Hx Heart Murmur Denies: Hx Atrial Fibrillation, Hx Congestive Heart Failure, Hx Coronary Artery Disease, Hx Heart Attack, Hx Peripheral Vascular Disease, Hx Pulmonary Embolism Pulmonary Medical History: Reports: Hx COPD, Hx Sleep Apnea - CPAP Denies: Hx Asthma, Hx Bronchitis, Hx Pneumonia, Hx Respiratory Failure, Hx Tuberculosis Neurological Medical History: Denies: Hx Cerebrovascular Accident, Hx Seizures, Hx Parkinson's Disease Endocrine Medical History: Reports: Hx Diabetes Mellitus Type 1, Hx Diabetes Mellitus Type 2. Denies: Hx Graves' Disease, Hx Hyperthyroidism, Hx Hypothyroidism Renal/ Medical History: Reports: Hx End Stage Renal Disease - prior to transplant, Hx Hemodialysis. Denies: Hx Kidney Stones, Hx Peritoneal Dialysis Malignancy Medical History: Denies: Hx Lung Cancer GI Medical History: Musculoskeltal Medical History: Reports Hx Arthritis, Denies Hx Fibromyalgia, Denies Hx Multiple Sclerosis, Denies Hx Muscular Dystrophy, Denies Hx Systemic Lupus Erythematosus Psychiatric Medical History: Denies: Hx Dementia Traumatic Medical History: Denies: Hx Fractures Past Surgical History: Reports: Hx Abdominal Surgery - kidney transplant 2015, Hx Cholecystectomy, Hx Gastric Bypass Surgery, Hx Gynecologic Surgery - hysterectomy, Hx Hysterectomy, Hx Kidney (Renal Surgery) - right kidney trans plant in 2015, Hx Orthopedic Surgery - rt knee 04/22, Hx Vascular Surgery - Left upper arm AV fistula, Other - Left vitrectomy, left carpal tunnel release, gastric bypass 04/17/2011. Denies: Hx Appendectomy, Hx Bowel Surgery, Hx Section, Hx Coronary Artery Bypass Graft, Hx Herniorrhaphy, Hx Mastectomy, Hx Pacemaker, Hx Tonsillectomy, Hx Tubal Ligation - Immunizations Immunizations up to date: Yes Hx Diphtheria, Pertussis, Tetanus Vaccination: Yes Physical Exam - Vital signs Vitals: Temp Pulse Resp BP Pulse Ox 98.5 F 85 20 160/62 H 97 06/16/20 14:19 06/16/20 14:19 06/16/20 14:19 06/16/20 14:19 06/16/20 14:19 - Respiratory Respiratory status: No respiratory distress. No: Labored Breath sounds: Nonproductive cough Course - Vital Signs Vital signs: Temp Pulse Resp BP Pulse Ox 98.5 F 85 20 160/62 H 97 06/16/20 14:19 06/16/20 14:19 06/16/20 14:19 06/16/20 14:19 06/16/20 14:19 Doctor's Discharge - Discharge Referrals: DAMIAN GAMEZ MD [Primary Care Provider] - Follow up as needed
--- NOTE | 2020-06-16 16:55 | RADIOLOGY REPORT (SQ) ---
EXAM DESCRIPTION: CHEST SINGLE VIEW IMAGES COMPLETED DATE/TIME: 06/16/2020 4:44 pm REASON FOR STUDY: cough, hx covid COMPARISON: PA and lateral views of the chest from 01/06/2016. EXAM PARAMETERS: NUMBER OF VIEWS: One view. TECHNIQUE: An AP view of the chest was obtained. RADIATION DOSE: NA LIMITATIONS: None. FINDINGS: LUNGS AND PLEURA: Patchy bilateral parenchymal opacities. There is no sizable pleural eff usion or pneumothorax. MEDIASTINUM AND HILAR STRUCTURES: No mediastinal or hilar contour abnormality. HEART AND VASCULAR STRUCTURES: The cardiac silhouette and pulmonary vasculature are within normal farr its. BONES: No acute findings. HARDWARE: None in the chest. OTHER: Endovascular stent projecting within the left supraclavicular region and cholecystectomy clips . IMPRESSION: Patchy bilateral parenchymal opacities concerning for a multifocal pneumonia (including atypical infections such as COVID-19). TECHNICAL DOCUMENTATION: JOB ID: [id number] 2010 [employer]- All Rights Reserved Reading location - IP/workstation name: [email or web address]
[2020-06-16] MEDS ORDERED: AZITHROMYCIN INJ 500 MG VIAL IV ONE (18:20)
[2020-06-16] MEDS ORDERED: CEFTRIAXONE 1 GM/D5W RTU 1 GM/50 ML RTUPB IV ONE (18:20)
[2020-06-16] MEDS ORDERED: DEXAMETHASONE SOD PHOS INJ 10 MG/1 ML VIAL IV ONE (18:21)
[2020-06-16 18:42] LABS: ABSOLUTE LYMPHOCYTES (AUTO) 0.8 10^3/uL (0.5-4.7); ABSOLUTE MONOCYTES (AUTO) 0.3 10^3/uL (0.1-1.4); ABSOLUTE NEUT (AUTO) 4.1 10^3/uL (1.7-8.2); BASOPHILS % (AUTO) 0.4 % (0-2); EOSINOPHILS % (AUTO) 0.4 % (0-6); HEMATOCRIT 31.9 % (36.0-47.0); HEMOGLOBIN 9.8 g/dL (12.0-15.5); LYMPHOCYTES % (AUTO) 15.3 % (13-45); MEAN CORPUSCULAR HEMOGLOBIN 26.6 pg (27.0-33.4); MEAN CORPUSCULAR HGB CONC 30.7 g/dL (32.0-36.0); MEAN CORPUSCULAR VOLUME 87 fl (80-97); MONOCYTES % (AUTO) 6.1 % (3-13); PLATELET COUNT 257 10^3/uL (150-450); RED BLOOD COUNT 3.68 10^6/uL (3.72-5.28); RED CELL DISTRIBUTION WIDTH 15.1 % (11.5-14.0); SEGMENTED NEUTROPHILS % (AUTO) 77.8 % (42-78); TOTAL CELLS COUNTED % (AUTO) 100 %; WHITE BLOOD COUNT 5.2 10^3/uL (4.0-10.5)
[2020-06-16 19:01] LABS: ALBUMIN 4.2 g/dL (3.5-5.0); ALKALINE PHOSPHATASE 144 U/L (38-126); ANION GAP 13 (5-19); ASPARTATE AMINO TRANSFERASE 23 U/L (14-36); BILIRUBIN,DIRECT 0.3 mg/dL (0.0-0.4); BILIRUBIN,TOTAL 0.6 mg/dL (0.2-1.3); BLOOD UREA NITROGEN 36 mg/dL (7-20); CALCIUM 9.5 mg/dL (8.4-10.2); CARBON DIOXIDE 20 mmol/L (22-30); CHLORIDE 99 mmol/L (98-107); GLUCOSE 355 mg/dL (75-110); POTASSIUM 4.9 mmol/L (3.6-5.0); TOTAL PROTEIN 7.7 g/dL (6.3-8.2)
[2020-06-16 19:05] LABS: C-REACTIVE PROTEIN 46.1 mg/L (<10.0)
[2020-06-16] MEDS ORDERED: NORMAL SALINE 1000 ML 1,000 ML IV ONE (21:31)
--- NOTE | 2020-06-16 22:06 | ER Document Report ---
ED General - General Chief Complaint: Cough Stated Complaint: COUGH,BACK PAIN,WEAKNESS Time Seen by Provider: 06/16/20 14:18 TRAVEL OUTSIDE OF THE [place] IN LAST 30 DAYS: No - HPI Notes: Patient is a 64-year-old female with a past medical history of renal transplant in 2016, diabetes who presents with multiple complaints. Patient states she was diagnosed with Covid on June 09. She states she has had a cough that is occasionally productive of green sputum. She has been having headaches. She mentions diarrhea. No abdominal pain. She has been having off and on left sided back pain since she was diagnosed with covid. She called her repairer art objects, Dr. Calix, who recommended she go to the ER to have her kidneys evaluated. Patient also mentions she has not made urine since 11 AM. She states she has been drinking water. She is unsure if she is dehydrated. She had her kidney transplant done at [facility]. - Related Data Allergies/Adverse Reactions: No Known Allergies Allergy (Verified 07/03/18 12:46) Past Medical History - General Information source: Patient - Social History Smoking Status: Never Smoker Chew tobacco use (# tins/day): No Frequency of alcohol use: None Drug Abuse: None Family History: Reviewed & Not Pertinent - Past Medical History Cardiac Medical History: Reports: Hx Hypercholesterolemia, Hx Hypertension, Hx Heart Murmur Denies: Hx Atrial Fibrillation, Hx Congestive Heart Failure, Hx Coronary Artery Disease, Hx Heart Attack, Hx Peripheral Vascular Disease, Hx Pulmonary Embolism Pulmonary Medical History: Reports: Hx COPD, Hx Sleep Apnea - CPAP Denies: Hx Asthma, Hx Bronchitis, Hx Pneumonia, Hx Respiratory Failure, Hx Tuberculosis Neurological Medical History: Denies: Hx Cerebrovascular Accident, Hx Seizures, Hx Parkinson's Disease Endocrine Medical History: Reports: Hx Diabetes Mellitus Type 1, Hx Diabetes Mellitus Type 2. Denies: Hx Graves' Disease, Hx Hyperthyroidism, Hx Hypothyroidism Renal/ Medical History: Reports: Hx End Stage Renal Disease - prior to tr ansplant, Hx Hemodialysis. Denies: Hx Kidney Stones, Hx Peritoneal Dialysis Malignancy Medical History: Denies: Hx Lung Cancer GI Medical History: Musculoskeletal Medical History: Reports Hx Arthritis, Denies Hx Fibromyalgia, Denies Hx Multiple Sclerosis, Denies Hx Muscular Dystrophy, Denies Hx Systemic Lupus Erythematosus Psychiatric Medical History: Denies: Hx Dementia Traumatic Medical History: Denies: Hx Fractures Past Surgical History: Reports: Hx Abdominal Surgery - kidney transplant 2016, Hx Cholecystectomy, Hx Gastric Bypass Surgery, Hx Gynecologic Surgery - hysterectomy, Hx Hysterectomy, Hx Kidney (Renal Surgery) - right kidney transplant in 2016, Hx Orthopedic Surgery - rt knee 04/22, Hx Vascular Surgery - Left upper arm AV fistula, Other - Left vitrectomy, left carpal tunnel release, gastric bypass 04/17/2011. Denies: Hx Appendectomy, Hx Bowel Surgery, Hx Section, Hx Coronary Artery Bypass Graft, Hx Herniorrhaphy, Hx Mastectomy, Hx Pacemaker, Hx Tonsillectomy, Hx Tubal Ligation - Immunizations Immunizations up to date: Yes Hx Diphtheria, Pertussis, Tetanus Vaccination: Yes Hx Pneumococcal Vaccination: 03/07/14 Review of Systems - Review of Systems Notes: CONSTITUTIONAL: Positive for fever and fatigue. SKIN: No rash. HENT: No congestion, ear pain, or sore throat. EYES: No recent vision problems or eye pain. CARDIOVASCULAR: No chest pain or edema. RESPIRATORY: Positive for cough. GASTROINTESTINAL: No abdominal pain. No vomiting. GENITOURINARY: Decreased urination. MUSCULOSKELETAL: No joint pain or swelling. Positive for intermittent back pain. NEUROLOGIC: No seizures. No focal weakness or sensory changes. Positive for headaches. HEMATOLOGIC: No unusual bruising or bleeding. PSYCHIATRIC: No depression or anxiety. Physical Exam - Vital signs Vitals: Temp Pulse Resp BP Pulse Ox 98.5 F 85 20 160/62 H 97 06/16/20 14:19 06/16/20 14:19 06/16/20 14:19 06/16/20 14:19 06/16/20 14:19 - General General appearance: Appears well Notes: VITAL SIGNS: Within normal limits. GENERAL: No acute distress, non-toxic appearance. HEAD: Normal with no signs of head trauma. EYES: EOMI, conjunctiva normal, no discharge. EARS: Hearing grossly intact. NOSE: Normal. NECK: Normal range of motion, no tenderness, supple, no lymphadenopathy, No adenopathy, no JVD. CHEST: Clear breath sounds bilaterally. CARDIAC: Regular rate and rhythm. VASCULAR: No Edema. ABDOMEN: Normal and soft with no tenderness LYMPATHTIC: No lymphadenopathy noted. MUSCULOSKELETAL: Good range of motion of all major joints. No Costovertebral tenderness. NEUROLOGICAL: Alert and oriented x 3. No focal sensory or strength deficits. Speech normal. Follows commands appropriately. PSYCHIATRIC: Normal Affect, judgement and mood. SKIN: Normal appearance with no rashes or lesions. Course - Re-evaluation Re-evalutation: 06/16/20 22:26 Patient has worsening of her renal function from previous. I did discuss with Dr. Dodson who is on-call for Dr. Baires. He recommended we bring her into the Covid floor and hydrate her. Patient did have a D-dimer ordered from triage. It is elevated. I do suspect this is from Covid. She is on room air with O2 saturations 98% and in no acute distress. I believe it would be detrimental to the patient and her renal function to obtain a CTA to rule out PE with contrast as she does have a kidney transplant and is in no respiratory distress. I did discuss this with the admitting doctor and he is in agreement that likely the D-dimer is high from her Covid diagnosis. After a liter of fluids, patient was able to make urine. The urinalysis returned as positive for a UTI after she was admitted to the floor. She denied any burning or urinary symptoms on my initial evaluation. She also had no costovertebral tenderness on exam. I do not suspect a kidney stone. I did update the hospitalist about this. She was given Rocephin from triage in the ER which will cover the UTI. I did order a urine culture. 06/17/20 02:30 - Vital Signs Vital signs: Temp Pulse Resp BP Pulse Ox 98.8 F 95 18 177/53 H 97 06/16/20 23:44 06/17/20 00:57 06/16/20 23:44 06/16/20 23:44 06/16/20 23:44 - Laboratory Results Result Diagrams: 06/16/20 18:23 06/16/20 18:23 Laboratory Results Interpreted: 06/16/20 06/16/20 06/16/20 18:23 18:23 18:23 RBC 3.68 L Hgb 9.8 L Hct 31.9 L MCH 26.6 L MCHC 30.7 L RDW 15.1 H D-Dimer 0.80 H Sodium 131.8 L Carbon Dioxide 20 L BUN 36 H Creatinine 1.48 H Est GFR ( Amer) 43 L Est GFR (MDRD) Non-Af 35 L Glucose 355 H Ferritin Alkaline Phosphatase 144 H C-Reactive Protein 06/16/20 18:23 RBC Hgb Hct MCH MCHC RDW D-Dimer Sodium Carbon Dioxide BUN Creatinine Est GFR ( Amer) Est GFR (MDRD) Non-Af Glucose Ferritin 1480.00 H Alkaline Phosphatase C-Reactive Protein 46.1 H Critical Laboratory Results Reviewed: No Critical Results - Radiology Results Critical Radiology Results Reviewed: No Critical Results - EKG Interpretation by Me EKG shows normal: Sinus rhythm Rate: Normal Rhythm: NSR When compared to previous EKG there are: No significant change Additional EKG results interpreted by me: 06/16/20 22:50 Sinus rhythm at a rate of 91. QTc 434. No acute ST changes. EKG is similar to previous. Discharge - Discharge Clinical Impression: COVID-19, Dehydration, Renal transplant recipient Urinary tract infection Qualifiers: Urinary tract infection type: site unspecified Hematuria presence: without hematuria Qualified Code(s): N39.0 - Urinary tract infection, site not specified Condition: Stable Disposition: ADMITTED INPATIENT Admitting Provider: [facility] Admitted: Medical Floor
[2020-06-16 23:25] LABS: APPEARANCE,URINE CLOUDY; BILIRUBIN,URINE NEGATIVE (NEGATIVE); COLOR,URINE YELLOW; GLUCOSE, URINE >=500 mg/dL (NEGATIVE); KETONES,URINE TRACE mg/dL (NEGATIVE); LEUKOCYTE ESTERASE,URINE LARGE (NEGATIVE); NITRITE,URINE NEGATIVE (NEGATIVE); PROTEIN,URINE 30 mg/dL (NEGATIVE); URINE SPECIFIC GRAVITY 1.006; UROBILINOGEN,URINE NEGATIVE mg/dL (<2.0)
[2020-06-17] MEDS ORDERED: INSULIN LISPRO 100 UNIT/ML 3 ML VIAL ONE (00:09)
[2020-06-17] MEDS ORDERED: DEXTROSE 50%-WATER SYRINGE 25 GM/50 ML DOSE IV PRN (00:30)
[2020-06-17] MEDS ORDERED: GLUCAGON,HUMAN RECOMB 1 MG INJ IM PRN (00:30)
[2020-06-17] MEDS ORDERED: DEXTROSE 50%-WATER SYRINGE 12.5 GM/25 ML DOSE IV PRN (00:30)
[2020-06-17] MEDS ORDERED: DEXTROSE 40% GEL 15 GM TUBE PO PRN (00:30)
[2020-06-17] MEDS ORDERED: DEXTROSE 40% GEL 15 GM TUBE X 2 PO PRN (00:30)
[2020-06-17] MEDS ORDERED: INSULIN LISPRO 100 UNIT/ML 3 ML VIAL SUBCUT ONE (00:45)
[2020-06-17] MEDS: NORMAL SALINE 1000 ML 1,000 ML IV PRN ×2 (00:46→10:42)
[2020-06-17] MEDS ORDERED: ACETAMINOPHEN 325 MG TABLET ONE (00:55)
[2020-06-17] MEDS: ACETAMINOPHEN 325 MG TABLET PO PRN (01:00)
[2020-06-17] MEDS: INSULIN LISPRO 100 UNIT/ML 3 ML VIAL SUBCUT SCH ×4 (08:42→21:48)
[2020-06-17] MEDS ORDERED: CHOLECALCIFEROL (D3) 400 UNIT TABLET PO SCH (11:00)
[2020-06-17] MEDS: ZINC SULFATE 220 MG CAPSULE PO SCH (12:49)
[2020-06-17] MEDS: DEXAMETHASONE SOD PHOS INJ 10 MG/1 ML VIAL IV SCH (12:50)
--- NOTE | 2020-06-17 13:48 | PDOC H&P ---
History of Present Illness Admission Date/PCP: 06/16/20 22:33 DAMIAN GAMEZ MD Patient complains of: Cough, lack of urination History of Present Illness: MONIQUE CRUZ is a 64 year old female patient of Dr. Gamez who was instructed to present to the ED for further evaluation by her lead generation marketing manager, 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 She denied any associated nausea, vomiting, or abdominal pain. She reported associated intermittent left sided back pain and lack of urination for since 11 am on the day of her presentation. She is a recipient of kidney transplant. She claimed no change in her adequate water intake. She denied any significant fever or chills. Her initial ED evaluation was significant for renal indices suggestive of pre- renal azotemia, hyperglycemia, and abnormal urinalysis suggestive of possible infection. Her morbidities are as listed below. She was advised hospitalization for further evaluation and management. Past Medical History Cardiac Medical History: Reports: Hyperlipidema, Hypertension, Heart Murmur Denies: Atrial Fibrillation, Congestive Heart Failure, Coronary Artery Disease, Myocardial Infarction, Peripheral Vascular Disease, Pulmonary Embolism Pulmonary Medical History: Reports: Chronic Obstructive Pulmonary Disease (COPD), Sleep Apnea - CPAP Denies: Asthma, Bronchitis, Pneumonia, Respiratory Failure, Tuberculosis Neurological Medical History: Denies: Seizures Endocrine Medical History: Reports: Diabetes Mellitus Type 1, Diabetes Mellitus Type 2 Denies: Hyperthyroidism, Hypothyroidism Renal/ Medical History: Reports: End Stage Renal Disease - prior to transplant Malignancy Medical History: Denies: Lung Cancer GI Medical History: Musculoskeltal Medical History: Reports: Arthritis Denies: Fibromyalgia Psychiatric Medical History: Denies: Dementia, Depression Hematology: Reports: Anemia Past Surgical History Past Surgical History: Reports: Cholecystectomy, Gastric Bypass Surgery, Hysterectomy, Orthopedic Surgery - rt knee 04/22, Vascular Surgery - Left upper arm AV fistula, Other - Left vitrectomy, left carpal tunnel release, gastric bypass 04/17/2011 Denies: Amputation, Appendectomy, Section, Coronary Artery Bypass Graft, Herniorrhaphy, Mastectomy, Pacemaker, Tonsillectomy, Tubal Ligation Social History Smoking Status: Never Smoker Electronic Cigarette use?: No Frequency of Alcohol Use: None Hx Recreational Drug Use: No Hx Prescription Drug Abuse: No - Advance Directive Resuscitation Status: Full Code Family History Family History: Reviewed & Not Pertinent Parental Family History Reviewed: Yes Children Family History Reviewed: Yes Sibling(s) Family History Reviewed.: Yes Medication/Allergy Home Medications: Metoprolol Tartrate [Lopressor] 100 mg PO Q12 10/17/15 Tacrolimus [Prograf] 4 mg PO Q12 10/17/15 Mycophenolate Sodium [Myfortic 180 mg Tablet.dr] 360 mg PO Q12 04/15/17 Aspirin [Aspirin EC] 81 mg PO DAILY 02/11/18 Insulin Aspart [Novolog Flexpen] 0 units IM .SLIDING SCALE 02/11/18 Liraglutide [Victoza 2-Chris] 1.2 mg SQ DAILY 02/11/18 Ergocalciferol (Vitamin D2) [Vitamin D2] 50,000 unit PO SANCHEZ@1000 06/17/20 Allergies/Adverse Reactions: No Known Allergies Allergy (Verified 07/03/18 12:46) Review of Systems Constitutional: ABSENT: chills, fever(s), headache(s), weight gain, weight loss Eyes: ABSENT: visual disturbances Ears: ABSENT: hearing changes Nose, Mouth, and Throat: PRESENT: headache(s) Cardiovascular: ABSENT: chest pain, dyspnea on exertion, edema, orthropnea, palpitations Respiratory: PRESENT: cough, sputum. ABSENT: hemoptysis Gastrointestinal: ABSENT: abdominal pain, constipation, diarrhea, hematemesis, hematochezia, nausea, vomiting Genitourinary: PRESENT: other - no voinding for several hours. ABSENT: dysuria, hematuria Musculoskeletal: ABSENT: joint swelling Integumentary: ABSENT: rash, wounds Neurological: ABSENT: abnormal gait, abnormal speech, confusion, dizziness, focal weakness, syncope Psychiatric: ABSENT: anxiety, depression, homidical ideation, suicidal ideation Endocrine: ABSENT: cold intolerance, heat intolerance, polydipsia, polyuria Hematologic/Lymphatic: ABSENT: easy bleeding, easy bruising, lymphadenopathy Allergic/Immunologic: ABSENT: seasonal rhinorrhea Physical Exam Vital Signs: Temp Pulse Resp BP Pulse Ox 98.1 F 77 18 169/58 H 97 06/17/20 08:41 06/17/20 08:41 06/17/20 08:41 06/17/20 08:41 06/17/20 08:41 Intake & Output 06/16/20 06/17/20 06/18/20 06:59 06:59 06:59 Intake Total 1300 993 Balance 1300 993 Weight 57 kg General appearance: PRESENT: no acute distress Head exam: PRESENT: atraumatic, normocephalic Eye exam: PRESENT: conjunctiva pink, EOMI, PERRLA. ABSENT: scleral icterus Ear exam: PRESENT: normal external ear exam Mouth exam: PRESENT: moist, tongue midline Neck exam: PRESENT: full ROM. ABSENT: carotid bruit, JVD, lymphadenopathy, thyromegaly Respiratory exam: PRESENT: clear to auscultation brennan Cardiovascular exam: PRESENT: RRR, +S1, +S2. ABSENT: diastolic murmur, rubs, systolic murmur Vascular exam: PRESENT: normal capillary refill. ABSENT: pallor GI/Abdominal exam: PRESENT: normal bowel sounds, soft. ABSENT: distended, guarding, mass, organolmegaly, rebound, tenderness Rectal exam: PRESENT: deferred Extremities exam: ABSENT: pedal edema Neurological exam: PRESENT: alert, awake, oriented to person, oriented to place, oriented to time, oriented to situation, CN II-XII grossly intact. ABSENT: motor sensory deficit Psychiatric exam: PRESENT: appropriate affect, normal mood. ABSENT: homicidal ideation, suicidal ideation Skin exam: PRESENT: dry, intact, warm. ABSENT: cyanosis, rash Results Laboratory Results: 06/16/20 18:23 06/16/20 18:23 06/16/20 06/16/20 06/16/20 18:23 18:23 18:23 WBC 5.2 RBC 3.68 L Hgb 9.8 L Hct 31.9 L MCV 87 MCH 26.6 L MCHC 30.7 L RDW 15.1 H Plt Count 257 Seg Neutrophils % 77.8 Sodium 131.8 L Potassium 4.9 Chloride 99 Carbon Dioxide 20 L Anion Gap 13 BUN 36 H Creatinine 1.48 H Est GFR ( Amer) 43 L Glucose 355 H Calcium 9.5 Ferritin 1480.00 H Total Bilirubin 0.6 AST 23 Alkaline Phosphatase 144 H C-Reactive Protein 46.1 H Total Protein 7.7 Albumin 4.2 Urine Color Urine Appearance Urine pH Ur Specific Mccomb Urine Protein Urine Glucose (UA) Urine Ketones Urine Blood Urine Nitrite Ur Leukocyte Esterase Urine WBC (Auto) Urine RBC (Auto) 06/16/20 22:50 WBC RBC Hgb Hct MCV MCH MCHC RDW Plt Count Seg Neutrophils % Sodium Potassium Chloride Carbon Dioxide Anion Gap BUN Creatinine Est GFR ( Amer) Glucose Calcium Ferritin Total Bilirubin AST Alkaline Phosphatase C-Reactive Protein Total Protein Albumin Urine Color YELLOW Urine Appearance CLOUDY Urine pH 5.0 Ur Specific M[place]omb 1.006 Urine Protein 30 H Urine Glucose (UA) >=500 H Urine Ketones TRACE H Urine Blood SMALL H Urine Nitrite NEGATIVE Ur Leukocyte Esterase LARGE H Urine WBC (Auto) >182 Urine RBC (Auto) 5 06/16/20 18:23 Troponin I < 0.012 Impressions: Chest X-Ray 06/16/20 14:29 IMPRESSION: Patchy bilateral parenchymal opacities concerning for a multifocal pneumonia (including atypical infections such as COVID-19). Assessment & Plan - Diagnosis (1) COVID-19 Is this a current diagnosis for this admission?: Yes Plan: See covering admitting attending physician orders for details about care plan. (2) Dehydration Is this a current diagnosis for this admission?: Yes Plan: See covering admitting attending physician orders for details about care plan. (3) Abnormal finding on urinalysis Is this a current diagnosis for this admission?: Yes Plan: See covering admitting attending physician orders for details about care plan. (4) Type 2 diabetes mellitus Qualifiers: Diabetes mellitus exterminator helper termite insulin use: with exterminator helper termite use Diabetes mellitus complication status: with kidney complications Diabetes mellitus complication detail: with other kidney complication Qualified Code(s): E11.29 - Type 2 diabetes mellitus with other diabetic kidney complication; Z79.4 - terminal manager (current) use of insulin; Z79.4 - group home (current) use of insulin; Z79.4 - group home (current) use of insulin; Z79.4 - terminal manager (current) use of insulin Is this a current diagnosis for this admission?: Yes Plan: See covering admitting attending physician orders for details about care plan. (5) Hypertension Qualifiers: Hypertension type: essential hypertension Qualified Code(s): I10 - Es sential (primary) hypertension Is this a current diagnosis for this admission?: Yes Plan: See covering admitting attending physician orders for details about care plan. (6) Renal transplant recipient Is this a current diagnosis for this admission?: Yes Plan: See covering admitting attending physician orders for details about care plan. (7) Anemia Qualifiers: Anemia type: other cause Is this a current diagnosis for this admission?: Yes Plan: See covering admitting attending physician orders for details about care plan. - Time Time Spent: 50 to 70 Minutes Medications reviewed and adjusted accordingly: Yes Anticipated Discharge Disposition: Home, Self Care Anticipated Discharge Timeframe: within 72 hours - Inpatient Certification Based on my medical assessment, after consideration of the patient's comorbidities, presenting symptoms, or acuity I expect that the services needed warrant INPATIENT care.: Yes I certify that my determination is in accordance with my understanding of Medicare's requirements for reasonable and necessary INPATIENT services [42 CFR 412.3e].: Yes Medical Necessity: Significant Comorbidiites Make Outpatient Treatment Too Risky, Need Close Monitoring Due to Risk of Patient Decompensation, Need For IV Fluids, Need For Continuous Telemetry Monitoring, Need for IV Antibiotics, Risk of Complication if Not Cared For in Hospital, Risk of Diagnosis Which Will Require Inpatient Eval/Care/Monitoring Post Hospital Care: D/C Department Chairperson Documentation - Plan Summary Plan Summary: See covering admitting attending physician orders for details about care plan.
--- NOTE | 2020-06-17 14:56 | EKG REPORT ---
SEVERITY:- OTHERWISE NORMAL ECG - SINUS RHYTHM BORDERLINE LEFT AXIS DEVIATION : Confirmed by: Hina Garcia 17-Jun-2020 14:56:05
[2020-06-17] MEDS ORDERED: METOPROLOL TARTRATE 100 MG TABLET PO ONE (16:00)
[2020-06-17] MEDS ORDERED: TACROLIMUS ANHYDROUS 1 MG CAPSULE PO ONE (16:00)
[2020-06-17] MEDS: AZITHROMYCIN 500 MG in DEXTROSE 5%-WATER 250 ML IV SCH (17:05)
[2020-06-17] MEDS: ASCORBIC ACID 500 MG TABLET PO SCH (17:08)
[2020-06-17] MEDS: TACROLIMUS ANHYDROUS 1 MG CAPSULE PO SCH (21:45)
[2020-06-17] MEDS: METOPROLOL TARTRATE 100 MG TABLET PO SCH (21:45)
[2020-06-17] MEDS: CEFTRIAXONE 1 GM/D5W RTU 1 GM/50 ML RTUPB IV SCH (21:45)
[2020-06-17] MEDS ORDERED: MYCOPHENOLATE SODIUM 180 MG PO SCH (22:00)
[2020-06-17] MEDS ORDERED: METOPROLOL TARTRATE 50 MG TABLET PO SCH (22:00)
[2020-06-18] MEDS: NORMAL SALINE 1000 ML 1,000 ML IV PRN ×2 (01:00→16:45)
[2020-06-18] MEDS ORDERED: HYDRALAZINE HCL INJ/PF 20 MG/1 ML SDV ONE (05:00)
[2020-06-18] MEDS: HYDRALAZINE HCL INJ/PF 20 MG/1 ML SDV IV PRN (05:04)
[2020-06-18 06:16] LABS: HEMATOCRIT 29.5 % (36.0-47.0); HEMOGLOBIN 9.4 g/dL (12.0-15.5); MEAN CORPUSCULAR HGB CONC 31.7 g/dL (32.0-36.0); MEAN CORPUSCULAR VOLUME 85 fl (80-97); PLATELET COUNT 235 10^3/uL (150-450); RED BLOOD COUNT 3.46 10^6/uL (3.72-5.28); WHITE BLOOD COUNT 6.5 10^3/uL (4.0-10.5)
[2020-06-18 06:34] LABS: ALBUMIN 3.1 g/dL (3.5-5.0); ALKALINE PHOSPHATASE 124 U/L (38-126); ANION GAP 10 (5-19); ASPARTATE AMINO TRANSFERASE 21 U/L (14-36); BILIRUBIN,DIRECT 0.3 mg/dL (0.0-0.4); BILIRUBIN,TOTAL 0.4 mg/dL (0.2-1.3); BLOOD UREA NITROGEN 25 mg/dL (7-20); CALCIUM 9.2 mg/dL (8.4-10.2); CARBON DIOXIDE 17 mmol/L (22-30); CHLORIDE 105 mmol/L (98-107); GLUCOSE 338 mg/dL (75-110); POTASSIUM 5.3 mmol/L (3.6-5.0); TOTAL PROTEIN 5.8 g/dL (6.3-8.2)
[2020-06-18] MEDS: INSULIN LISPRO 100 UNIT/ML 3 ML VIAL SUBCUT SCH ×4 (08:52→21:33)
[2020-06-18] MEDS: ASCORBIC ACID 500 MG TABLET PO SCH ×2 (09:54→17:03)
[2020-06-18] MEDS: ASPIRIN 81 MG TABLET, ENT COATED PO SCH (09:54)
[2020-06-18] MEDS: ERGOCALCIFEROL (VITAMIN D2) 50000 UNIT (1.25 MG) CAPSULE PO SCH (09:54)
[2020-06-18] MEDS: DEXAMETHASONE SOD PHOS INJ 10 MG/1 ML VIAL IV SCH (09:54)
[2020-06-18] MEDS: ZINC SULFATE 220 MG CAPSULE PO SCH (09:54)
[2020-06-18] MEDS: METOPROLOL TARTRATE 100 MG TABLET PO SCH ×2 (09:54→21:10)
[2020-06-18] MEDS ORDERED: LIRAGLUTIDE 0.6 MG/0.1 ML SUBCUT SCH (10:00)
[2020-06-18] MEDS: TACROLIMUS ANHYDROUS 1 MG CAPSULE PO SCH ×2 (11:06→21:10)
[2020-06-18] MEDS ORDERED: ONDANSETRON HCL INJ/PF 4 MG/2 ML SDV ONE (12:28)
[2020-06-18] MEDS: ACETAMINOPHEN 325 MG TABLET PO PRN (12:45)
[2020-06-18] MEDS ORDERED: ONDANSETRON HCL INJ/PF 4 MG/2 ML SDV IV PRN (12:54)
[2020-06-18] MEDS ORDERED: MAG HYDROX/AL HYDROX/SIMETH SUSP 30 ML UDCUP PO PRN (14:50)
--- NOTE | 2020-06-18 15:43 | PDOC PROGRESS REPORT ---
Subjective Date:: 06/18/20 Subjective:: Patient's blood pressure remain elevated. Complain about epigastric pain with as sociated nausea. No chest pain or difficulty with breathing. No fever or chills. Reason For Visit: COVID-19 PNEUMONIA, DEHYDRATION, HISTORY OF RENAL Physical Exam Vital Signs: Temp Pulse Resp BP Pulse Ox 97.4 F 68 20 148/51 H 99 06/18/20 12:18 06/18/20 12:18 06/18/20 12:18 06/18/20 12:18 06/18/20 12:18 Intake & Output 06/17/20 06/18/20 06/19/20 06:59 06:59 06:59 Intake Total 1300 3872 Output Total 1650 Balance 1300 2222 Weight 57 kg 59.6 kg General appearance: PRESENT: no acute distress Eye exam: PRESENT: conjunctiva pink. ABSENT: scleral icterus Respiratory exam: PRESENT: clear to auscultation brennan Cardiovascular exam: PRESENT: RRR, +S1, +S2. ABSENT: diastolic murmur, rubs, systolic murmur Vascular exam: ABSENT: pallor GI/Abdominal exam: PRESENT: normal bowel sounds, soft, tenderness - epigastric region. ABSENT: guarding, rebound Extremities exam: ABSENT: pedal edema Neurological exam: PRESENT: alert, awake Psychiatric exam: PRESENT: appropriate affect, normal mood. ABSENT: homicidal ideation, suicidal ideation Skin exam: PRESENT: dry, warm Results Laboratory Results: 06/18/20 05:35 06/18/20 05:35 06/18/20 06/18/20 05:35 05:35 WBC 6.5 RBC 3.46 L Hgb 9.4 L Hct 29.5 L MCV 85 MCH 27.0 MCHC 31.7 L RDW 15.0 H Plt Count 235 Sodium 131.5 L Potassium 5.3 H Chloride 105 Carbon Dioxide 17 L Anion Gap 10 BUN 25 H Creatinine 0.90 Est GFR ( Amer) > 60 Glucose 338 H Calcium 9.2 Total Bilirubin 0.4 AST 21 Alkaline Phosphatase 124 Total Protein 5.8 L Albumin 3.1 L 06/16/20 22:50 Clean Catch Midstream Urine Culture - Final 3,000 col/ml 06/16/20 18:23 Troponin I < 0.012 Impressions: Chest X-Ray 06/16/20 14:29 IMPRESSION: Patchy bilateral parenchymal opacities concerning for a multifocal pneumonia (including atypical infections such as COVID-19). Assessment & Plan - Diagnosis (1) COVID-19 Is this a current diagnosis for this admission?: Yes (2) Dehydration Is this a current diagnosis for this admission?: Yes (3) Abnormal finding on urinalysis Is this a current diagnosis for this admission?: Yes (4) Type 2 diabetes mellitus Qualifiers: Diabetes mellitus detention insulin use: with extermination supervisor use Diabetes m ellitus complication status: with kidney complications Diabetes mellitus complication detail: with other kidney complication Qualified Code(s): E11.29 - Type 2 diabetes mellitus with other diabetic kidney complication; Z79.4 - half-way (current) use of insulin Is this a current diagnosis for this admission?: Yes (5) Hypertension Qualifiers: Hypertension type: essential hypertension Qualified Code(s): I10 - Essential (primary) hypertension Is this a current diagnosis for this admission?: Yes (6) Renal transplant recipient Is this a current diagnosis for this admission?: Yes (7) Anemia Qualifiers: Anemia type: other cause Is this a current diagnosis for this admission?: Yes - Time Time Spent with patient: 25-34 minutes Level of Care: IMCU Medications reviewed and adjusted accordingly: Yes Anticipated discharge: Home with Homehealth Anticipated DC Timeframe: within 72 hours - Inpatient Certification Based on my medical assessment, after consideration of the patient's comorbidities, presenting symptoms, or acuity I expect that the services needed warrant INPATIENT care.: Yes I certify that my determination is in accordance with my understanding of Medicare's requirements for reasonable and necessary INPATIENT services [42 CFR 412.3e].: Yes Medical Necessity: Significant Comorbidiites Make Outpatient Treatment Too Risky, Need Close Monitoring Due to Risk of Patient Decompensation, Need For IV Fluids, Need For Continuous Telemetry Monitoring, Need for IV Antibiotics, Risk of Complication if Not Cared For in Hospital, Risk of Diagnosis Which Will Require Inpatient Eval/Care/Monitoring Post Hospital Care: D/C Front Tender Documentation - Plan Summary Plan Summary: See covering attending physician orders about details for care plan.
[2020-06-18] MEDS: PANTOPRAZOLE SODIUM 40 MG TABLET.DR PO SCH (16:43)
[2020-06-18] MEDS: AZITHROMYCIN 500 MG in DEXTROSE 5%-WATER 250 ML IV SCH (17:05)
[2020-06-18] MEDS: CEFTRIAXONE 1 GM/D5W RTU 1 GM/50 ML RTUPB IV SCH (21:10)
--- NOTE | 2020-06-18 23:52 | CDI QUERY ---
CDI Query CDI Review: We are seeking further clarification of documentation to reflect the severity of illness of your patient. Per H&P: persistent productive cough with greenish sputum, headache, diarrhea, and recent diagnosis with COVID-19 positive status on 06/09/2020 Chest X-Ray 06/16/20 14:29 IMPRESSION: Patchy bilateral parenchymal opacities concerning for a multifocal pneumonia (including atypical infections such as COVID-19). Per Progress Notes: Reason For Visit: COVID-19 PNEUMONIA, DEHYDRATION, HISTORY OF RENAL Based on your medical judgement, can you further clarify in the Progress Notes and carry through to the Discharge Summary: Pneumonia 2/2 to COVID - 19 Pneumonia 2/2 to COVID - 19 ruled out Pneumonia 2/2 to COVID - 19 resolved Unable to determine Other Thank you for your consideration. SAVI MeyerN RN Clinical Gang Vibrator Operator Physician Advisor [email or web address]
[2020-06-19] MEDS: PANTOPRAZOLE SODIUM 40 MG TABLET.DR PO SCH (05:22)
[2020-06-19] MEDS: NORMAL SALINE 1000 ML 1,000 ML IV PRN ×2 (05:23→14:56)
[2020-06-19] MEDS: HYDRALAZINE HCL INJ/PF 20 MG/1 ML SDV IV PRN ×2 (06:14→23:16)
[2020-06-19] MEDS: INSULIN LISPRO 100 UNIT/ML 3 ML VIAL SUBCUT SCH ×4 (08:36→21:43)
[2020-06-19] MEDS: METOPROLOL TARTRATE 100 MG TABLET PO SCH ×2 (09:56→21:43)
[2020-06-19] MEDS: DEXAMETHASONE SOD PHOS INJ 10 MG/1 ML VIAL IV SCH (09:57)
[2020-06-19] MEDS: ASPIRIN 81 MG TABLET, ENT COATED PO SCH (09:57)
[2020-06-19] MEDS: ASCORBIC ACID 500 MG TABLET PO SCH ×2 (09:57→17:39)
[2020-06-19] MEDS: ZINC SULFATE 220 MG CAPSULE PO SCH (09:57)
[2020-06-19] MEDS: TACROLIMUS ANHYDROUS 1 MG CAPSULE PO SCH ×2 (09:59→21:43)
[2020-06-19] MEDS ORDERED: REMDESIVIR 200 MG in NORMAL SALINE 250 ML IV ONE (15:00)
[2020-06-19] MEDS: ATORVASTATIN CALCIUM 40 MG TABLET PO SCH ×2 (16:48→21:43)
[2020-06-19] MEDS: AZITHROMYCIN 500 MG in DEXTROSE 5%-WATER 250 ML IV SCH (17:39)
--- NOTE | 2020-06-19 20:11 | PDOC PROGRESS REPORT ---
Subjective Date:: 06/19/20 Subjective:: Patient seen by the bedside, she was admitted over the weekend for Covid pneumon ia,She was seen by the bedside, medication was reviewed, she is status post kidney transplant Reason For Visit: COVID-19 PNEUMONIA, DEHYDRATION, HISTORY OF RENAL Physical Exam Vital Signs: Temp Pulse Resp BP Pulse Ox 97.8 F 79 16 162/61 H 92 06/19/20 15:48 06/19/20 15:48 06/19/20 15:48 06/19/20 15:48 06/19/20 15:48 Intake & Output 06/18/20 06/19/20 06/20/20 06:59 06:59 06:59 Intake Total 3872 4006 2292 Output Total 1650 854 600 Balance 2222 3152 1692 Weight 59.6 kg 59.6 kg General appearance: PRESENT: no acute distress Eye exam: PRESENT: PERRLA Respiratory exam: PRESENT: clear to auscultation brennan, rales Cardiovascular exam: PRESENT: +S1, +S2 GI/Abdominal exam: PRESENT: soft Neurological exam: PRESENT: alert, CN II-XII grossly intact Results Laboratory Results: 06/18/20 05:35 06/18/20 05:35 06/16/20 18:23 Troponin I < 0.012 Impressions: Chest X-Ray 06/16/20 14:29 IMPRESSION: Patchy bilateral parenchymal opacities concerning for a multifocal pneumonia (including atypical infections such as COVID-19). Assessment & Plan - Diagnosis (1) Pneumonia Qualifiers: Pneumonia type: due to unspecified organism Laterality: bilateral Lung location: unspecified part of lung Qualified Code(s): J18.9 - Pneumonia, unspecified organism Is this a current diagnosis for this admission?: Yes Plan: She has pneumonia, due to Covid, bacteria pneumonia, Cannot be rule out, Patient presently on antibiotic,She is presently not on antiviral remdesivir, this is started today (2) COVID-19 Is this a current diagnosis for this admission?: Yes Plan: She will continue remdesivir for 5 days, dexamethasone for 10 days (3) Kidney transplant status Is this a current diagnosis for this admission?: Yes Plan: Consult nephrology - Time Time Spent with patient: 35 or more minutes Level of Care: IMCU Medications reviewed and adjusted accordingly: Yes Anticipated discharge: Home Anticipated DC Timeframe: within 72 hours - Inpatient Certification Based on my medical assessment, after consideration of the patient's sophia rbidities, presenting symptoms, or acuity I expect that the services needed warrant INPATIENT care.: Yes I certify that my determination is in accordance with my understanding of Medicare's requirements for reasonable and necessary INPATIENT services [42 CFR 412.3e].: Yes
[2020-06-19] MEDS: CEFTRIAXONE 1 GM/D5W RTU 1 GM/50 ML RTUPB IV SCH (21:44)
[2020-06-20] MEDS: PANTOPRAZOLE SODIUM 40 MG TABLET.DR PO SCH (05:09)
[2020-06-20] MEDS: NORMAL SALINE 1000 ML 1,000 ML IV PRN ×2 (05:11→16:30)
[2020-06-20] MEDS: INSULIN LISPRO 100 UNIT/ML 3 ML VIAL SUBCUT SCH ×4 (08:58→21:33)
[2020-06-20] MEDS: ASCORBIC ACID 500 MG TABLET PO SCH ×2 (09:01→17:29)
[2020-06-20] MEDS: METOPROLOL TARTRATE 100 MG TABLET PO SCH ×2 (09:01→21:33)
[2020-06-20] MEDS: ASPIRIN 81 MG TABLET, ENT COATED PO SCH (09:02)
[2020-06-20] MEDS: DEXAMETHASONE SOD PHOS INJ 10 MG/1 ML VIAL IV SCH (09:02)
[2020-06-20] MEDS: ZINC SULFATE 220 MG CAPSULE PO SCH (09:02)
[2020-06-20] MEDS: REMDESIVIR 100 MG in NORMAL SALINE 250 ML IV SCH (10:59)
[2020-06-20] MEDS: TACROLIMUS ANHYDROUS 1 MG CAPSULE PO SCH ×2 (12:34→21:33)
--- NOTE | 2020-06-20 14:19 | EKG REPORT ---
SEVERITY:- ABNORMAL ECG - SINUS RHYTHM PROBABLE LEFT ATRIAL ABNORMALITY PROBABLE LEFT VENTRICULAR HYPERTROPHY : Confirmed by: Cecilia Thompson MD 20-Jun-2020 14:19:04
[2020-06-20] MEDS: AZITHROMYCIN 500 MG in DEXTROSE 5%-WATER 250 ML IV SCH (18:03)
--- NOTE | 2020-06-20 20:11 | PDOC PROGRESS REPORT ---
Subjective Date:: 06/20/20 Reason For Visit: COVID-19 PNEUMONIA, DEHYDRATION, HISTORY OF RENAL Physical Exam Vital Signs: Temp Pulse Resp BP Pulse Ox 97.7 F 79 16 128/56 H 100 06/20/20 16:23 06/20/20 19:00 06/20/20 16:23 06/20/20 16:23 06/20/20 16:23 Intake & Output 06/19/20 06/20/20 06/21/20 06:59 06:59 06:59 Intake Total 4006 3592 2310 Output Total 854 1250 650 Balance 3152 2342 1660 Weight 59.6 kg 61.7 kg 61.7 kg Results Laboratory Results: 06/18/20 05:35 06/18/20 05:35 06/16/20 18:23 Troponin I < 0.012 Impressions: Chest X-Ray 06/16/20 14:29 IMPRESSION: Patchy bilateral parenchymal opacities concerning for a multifocal pneumonia (including atypical infections such as COVID-19). Assessment & Plan - Diagnosis (1) Pneumonia Qualifiers: Pneumonia type: due to unspecified organism Laterality: bilateral Lung location: unspecified part of lung Qualified Code(s): J18.9 - Pneumonia, unspecified organism Is this a current diagnosis for this admission?: Yes (2) COVID-19 Is this a current diagnosis for this admission?: Yes (3) Kidney transplant status Is this a current diagnosis for this admission?: Yes
[2020-06-20] MEDS: ATORVASTATIN CALCIUM 40 MG TABLET PO SCH (21:33)
[2020-06-20] MEDS: CEFTRIAXONE 1 GM/D5W RTU 1 GM/50 ML RTUPB IV SCH (21:34)
[2020-06-20] MEDS ORDERED: NORMAL SALINE 100 ML with INSULIN REGULAR, HUMAN 100 UNIT IV PRN ×2 (22:47)
[2020-06-20] MEDS ORDERED: DEXTROSE 50%-WATER 25 GM/50 ML DISP.SYRIN IV PRN ×2 (22:47)
[2020-06-20] MEDS ORDERED: GLUCAGON,HUMAN RECOMB 1 MG INJ IM PRN (22:47)
[2020-06-20] MEDS ORDERED: DEXTROSE 40% GEL 15 GM TUBE PO PRN ×2 (22:47)
--- NOTE | 2020-06-20 22:50 | PDOC PROGRESS REPORT ---
Subjective Date:: 06/20/20 Subjective:: Patient seen by the bedside the diabetes is poorly controlled, partly because of the steroid she may need IV insulin drip temporarily to control the blood sugar Reason For Visit: COVID-19 PNEUMONIA, DEHYDRATION, HISTORY OF RENAL Physical Exam Vital Signs: Temp Pulse Resp BP Pulse Ox 98.4 F 73 20 167/59 H 97 06/20/20 20:18 06/20/20 19:54 06/20/20 19:54 06/20/20 19:54 06/20/20 19:54 Intake & Output 06/19/20 06/20/20 06/21/20 06:59 06:59 06:59 Intake Total 4006 3592 2310 Output Total 854 1250 650 Balance 3152 2342 1660 Weight 59.6 kg 61.7 kg 61.7 kg General appearance: PRESENT: no acute distress Eye exam: PRESENT: PERRLA Respiratory exam: PRESENT: clear to auscultation brennan Cardiovascular exam: PRESENT: +S1, +S2 GI/Abdominal exam: PRESENT: soft Neurological exam: PRESENT: alert Results Laboratory Results: 06/18/20 05:35 06/18/20 05:35 06/16/20 18:23 Troponin I < 0.012 Impressions: Chest X-Ray 06/16/20 14:29 IMPRESSION: Patchy bilateral parenchymal opacities concerning for a multifocal pneumonia (including atypical infections such as COVID-19). Assessment & Plan - Diagnosis (1) Pneumonia Qualifiers: Pneumonia type: due to unspecified organism Laterality: bilateral Lung location: unspecified part of lung Qualified Code(s): J18.9 - Pneumonia, unspecified organism Is this a current diagnosis for this admission?: Yes (2) COVID-19 Is this a current diagnosis for this admission?: Yes Plan: Continue remdesivir and other treatment (3) Kidney transplant status Is this a current diagnosis for this admission?: Yes (4) Type 2 diabetes mellitus Qualifiers: Diabetes mellitus front office associate insulin use: with front office associate use Diabetes mellitus complication status: with kidney complications Diabetes mellitus complication detail: with other kidney complication Qualified Code(s): E11.29 - Type 2 diabetes mellitus with other diabetic kidney complication; Z79.4 - [facility] (current) use of insulin Is this a current diagnosis for this admission?: Yes Plan: Start insulin drip - Time Time Spent with patient: 25-34 minutes Level of Care: IMCU Medications reviewed and adjusted accordingly: Yes Anticipated discharge: Home Anticipated DC Timeframe: Other
[2020-06-20] MEDS: HYDRALAZINE HCL INJ/PF 20 MG/1 ML SDV IV PRN (23:17)
[2020-06-21 00:02] LABS: ANION GAP 5 (5-19); BLOOD UREA NITROGEN 38 mg/dL (7-20); CALCIUM 9.1 mg/dL (8.4-10.2); CARBON DIOXIDE 17 mmol/L (22-30); CHLORIDE 110 mmol/L (98-107); GLUCOSE 378 mg/dL (75-110); POTASSIUM 5.6 mmol/L (3.6-5.0)
[2020-06-21] MEDS ORDERED: INSULIN REG, HUMAN 100 UNIT/ML 3 ML VIAL (PYX) ONE (00:57)
[2020-06-21 04:14] LABS: ANION GAP 8 (5-19); BLOOD UREA NITROGEN 37 mg/dL (7-20); CALCIUM 9.2 mg/dL (8.4-10.2); CARBON DIOXIDE 17 mmol/L (22-30); CHLORIDE 111 mmol/L (98-107); GLUCOSE 256 mg/dL (75-110); POTASSIUM 5.3 mmol/L (3.6-5.0)
[2020-06-21] MEDS: PANTOPRAZOLE SODIUM 40 MG TABLET.DR PO SCH (05:02)
[2020-06-21 08:15] LABS: BLOOD UREA NITROGEN 35 mg/dL (7-20); GLUCOSE 236 mg/dL (75-110); POTASSIUM 5.4 mmol/L (3.6-5.0)
[2020-06-21 08:21] LABS: CARBON DIOXIDE 19 mmol/L (22-30); CHLORIDE 112 mmol/L (98-107)
[2020-06-21 08:27] LABS: ANION GAP 3 (5-19)
[2020-06-21] MEDS: INSULIN LISPRO 100 UNIT/ML 3 ML VIAL SUBCUT SCH ×4 (08:28→21:29)
[2020-06-21] MEDS: ZINC SULFATE 220 MG CAPSULE PO SCH (09:36)
[2020-06-21] MEDS: DEXAMETHASONE SOD PHOS INJ 10 MG/1 ML VIAL IV SCH (09:36)
[2020-06-21] MEDS: ASCORBIC ACID 500 MG TABLET PO SCH ×2 (09:36→18:55)
[2020-06-21] MEDS: TACROLIMUS ANHYDROUS 1 MG CAPSULE PO SCH ×2 (09:36→21:29)
[2020-06-21] MEDS: ASPIRIN 81 MG TABLET, ENT COATED PO SCH (09:36)
[2020-06-21] MEDS: METOPROLOL TARTRATE 100 MG TABLET PO SCH ×2 (09:37→21:28)
[2020-06-21] MEDS: NORMAL SALINE 1000 ML 1,000 ML IV PRN (09:38)
[2020-06-21] MEDS: REMDESIVIR 100 MG in NORMAL SALINE 250 ML IV SCH (10:14)
[2020-06-21 11:25] LABS: ANION GAP 6 (5-19); BLOOD UREA NITROGEN 36 mg/dL (7-20); CALCIUM 9.1 mg/dL (8.4-10.2); CARBON DIOXIDE 18 mmol/L (22-30); CHLORIDE 112 mmol/L (98-107); GLUCOSE 162 mg/dL (75-110); POTASSIUM 4.6 mmol/L (3.6-5.0)
[2020-06-21 17:46] LABS: ANION GAP 6 (5-19); BLOOD UREA NITROGEN 37 mg/dL (7-20); CALCIUM 8.9 mg/dL (8.4-10.2); CARBON DIOXIDE 17 mmol/L (22-30); CHLORIDE 111 mmol/L (98-107); GLUCOSE 235 mg/dL (75-110)
[2020-06-21 17:55] LABS: POTASSIUM 6.3 mmol/L (3.6-5.0)
[2020-06-21] MEDS ORDERED: INSULIN GLARGINE,HUM.REC.ANLOG 1,000 UNIT/10 ML VIAL SUBCUT SCH (18:00)
[2020-06-21] MEDS ORDERED: INSULIN GLARGINE,HUM.REC.ANLOG 1,000 UNIT/10 ML VIAL (PYX) SUBCUT ONE (18:15)
--- NOTE | 2020-06-21 18:17 | PDOC PROGRESS REPORT ---
Subjective Date:: 06/21/20 Subjective:: Patient seen by the bedside, she was treated with insulin infusion for the contr ol of diabetes, She still has some cough, the diabetes is better controlled today Reason For Visit: COVID-19 PNEUMONIA, DEHYDRATION, HISTORY OF RENAL Physical Exam Vital Signs: Temp Pulse Resp BP Pulse Ox 98.3 F 61 20 142/58 H 99 06/21/20 15:04 06/21/20 15:04 06/21/20 15:04 06/21/20 15:04 06/21/20 15:04 Intake & Output 06/20/20 06/21/20 06/22/20 06:59 06:59 06:59 Intake Total 3592 3373 957 Output Total 1250 1550 900 Balance 2342 1823 57 Weight 61.7 kg 64 kg General appearance: PRESENT: no acute distress Eye exam: PRESENT: PERRLA Respiratory exam: PRESENT: clear to auscultation brennan Cardiovascular exam: PRESENT: +S1, +S2 GI/Abdominal exam: PRESENT: soft Neurological exam: PRESENT: alert Results Laboratory Results: 06/18/20 05:35 06/21/20 16:41 06/20/20 06/21/20 06/21/20 23:29 03:21 07:25 Sodium 132.4 L 136.2 L 134.2 L Potassium 5.6 H 5.3 H 5.4 H Chloride 110 H 111 H 112 H Carbon Dioxide 17 L 17 L 19 L Anion Gap 5 8 3 L BUN 38 H 37 H 35 H Creatinine 1.15 1.09 1.07 Est GFR ( Amer) 57 L > 60 > 60 Glucose 378 H 256 H 236 H Calcium 9.1 9.2 9.0 06/21/20 06/21/20 10:45 16:41 Sodium 135.9 L 134.0 L Potassium 4.6 6.3 H* D Chloride 112 H 111 H Carbon Dioxide 18 L 17 L Anion Gap 6 6 BUN 36 H 37 H Creatinine 1.08 1.07 Est GFR ( Amer) > 60 > 60 Glucose 162 H 235 H Calcium 9.1 8.9 06/16/20 18:23 Troponin I < 0.012 Impressions: Chest X-Ray 06/16/20 14:29 IMPRESSION: Patchy bilateral parenchymal opacities concerning for a multifocal pneumonia (including atypical infections such as COVID-19). Assessment & Plan - Diagnosis (1) Pneumonia Qualifiers: Pneumonia type: due to unspecified organism Laterality: bilateral Lung location: unspecified part of lung Qualified Code(s): J18.9 - Pneumonia, unspecified organism Is this a current diagnosis for this admission?: Yes Plan: Continue antibiotic, get a chest x-ray (2) COVID-19 Is this a current diagnosis for this admission?: Yes Plan: Continue remdesivir and other treatment (3) Kidney transplant status Is this a current diagnosis for this admission?: Yes (4) Type 2 diabetes mellitus Qualifiers: Diabetes mellitus watermaster insulin use: with watermaster use Diabetes mellitus complication status: with kidney complications Diabetes mellitus complication detail: with other kidney complication Qualified Code(s): E11.29 - Type 2 diabetes mellitus with other diabetic kidney complication; Z79.4 - watermaster (current) use of insulin Is this a current diagnosis for this admission?: Yes Plan: DC IV insulin infusion, start base Lantus - Time Time Spent with patient: 35 or more minutes Level of Care: IMCU Medications reviewed and adjusted accordingly: Yes Anticipated discharge: Home Anticipated DC Timeframe: Other - Inpatient Certification Based on my medical assessment, after consideration of the patient's comorbidities, presenting symptoms, or acuity I expect that the services needed warrant INPATIENT care.: Yes I certify that my determination is in accordance with my understanding of Medicare's requirements for reasonable and necessary INPATIENT services [42 CFR 412.3e].: Yes
[2020-06-21] MEDS ORDERED: CALCIUM GLUC IN NACL, ISO-OSM 1 GM/50 ML RTUPB IV ONE ×2 (18:19→21:30)
[2020-06-21] MEDS: AZITHROMYCIN 500 MG in DEXTROSE 5%-WATER 250 ML IV SCH (18:55)
--- NOTE | 2020-06-21 19:09 | RADIOLOGY REPORT (SQ) ---
EXAM DESCRIPTION: CHEST SINGLE VIEW IMAGES COMPLETED DATE/TIME: 06/21/2020 4:00 pm REASON FOR STUDY: pneumonia COMPARISON: 06/16/2020 EXAM PARAMETERS: NUMBER OF VIEWS: One view. TECHNIQUE: Single frontal radiographic view of the chest acquired. RADIATION DOSE: NA LIMITATIONS: None. FINDINGS: LUNGS AND PLEURA: Some mild patchy bilateral airspace opacities findings have slightly dec reased from prior examination. No pleural effusion or pneumothorax. MEDIASTINUM AND HILAR STRUCTURES: No masses. Contour normal. HEART AND VASCULAR STRUCTURES: Heart normal in size. Normal vasculature. BONES: No acute findings. HARDWARE: None in the chest. OTHER: No other significant finding. IMPRESSION: Bilateral mild patchy airspace opacities, slightly decreased from prior. TECHNICAL DOCUMENTATION: JOB ID: [id number] 2010 [employer]formerly [employer] All Rights Reserved Reading location - IP/workstation name: [email or web address]
[2020-06-21] MEDS: ATORVASTATIN CALCIUM 40 MG TABLET PO SCH (21:29)
[2020-06-21] MEDS: SODIUM POLYSTYRENE SULFONATE 15 GM/60 ML PO SCH (21:30)
--- NOTE | 2020-06-22 01:28 | Operative Report ---
Nonrecallable Operative Report DATE OF SURGERY: 06/22/20 PREOPERATIVE DIAGNOSIS: covid pneumonia POSTOPERATIVE DIAGNOSIS: same OPERATION: left internal jugular central line placement SURGEON: ALBERTO ASH ANESTHESIA: Local TISSUE REMOVED OR ALTERED: none COMPLICATIONS: none ESTIMATED BLOOD LOSS: 10cc INTRAOPERATIVE FINDINGS: see note PROCEDURE: initally the right neck prepped and draped 1%lidocane used as anesthestic over the right scm the internal jugular vein could not be cannulated. attention then turned to left neck again using 1% lidocaine area over the scm anesthesized then 22g need used as a finder of the left ij then 16g needle used to access the vein seldinger tech using j-wire placed into svc tract dilated iwth dilator, the 16g triple lumen pleced into the svc fixed to skin with 3-0 silk pt ryan well cxr pending.
--- NOTE | 2020-06-22 02:26 | RADIOLOGY REPORT (SQ) ---
CHEST X-RAY 1 VIEW on 06/22/2020 at 1:33 AM CLINICAL INDICATION: Line placement COMPARISON: 06/21/2020 FINDINGS: New left IJ central venous catheter tip is in the SVC. There is no pneumothorax. Left axillary stent is noted that is kinked superiorly. Mild patchy bilateral lower lung opacities are consistent with atelectasis or early pneumonia, differential diagnosis would include viral infections. Cardiac, hilar and mediastinal contours are within normal limits. Mild vascular calcification is noted in the aorta. IMPRESSION: New left IJ catheter tip in the SVC with no pneumothorax and otherwise no significant change.
[2020-06-22] MEDS ORDERED: NORMAL SALINE INJ/PF 0.9% 10 ML SDV IV PRN (02:35)
[2020-06-22] MEDS ORDERED: CALCIUM GLUC IN NACL, ISO-OSM 1 GM/50 ML RTUPB IV ONE (02:45)
[2020-06-22] MEDS: SODIUM POLYSTYRENE SULFONATE 15 GM/60 ML PO SCH ×3 (03:00→06:09)
[2020-06-22] MEDS: CEFTRIAXONE 1 GM/D5W RTU 1 GM/50 ML RTUPB IV SCH ×2 (03:13→22:32)
[2020-06-22] MEDS: NORMAL SALINE 1000 ML 1,000 ML IV PRN (03:30)
[2020-06-22] MEDS: PANTOPRAZOLE SODIUM 40 MG TABLET.DR PO SCH (05:39)
[2020-06-22 07:14] LABS: ANION GAP 7 (5-19); BLOOD UREA NITROGEN 41 mg/dL (7-20); CALCIUM 9.5 mg/dL (8.4-10.2); CARBON DIOXIDE 19 mmol/L (22-30); CHLORIDE 110 mmol/L (98-107); GLUCOSE 233 mg/dL (75-110)
[2020-06-22 07:33] LABS: POTASSIUM 5.1 mmol/L (3.6-5.0)
[2020-06-22] MEDS: INSULIN LISPRO 100 UNIT/ML 3 ML VIAL SUBCUT SCH ×4 (09:55→22:34)
[2020-06-22] MEDS: ASCORBIC ACID 500 MG TABLET PO SCH ×2 (09:55→17:28)
[2020-06-22] MEDS: VALSARTAN 160 MG TABLET PO SCH (09:55)
[2020-06-22] MEDS: ASPIRIN 81 MG TABLET, ENT COATED PO SCH (09:55)
[2020-06-22] MEDS: METOPROLOL TARTRATE 100 MG TABLET PO SCH ×2 (09:55→22:33)
[2020-06-22] MEDS: ZINC SULFATE 220 MG CAPSULE PO SCH (09:55)
[2020-06-22] MEDS: TACROLIMUS ANHYDROUS 1 MG CAPSULE PO SCH ×2 (09:55→22:33)
[2020-06-22] MEDS: DEXAMETHASONE SOD PHOS INJ 10 MG/1 ML VIAL IV SCH (09:56)
[2020-06-22] MEDS: INSULIN GLARGINE,HUM.REC.ANLOG 1,000 UNIT/10 ML VIAL SUBCUT SCH (09:56)
[2020-06-22] MEDS: REMDESIVIR 100 MG in NORMAL SALINE 250 ML IV SCH (12:41)
[2020-06-22 13:42] LABS: ANION GAP 9 (5-19); BLOOD UREA NITROGEN 37 mg/dL (7-20); CALCIUM 9.4 mg/dL (8.4-10.2); CARBON DIOXIDE 18 mmol/L (22-30); CHLORIDE 109 mmol/L (98-107); GLUCOSE 195 mg/dL (75-110); POTASSIUM 4.5 mmol/L (3.6-5.0)
[2020-06-22] MEDS: AZITHROMYCIN 500 MG in DEXTROSE 5%-WATER 250 ML IV SCH (17:46)
[2020-06-22] MEDS: ATORVASTATIN CALCIUM 40 MG TABLET PO SCH (22:33)
--- NOTE | 2020-06-22 22:41 | PDOC PROGRESS REPORT ---
Subjective Date:: 06/22/20 Subjective:: Patient seen by the bedside, chest x-ray from yesterday demonstrated improvement , she had a central line in the neck earlier this morning, she continues to make progress Reason For Visit: COVID-19 PNEUMONIA, DEHYDRATION, HISTORY OF RENAL Physical Exam Vital Signs: Temp Pulse Resp BP Pulse Ox 98.3 F 63 16 150/50 H 97 06/22/20 20:24 06/22/20 20:24 06/22/20 20:24 06/22/20 20:24 06/22/20 20:24 Intake & Output 06/21/20 06/22/20 06/23/20 06:59 06:59 06:59 Intake Total 3373 2517 1492 Output Total 1550 1750 Balance 6950 625 3503 Weight 64 kg 64 kg General appearance: PRESENT: no acute distress Eye exam: PRESENT: PERRLA Respiratory exam: PRESENT: clear to auscultation brennan Cardiovascular exam: PRESENT: +S1, +S2 GI/Abdominal exam: PRESENT: soft Neurological exam: PRESENT: alert Results Laboratory Results: 06/18/20 05:35 06/22/20 12:35 06/22/20 06/22/20 05:55 12:35 Sodium 135.8 L 135.9 L Potassium 5.1 H D 4.5 Chloride 110 H 109 H Carbon Dioxide 19 L 18 L Anion Gap 7 9 BUN 41 H 37 H Creatinine 1.23 1.13 Est GFR ( Amer) 53 L 58 L Glucose 233 H 195 H Calcium 9.5 9.4 06/16/20 22:08 Blood Blood Culture - Final NO GROWTH IN 5 DAYS 06/16/20 19:00 Blood Blood Culture - Final NO GROWTH IN 5 DAYS 06/16/20 18:23 Troponin I < 0.012 Impressions: Chest X-Ray 06/22/20 00:00 IMPRESSION: New left IJ catheter tip in the SVC with no pneumothorax and otherwise no significant change. Assessment & Plan - Diagnosis (1) Pneumonia Qualifiers: Pneumonia type: due to unspecified organism Laterality: bilateral Lung location: unspecified part of lung Qualified Code(s): J18.9 - Pneumonia, unspecified organism Is this a current diagnosis for this admission?: Yes Plan: She will continue IV antibiotic (2) COVID-19 Is this a current diagnosis for this admission?: Yes Plan: She will continue remdesivir, dexamethasone (3) Kidney transplant status Is this a current diagnosis for this admission?: Yes Plan: Continue antirejection medication (4) Type 2 diabetes mellitus Qualifiers: Diabetes mellitus usp insulin use: with usp use Diabetes mellit complication status: with kidney complications Diabetes mellitus compl ication detail: with other kidney complication Qualified Code(s): E11.29 - Type 2 diabetes mellitus with other diabetic kidney complication; Z79.4 - [facility] (current) use of insulin Is this a current diagnosis for this admission?: Yes Plan: Continue basal insulin and sliding scale - Time Time Spent with patient: 35 or more minutes Level of Care: IMCU Medications reviewed and adjusted accordingly: Yes Anticipated discharge: Home Anticipated DC Timeframe: Other
[2020-06-23] MEDS: PANTOPRAZOLE SODIUM 40 MG TABLET.DR PO SCH (05:41)
[2020-06-23] MEDS ORDERED: INFLUENZA QUAD (6MOS+) 2020-21 VAC 0.5 ML SYR IM ONE (08:00)
[2020-06-23] MEDS: INSULIN LISPRO 100 UNIT/ML 3 ML VIAL SUBCUT SCH ×4 (08:44→22:19)
[2020-06-23] MEDS: METOPROLOL TARTRATE 100 MG TABLET PO SCH ×2 (09:22→22:17)
[2020-06-23] MEDS: TACROLIMUS ANHYDROUS 1 MG CAPSULE PO SCH ×2 (09:22→22:18)
[2020-06-23] MEDS: ASCORBIC ACID 500 MG TABLET PO SCH ×2 (09:22→18:23)
[2020-06-23] MEDS: ASPIRIN 81 MG TABLET, ENT COATED PO SCH (09:22)
[2020-06-23] MEDS: VALSARTAN 160 MG TABLET PO SCH (09:22)
[2020-06-23] MEDS: ZINC SULFATE 220 MG CAPSULE PO SCH (09:23)
[2020-06-23] MEDS: INSULIN GLARGINE,HUM.REC.ANLOG 1,000 UNIT/10 ML VIAL SUBCUT SCH (09:23)
[2020-06-23] MEDS: DEXAMETHASONE SOD PHOS INJ 10 MG/1 ML VIAL IV SCH (09:23)
[2020-06-23] MEDS: REMDESIVIR 100 MG in NORMAL SALINE 250 ML IV SCH (09:35)
[2020-06-23] MEDS: AZITHROMYCIN 500 MG in DEXTROSE 5%-WATER 250 ML IV SCH (18:23)
--- NOTE | 2020-06-23 22:10 | PDOC PROGRESS REPORT ---
Subjective Date:: 06/23/20 Subjective:: Patient seen by the bedside, she continues to improve, she finished the intraven ous remdesivir today, hopefully she be discharge home on Friday Reason For Visit: COVID-19 PNEUMONIA, DEHYDRATION, HISTORY OF RENAL Physical Exam Vital Signs: Temp Pulse Resp BP Pulse Ox 98.7 F 62 20 135/52 H 95 06/23/20 16:28 06/23/20 16:28 06/23/20 16:28 06/23/20 16:28 06/23/20 16:28 Intake & Output 06/22/20 06/23/20 06/24/20 06:59 06:59 06:59 Intake Total 2517 2342 530 Output Total 1750 1050 Balance 767 1292 530 Weight 64 kg 62.3 kg General appearance: PRESENT: no acute distress Eye exam: PRESENT: PERRLA Respiratory exam: PRESENT: clear to auscultation brennan Cardiovascular exam: PRESENT: +S1, +S2 GI/Abdominal exam: PRESENT: soft Neurological exam: PRESENT: alert Results Laboratory Results: 06/18/20 05:35 06/22/20 12:35 06/16/20 18:23 Troponin I < 0.012 Impressions: Chest X-Ray 06/22/20 00:00 IMPRESSION: New left IJ catheter tip in the SVC with no pneumothorax and otherwise no significant change. Assessment & Plan - Diagnosis (1) Pneumonia Qualifiers: Pneumonia type: due to unspecified organism Laterality: bilateral Lung location: unspecified part of lung Qualified Code(s): J18.9 - Pneumonia, unspecified organism Is this a current diagnosis for this admission?: Yes (2) COVID-19 Is this a current diagnosis for this admission?: Yes Plan: Patient finished intravenous remdesivir today (3) Kidney transplant status Is this a current diagnosis for this admission?: Yes Plan: Continue antirejection medication (4) Type 2 diabetes mellitus Qualifiers: Diabetes mellitus correction insulin use: with medical terminologist use Diabetes marcelina gonzalez complication status: with kidney complications Diabetes mellitus comp lication detail: with other kidney complication Qualified Code(s): E11.29 - Type 2 diabetes mellitus with other diabetic kidney complication; Z79.4 - [facility] (current) use of insulin Is this a current diagnosis for this admission?: Yes - Time Time Spent with patient: 35 or more minutes Level of Care: IMCU Medications reviewed and adjusted accordingly: Yes Anticipated discharge: Home Anticipated DC Timeframe: within 48 hours
[2020-06-23] MEDS: ATORVASTATIN CALCIUM 40 MG TABLET PO SCH (22:19)
[2020-06-23] MEDS: CEFTRIAXONE 1 GM/D5W RTU 1 GM/50 ML RTUPB IV SCH (22:19)
[2020-06-23] MEDS: ENOXAPARIN SODIUM INJ 40 MG/0.4 ML DISP.SYRIN SUBCUT SCH (22:21)
[2020-06-23] MEDS ORDERED: ENOXAPARIN SODIUM INJ 40 MG/0.4 ML DISP.SYRIN SUBCUT ONE (23:45)
[2020-06-24] MEDS: PANTOPRAZOLE SODIUM 40 MG TABLET.DR PO SCH (05:31)
[2020-06-24] MEDS: INSULIN LISPRO 100 UNIT/ML 3 ML VIAL SUBCUT SCH ×4 (09:00→22:09)
[2020-06-24] MEDS: VALSARTAN 160 MG TABLET PO SCH (09:02)
[2020-06-24] MEDS: ZINC SULFATE 220 MG CAPSULE PO SCH (09:03)
[2020-06-24] MEDS: METOPROLOL TARTRATE 100 MG TABLET PO SCH ×2 (09:03→21:27)
[2020-06-24] MEDS: ASPIRIN 81 MG TABLET, ENT COATED PO SCH (09:03)
[2020-06-24] MEDS: INSULIN GLARGINE,HUM.REC.ANLOG 1,000 UNIT/10 ML VIAL SUBCUT SCH (09:03)
[2020-06-24] MEDS: ASCORBIC ACID 500 MG TABLET PO SCH ×2 (09:03→17:09)
[2020-06-24] MEDS: DEXAMETHASONE SOD PHOS INJ 10 MG/1 ML VIAL IV SCH (09:04)
[2020-06-24] MEDS: TACROLIMUS ANHYDROUS 1 MG CAPSULE PO SCH ×2 (12:16→21:26)
--- NOTE | 2020-06-24 18:05 | PDOC PROGRESS REPORT ---
Subjective Date:: 06/24/20 Subjective:: Patient is seen by the bedside, she continues to improve, a repeat chest x-ray t o be done today, for discharge home tomorrow if she maintains her present condition Reason For Visit: COVID-19 PNEUMONIA, DEHYDRATION, HISTORY OF RENAL Physical Exam Vital Signs: Temp Pulse Resp BP Pulse Ox 98.4 F 65 16 132/52 H 98 06/24/20 12:00 06/24/20 14:00 06/24/20 12:00 06/24/20 12:00 06/24/20 12:00 Intake & Output 06/23/20 06/24/20 06/25/20 06:59 06:59 06:59 Intake Total 2342 1305 Output Total 1050 800 Balance 1292 505 Weight 62.3 kg 62.9 kg 62.9 kg General appearance: PRESENT: no acute distress Eye exam: PRESENT: PERRLA Respiratory exam: PRESENT: clear to auscultation brennan Cardiovascular exam: PRESENT: +S1, +S2 GI/Abdominal exam: PRESENT: soft Neurological exam: PRESENT: alert Results Laboratory Results: 06/18/20 05:35 06/22/20 12:35 06/16/20 18:23 Troponin I < 0.012 Impressions: Chest X-Ray 06/22/20 00:00 IMPRESSION: New left IJ catheter tip in the SVC with no pneumothorax and otherwise no significant change. Assessment & Plan - Diagnosis (1) Pneumonia Qualifiers: Pneumonia type: due to unspecified organism Laterality: bilateral Lung location: unspecified part of lung Qualified Code(s): J18.9 - Pneumonia, unspecified organism Is this a current diagnosis for this admission?: Yes (2) COVID-19 Is this a current diagnosis for this admission?: Yes Plan: Patient finished intravenous remdesivir (3) Kidney transplant status Is this a current diagnosis for this admission?: Yes (4) Type 2 diabetes mellitus Qualifiers: Diabetes mellitus jail insulin use: with jail use Diabetes mellitus complication status: with kidney complications Diabetes mellitus complication detail: with other kidney complication Qualified Code(s): E11.29 - Type 2 diabetes mellitus with other diabetic kidney complication; Z79.4 - long-term (current) use of insulin Is this a current diagnosis for this admission?: Yes - Time Time Spent with patient: 25-34 minutes Level of Care: IMCU Medications reviewed and adjusted accordingly: Yes Anticipated discharge: Home Anticipated DC Timeframe: within 24 hours
--- NOTE | 2020-06-24 18:52 | RADIOLOGY REPORT (SQ) ---
EXAM DESCRIPTION: CHEST SINGLE VIEW IMAGES COMPLETED DATE/TIME: 06/24/2020 6:37 pm REASON FOR STUDY: cxr COMPARISON: 06/22/2020. EXAM PARAMETERS: NUMBER OF VIEWS: One view. TECHNIQUE: Single frontal radiographic view of the chest acquired. RADIATION DOSE: NA LIMITATIONS: None. FINDINGS: LUNGS AND PLEURA: No opacities, masses or pneumothorax. No pleural effusion. MEDIASTINUM AND HILAR STRUCTURES: No masses. Contour normal. HEART AND VASCULAR STRUCTURES: Heart upper limits of normal in size. Normal vasculature. BONES: No acute findings. HARDWARE: Central line. Left axillary stent. OTHER: No other significant finding. IMPRESSION: NO ACUTE RADIOGRAPHIC FINDING IN THE CHEST. TECHNICAL DOCUMENTATION: JOB ID: [id number] 2010 [employer]- All Rights Reserved Reading location - IP/workstation name: [email or web address]
[2020-06-24 19:34] LABS: ABSOLUTE LYMPHOCYTES (AUTO) 0.6 10^3/uL (0.5-4.7); ABSOLUTE MONOCYTES (AUTO) 0.2 10^3/uL (0.1-1.4); ABSOLUTE NEUT (AUTO) 4.7 10^3/uL (1.7-8.2); HEMATOCRIT 26.9 % (36.0-47.0); HEMOGLOBIN 8.3 g/dL (12.0-15.5); LYMPHOCYTES % (AUTO) 10.3 % (13-45); MEAN CORPUSCULAR HEMOGLOBIN 26.2 pg (27.0-33.4); MEAN CORPUSCULAR HGB CONC 31.1 g/dL (32.0-36.0); MEAN CORPUSCULAR VOLUME 84 fl (80-97); MONOCYTES % (AUTO) 3.4 % (3-13); PLATELET COUNT 207 10^3/uL (150-450); RED BLOOD COUNT 3.18 10^6/uL (3.72-5.28); RED CELL DISTRIBUTION WIDTH 15.5 % (11.5-14.0); SEGMENTED NEUTROPHILS % (AUTO) 86.3 % (42-78); TOTAL CELLS COUNTED % (AUTO) 100 %; WHITE BLOOD COUNT 5.5 10^3/uL (4.0-10.5)
[2020-06-24 19:54] LABS: ALBUMIN 2.3 g/dL (3.5-5.0); ALKALINE PHOSPHATASE 88 U/L (38-126); ANION GAP 6 (5-19); ASPARTATE AMINO TRANSFERASE 43 U/L (14-36); BILIRUBIN,DIRECT 0.1 mg/dL (0.0-0.4); BILIRUBIN,TOTAL 0.2 mg/dL (0.2-1.3); BLOOD UREA NITROGEN 32 mg/dL (7-20); CALCIUM 8.1 mg/dL (8.4-10.2); CARBON DIOXIDE 20 mmol/L (22-30); CHLORIDE 109 mmol/L (98-107); GLUCOSE 200 mg/dL (75-110); TOTAL PROTEIN 4.7 g/dL (6.3-8.2)
[2020-06-24] MEDS: ATORVASTATIN CALCIUM 40 MG TABLET PO SCH (21:26)
[2020-06-24] MEDS: ENOXAPARIN SODIUM INJ 40 MG/0.4 ML DISP.SYRIN SUBCUT SCH (21:27)
[2020-06-25] MEDS: PANTOPRAZOLE SODIUM 40 MG TABLET.DR PO SCH (05:38)
[2020-06-25] MEDS: INSULIN LISPRO 100 UNIT/ML 3 ML VIAL SUBCUT SCH ×2 (08:07→14:03)
[2020-06-25] MEDS: INSULIN GLARGINE,HUM.REC.ANLOG 1,000 UNIT/10 ML VIAL SUBCUT SCH (08:09)
[2020-06-25] MEDS: VALSARTAN 160 MG TABLET PO SCH (10:50)
[2020-06-25] MEDS: DEXAMETHASONE SOD PHOS INJ 10 MG/1 ML VIAL IV SCH (10:50)
[2020-06-25] MEDS: ASPIRIN 81 MG TABLET, ENT COATED PO SCH (10:50)
[2020-06-25] MEDS: ASCORBIC ACID 500 MG TABLET PO SCH (10:51)
[2020-06-25] MEDS: METOPROLOL TARTRATE 100 MG TABLET PO SCH (10:51)
[2020-06-25] MEDS: TACROLIMUS ANHYDROUS 1 MG CAPSULE PO SCH (10:51)
[2020-06-25] MEDS: ZINC SULFATE 220 MG CAPSULE PO SCH (10:51)
[2020-06-25] MEDS: ERGOCALCIFEROL (VITAMIN D2) 50000 UNIT (1.25 MG) CAPSULE PO SCH (10:54)
[2020-06-25 13:34] VITALS: BP 151/46
--- NOTE | 2020-06-25 16:36 | PDOC DISCHARGE SUMMARY ---
Impression - Admit/DC Date/PCP Admission Date/Primary Care Provider: 06/16/20 22:33 DAMIAN GAMEZ MD Discharge Date: 06/25/20 - Discharge Diagnosis (1) Pneumonia Is this a current diagnosis for this admission?: Yes (2) COVID-19 Is this a current diagnosis for this admission?: Yes (3) Kidney transplant status Is this a current diagnosis for this admission?: Yes (4) Type 2 diabetes mellitus Is this a current diagnosis for this admission?: Yes - Additional Information Resuscitation Status: Full Code Discharge Diet: Diabetic Discharge Activity: Activity As Tolerated, Balance Activity w/Rest Referrals: DAMIAN GAMEZ MD [Primary Care Provider] - Follow up as needed Prescriptions: Valsartan [Diovan 160 mg Tablet] 320 mg PO DAILY #90 tablet Insulin Glargine,Hum.rec.anlog [Lantus Insulin 100 Unit/1 ml 10 ml] 20 unit SUBCUT QAM #3 unit Home Medications: Metoprolol Tartrate [Lopressor] 100 mg PO Q12 10/17/15 Tacrolimus [Prograf] 4 mg PO Q12 10/17/15 Mycophenolate Sodium [Myfortic 180 mg Tablet.dr] 720 mg PO Q12 04/15/17 Aspirin [Aspirin EC] 81 mg PO DAILY 02/11/18 Insulin Aspart [Novolog Flexpen] 0 units IM .SLIDING SCALE 02/11/18 Liraglutide [Victoza 2-Chris] 1.8 mg SQ DAILY 02/11/18 Atorvastatin Calcium [Lipitor 40 mg Tablet] 40 mg PO QHS 06/17/20 Ergocalciferol (Vitamin D2) [Vitamin D2] 50,000 unit PO SANCHEZ@1000 06/17/20 Insulin Glargine,Hum.rec.anlog [Lantus Insulin 100 Unit/1 ml 10 ml] 20 unit SUBCUT QAM #3 unit 06/25/20 Valsartan [Diovan 160 mg Tablet] 320 mg PO DAILY #90 tablet 06/25/20 History of Present Illiness History of Present Illness: MONIQUE CRUZ is a 64 year old female patient who was instructed to present to the ED for 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 She denied any associated nausea, vomiting, or abdominal pain. She reported associated intermittent left sided back pain and lack of urination for since 11 am on the day of her presentation. She is a recipient of kidney transplant. She claimed no change in her adequate water intake. She denied any significant fever or chills. Her initial ED evaluation was significant for renal indices suggestive of pre-renal azotemia, hyperglycemia, and abnormal urinalysis suggestive of possible infection.. She was advised hospitalization for further evaluation and management. Hospital Course Hospital Course: Patient was admitted for the management of COVID-19 positive test (U07.1, COVID- 19) with Acute Pneumonia (J12.89, Other viral pneumonia)(If respiratory failure or sepsis present, add as separate assessment).She has underlining comorbidity including diabetes mellitus status post kidney transplant patient on immunosuppressive drug.The initial chest x-ray that was done on admission demonstrated patchy bilateral parenchymal opacities there is no pleural effusion or pneumothorax consistent with multifocal pneumonia as in COVID-19 pneumonia. She was advised inpatient care.She was treated with intravenous remdesivir for 5 days, intravenous dexamethasone for 10 days, patient improved both clinically and radiographically.Subsequent chest x-ray that was done demonstrated improved aeration Physical Exam Vital Signs: Temp Pulse Resp BP Pulse Ox 98.4 F 62 16 151/46 H 95 06/25/20 13:23 06/25/20 13:23 06/25/20 13:23 06/25/20 13:23 06/25/20 13:23 Intake & Output 06/24/20 06/25/20 06/26/20 06:59 06:59 06:59 Intake Total 1305 457 Output Total 800 650 Balance 505 -193 Weight 62.9 kg 62.3 kg General appearance: PRESENT: no acute distress Eye exam: PRESENT: PERRLA Respiratory exam: PRESENT: clear to auscultation brennan Cardiovascular exam: PRESENT: +S1, +S2 GI/Abdominal exam: PRESENT: soft Neurological exam: PRESENT: alert Results Laboratory Results: WBC 5.5 10^3/uL (4.0-10.5) 06/24/20 19:15 RBC 3.18 10^6/uL (3.72-5.28) L 06/24/20 19:15 Hgb 8.3 g/dL (12.0-15.5) L 06/24/20 19:15 Hct 26.9 % (36.0-47.0) L 06/24/20 19:15 MCV 84 fl (80-97) 06/24/20 19:15 MCH 26.2 pg (27.0-33.4) L 06/24/20 19:15 MCHC 31.1 g/dL (32.0-36.0) L 06/24/20 19:15 RDW 15.5 % (11.5-14.0) H 06/24/20 19:15 Plt Count 207 10^3/uL (150-450) 06/24/20 19:15 Lymph % (Auto) 10.3 % (13-45) L 06/24/20 19:15 [place] % (Auto) 3.4 % (3-13) 06/24/20 19:15 Eos % (Auto) 0.0 % (0-6) 06/24/20 19:15 Baso % (Auto) 0.0 % (0-2) 06/24/20 19:15 Absolute Neuts (auto) 4.7 10^3/uL (1.7-8.2) 06/24/20 19:15 Absolute Lymphs (auto) 0.6 10^3/uL (0.5-4.7) 06/24/20 19:15 Absolute Monos (auto) 0.2 10^3/uL (0.1-1.4) 06/24/20 19:15 Absolute Eos (auto) 0.0 10^3/uL (0.0-0.6) 06/24/20 19:15 Absolute Basos (auto) 0.0 10^3/uL (0.0-0.2) 06/24/20 19:15 Seg Neutrophils % 86.3 % (42-78) H 06/24/20 19:15 D-Dimer 0.80 ug/mL (0.00-0.50) H 06/16/20 18:23 Sodium 134.9 mmol/L (137-145) L 06/24/20 19:15 Potassium 5.0 mmol/L (3.6-5.0) 06/24/20 19:15 Chloride 109 mmol/L (98-107) H 12/19/20 19:15 Carbon Dioxide 20 mmol/L (22-30) L 06/24/20 19:15 Anion Gap 6 (5-19) 06/24/20 19:15 BUN 32 mg/dL (7-20) H 06/24/20 19:15 Creatinine 1.01 mg/dL (0.52-1.25) 06/24/20 19:15 Est GFR ( Amer) > 60 (>60) 06/24/20 19:15 Est GFR (MDRD) Non-Af 55 (>60) L 06/24/20 19:15 Glucose 200 mg/dL (75-110) H 06/24/20 19:15 POC Glucose 152 mg/dL (70-110) H 06/25/20 11:51 Calcium 8.1 mg/dL (8.4-10.2) L 06/24/20 19:15 Ferritin 1480.00 ng/mL (11.1-264.0) H 06/16/20 18:23 Total Bilirubin 0.2 mg/dL (0.2-1.3) 06/24/20 19:15 Direct Bilirubin 0.1 mg/dL (0.0-0.4) 06/24/20 19:15 Neonat Total Bilirubin Not Reportable 06/24/20 19:15 Neonat Direct Bilirubin Not Reportable 06/24/20 19:15 Neonat Indirect Bili Not Reportable 06/24/20 19:15 AST 43 U/L (14-36) H 06/24/20 19:15 ALT 31 U/L (<35) 06/24/20 19:15 Alkaline Phosphatase 88 U/L (38-126) 06/24/20 19:15 Troponin I < 0.012 ng/mL 06/16/20 18:23 C-Reactive Protein 46.1 mg/L (<10.0) H 06/16/20 18:23 Total Protein 4.7 g/dL (6.3-8.2) L 06/24/20 19:15 Albumin 2.3 g/dL (3.5-5.0) L 06/24/20 19:15 Urine Color YELLOW 06/16/20 22:50 Urine Appearance CLOUDY 06/16/20 22:50 Urine pH 5.0 (5.0-9.0) 06/16/20 22:50 Ur Specific [place] 1.006 06/16/20 22:50 Urine Protein 30 mg/dL (NEGATIVE) H 06/16/20 22:50 Urine Glucose (UA) >=500 mg/dL (NEGATIVE) H 06/16/20 22:50 Urine Ketones TRACE mg/dL (NEGATIVE) H 06/16/20 22:50 Urine Blood SMALL (NEGATIVE) H 06/16/20 22:50 Urine Nitrite NEGATIVE (NEGATIVE) 06/16/20 22:50 Urine Bilirubin NEGATIVE (NEGATIVE) 06/16/20 22:50 Urine Urobilinogen NEGATIVE mg/dL (<2.0) 06/16/20 22:50 Ur Leukocyte Esterase LARGE (NEGATIVE) H 06/16/20 22:50 Urine WBC (Auto) >182 /HPF 06/16/20 22:50 Urine RBC (Auto) 5 /HPF 06/16/20 22:50 U Hyaline Cast (Auto) 3 /LPF 06/16/20 22:50 Urine Bacteria (Auto) 3+ /HPF 06/16/20 22:50 Urine WBC Clumps FEW /HPF 06/16/20 22:50 Squamous Epi Cells Auto 1 /HPF 06/16/20 22:50 Urine Mucus (Auto) RARE /LPF 06/16/20 22:50 Urine Ascorbic Acid NEGATIVE (NEGATIVE) 06/16/20 22:50 Tacrolimus 18.0 ng/mL (2.0-20.0) 06/21/20 03:21 06/16/20 18:23 Troponin I < 0.012 Impressions: Chest X-Ray 06/16/20 14:29 IMPRESSION: Patchy bilateral parenchymal opacities concerning for a multifocal pneumonia (including atypical infections such as COVID-19). Chest X-Ray 06/21/20 00:00 IMPRESSION: Bilateral mild patchy airspace opacities, slightly decreased from prior. Chest X-Ray 06/22/20 00:00 IMPRESSION: New left IJ catheter tip in the SVC with no pneumothorax and otherwise no significant change. Chest X-Ray 06/24/20 00:00 IMPRESSION: NO ACUTE RADIOGRAPHIC FINDING IN THE CHEST. Stroke Is this a Stroke Patient?: No Acute Heart Failure Is this a Heart Failure Patient?: No
== END 2020-06-25 15:00 | disposition home or self-care (01) | DRG 177 ==
LOC: ER 14:11 → EH 22:33 → 3N 23:31
PROVIDERS: ADMIT Internal Medicine; ATTEND Internal Medicine
PROC: XW033E5 Introduction of Remdesivir Anti-infective into Peripheral Vein, Percutaneous Approach, New Technology Group 5 (ICD-10-PCS; 2020-06-19)
PROC: 02HV33Z Insertion of Infusion Device into Superior Vena Cava, Percutaneous Approach (ICD-10-PCS; principal; 2020-06-22)
DX: U07.1 COVID-19 (principal); J12.89 Other viral pneumonia; Z94.0 Kidney transplant status; E11.65 Type 2 diabetes mellitus with hyperglycemia; E11.22 Type 2 diabetes mellitus with diabetic chronic kidney disease; E78.5 Hyperlipidemia, unspecified; M19.90 Unspecified osteoarthritis, unspecified site; D64.9 Anemia, unspecified; Z90.49 Acquired absence of other specified parts of digestive tract; Z98.84 Bariatric surgery status; Z90.710 Acquired absence of both cervix and uterus; E86.0 Dehydration; Z79.4 Long term (current) use of insulin; Z92.25 Personal history of immunosuppression therapy
CPT/HCPCS: 36415; 71045; 80048; 80053; 80197; 81001; 82728; 82962; 84484; 85025; 85027; 85379; 86140; 87040; 87086; 90471; 90686; 93005; 93010; 96361; 96365; 96368; 96375; 99285; J0610; G0008; J0360; J0456; J0696; J1100; J1642; J1650; J1815; J2405; J3490; J7030; J7050; J7060; J7507